=== PATIENT | female | born 1945 | race African-American/Black ===

== ENCOUNTER → 2018-06-17 13:12 | Outpatient (POV) | payer MEDICARE, OTHER, SELFPAY | PROVIDERS: Visit Provider Specialist | DX: R20.2 Paresthesia of skin (principal) | CPT/HCPCS: 95886; 95908 ==

== ENCOUNTER → 2022-10-11 11:40 | Outpatient (CLI) | payer MEDICARE, OTHER, SELFPAY ==
--- NOTE | 2022-10-11 11:47 | CA_ITS ---
FINAL REPORT TECHNIQUE: Ultrasound images of the deep venous system were obtained from the left groin to the calf veins. CLINICAL HISTORY: Left leg pain and edema for 1 month COMPARISON: None FINDINGS: The deep venous system is normally compressible. Normal flow is identified. IMPRESSION: No evidence of left lower extremity DVT. Reviewed, Interpreted and Dictated by Ant Galvan III, MD Transcribed by Xi Solis Authenticated and [facility]
== END ==
PROVIDERS: PCP Family Medicine; Visit Provider Nurse Practitioner Family
DX: M79.662 Pain in left lower leg (principal)
CPT/HCPCS: 93971

== ENCOUNTER → 2022-11-10 12:49 | Outpatient (CLI) | payer MEDICARE, OTHER, SELFPAY ==
--- NOTE | 2022-11-10 12:54 | US_ITS ---
FINAL REPORT CLINICAL HISTORY: leg pain, HTN, Smoker COMPARISON: None FINDINGS: ANKLE-BRACHIAL PRESSURE INDICES Pressure indices are as follows: RIGHT LOWER EXTREMITY: Ankle-brachial pressure index: 0.56 Comments: Moderate vascular disease LEFT LOWER EXTREMITY: Ankle-brachial pressure index: 0.46 Comments: Moderate vascular disease IMPRESSION: Moderate vascular disease bilaterally. If indicated, CTA or catheter angiogram may be helpful. Reviewed, Interpreted and Dictated by Ant Galvan III, MD Transcribed by Xi Solis Authenticated and [facility]
== END ==
PROVIDERS: PCP Family Medicine; Visit Provider Physician Assistant
DX: R01.1 Cardiac murmur, unspecified (principal); I73.9 Peripheral vascular disease, unspecified
CPT/HCPCS: 93306; 93923

== ENCOUNTER 2022-11-22 09:31 | Day surgery (SDC) | payer MEDICARE, OTHER, SELFPAY ==
[2022-11-22] VITALS (10 sets, daily range): BP systolic 140–180; BP diastolic 81–102; PULSE 74–88; RESP 17–20; TEMP 36.6; O2SAT 96–100; BMI 34.3
--- NOTE | 2022-11-22 07:05 | IR_ITS ---
APPROVED REPORT Patient Location: Outpatient PROCEDURES Right radial arterial access Catheter placed in the right common iliac artery Right common iliac artery antegrade angiogram with unilateral runoff to the right foot Catheter placement in the left common iliac artery Left common iliac artery antegrade angiogram with unilateral runoff to the left foot Catheter placed to the distal abdominal aorta Distal abdominal aortogram INDICATION Abnormal PALMER 0.5 bilaterally, Peripheral artery disease, Roane claudication class III Informed consent was obtained prior to the procedure. COMPLICATIONS None Estimated Blood Loss: Less than 10 mls TECHNIQUE 1% lidocaine used to incise the right anterior aspect of the right wrist. The right radial artery was accessed via the Salinger technique and a 6 Frisian hydrophilic sheath was placed in the right radial artery. An arterial cocktail using heparin lidocaine nitroglycerin and verapamil was administered intra-arterially. A PV multi curve was advanced under a wire and fluoroscopic guidance and placed in the right common iliac artery right common iliac artery antegrade angiography was performed with unilateral runoff to the right foot. This procedure was then repeated in the left common iliac artery. The catheter was then pulled back to the distal abdominal aorta where distal abdominal aortography was performed. Because of the presence of an apparent infrarenal abdominal aortic aneurysm it was decided to not intervene and do a CTA to determine if an aneurysm is actually present. Because of this the apparatus was removed the sheath was removed and hemostasis was achieved using TR banding patient was transferred the postop putting in stable condition ANGIOGRAPHIC RESULTS Infrarenal abdominal aorta is atheromatous and appears to have small infrarenal abdominal aortic aneurysm Left common iliac artery has an ostial 50 to 60% stenosis with a distal eccentric 70 to 80% stenosis. The left external iliac artery is severely diffusely diseased with diffuse 70 to 80% stenoses. The left common femoral artery is calcified with 60 to 70% stenoses. The left profunda femoris artery is widely patent. The left superficial femoral artery is ostially occluded and reconstitutes at Jose Raul's canal via a large densely collateralized profunda femoris. The popliteal artery has mild atheromatous plaque and has 30% distal stenoses. This gives rise to a large anterior tibialis artery which is patent into the left foot. The left posterior tibialis artery is proximally occluded. The left peroneal artery is patent in the proximal segment and then occluded at mid segment and then reconstitutes. All arteries terminate just proximal to the left foot with scant collaterals entering the foot Right common iliac artery has an ostial 70% stenosis distal high-grade stenosis with an occluded right internal iliac artery. The right external iliac artery is densely calcified with diffuse 70 to 80% stenoses. The right common femoral artery is densely calcified with 70 to 80% stenoses. The right superficial femoral artery is ostially occluded. The right profunda femoris artery is patent and collateralizes the popliteal artery at Jose Raul's canal. Distal to the Jose Raul's canal the popliteal artery has calcified long 50% stenosis. The right anterior tibialis artery has proximal 90% stenoses is small in caliber and then subtotally occludes at mid segment. It then reconstitutes distally via collaterals from a patent peroneal artery. The posterior tibialis artery is proximally occluded. The dorsalis pedis anterior to the foot via collaterals. There are scant collaterals at the posterior tibialis artery level IMPRESSION Severe disease as described above Possible infrar
[2022-11-22 10:44] LABS: Basophils # 0.1 K/mm3 (0-0.2); Basophils % 0.8 % (0.1-2.0); Eosinophils # 0.2 K/mm3 (0.0-0.4); Eosinophils % 2.9 % (0.1-12.0); Hematocrit 45.2 % (37.0-47.0); Hemoglobin 14.1 g/dL (12.2-16.2); Lymphocytes # 1.9 K/mm3 (0.7-4.5); Lymphocytes % 27.8 % (10-50); Mean Corpuscular HGB Conc 31.2 g/dL (31.8-35.4); Mean Corpuscular Hemoglobin 27.5 pg (27.0-31.2); Mean Corpuscular Volume 88.2 fl (81-99); Mean Platelet Volume 9.1 fl (7.4-10.4); Monocytes # 0.3 K/mm3 (0.1-1.0); Monocytes % 4.6 % (1.7-9.3); Neutrophils # 4.3 K/mm3 (1.8-7.8); Neutrophils % 63.9 % (37.0-80.0); Platelet Count 307 K/mm3 (142-424); Red Blood Count 5.12 M/mm3 (4.20-5.40); Red Cell Distribution Width 13.9 % (11.5-17.5); White Blood Count 6.8 K/mm3 (4.8-10.8)
[2022-11-22 10:51] LABS: Anion Gap 11.4 mEq/L (5-15); Blood Urea Nitrogen 17 mg/dl (7-17); Calcium 8.9 mg/dl (8.4-10.2); Carbon Dioxide 26 mmol/L (22.0-30.0); Chloride 109 mmol/L (98-107); Creatinine Clearance Estimated 70 mL/min (50-200); Estimated Glomerular Filt Rate 61 ml/min (>60); GFR (African American) 74 ML/MIN (>60); Glucose 103 mg/dl (74-100); Potassium 4.4 mmoL/L (3.5-5.1); Sodium 142 mmol/L (136-145)
== END 2022-11-22 16:10 | disposition home or self-care (01) ==
PROVIDERS: PCP Family Medicine; Visit Provider Internal Medicine
DX: I70.213 Atherosclerosis of native arteries of extremities with intermittent claudication, bilateral legs (principal); M79.606 Pain in leg, unspecified; F17.210 Nicotine dependence, cigarettes, uncomplicated; I77.1 Stricture of artery
CPT/HCPCS: 36247; 36248; 75625; 80048; 85025; 99152; 99153; C1725; C1769; J1644; Q9967

== ENCOUNTER → 2022-12-15 12:33 | Outpatient (CLI) | payer MEDICARE, OTHER, SELFPAY ==
--- NOTE | 2022-12-15 12:38 | CT_ITS ---
FINAL REPORT CLINICAL HISTORY: AAA/PAD COMPARISON: None FINDINGS: Thin section axial CT images of the abdomen, pelvis and lower extremities were obtained with contrast. Multiplanar reformatted images were also obtained and reviewed. ABDOMEN AND PELVIS: There is no abdominal aortic aneurysm or dissection. There are moderate to severe vascular calcifications. The celiac axis is unremarkable. There is moderate stenosis of the proximal superior mesenteric artery with 40 to 50% diameter narrowing. The inferior mesenteric artery is patent. There is no right renal artery stenosis. There is calcified plaque at the origin of the left renal artery with mild stenosis. There is mild stenosis of the common iliac arteries. There is mild and moderate stenosis of the right external iliac artery up to 50% stenosis. There is mild stenosis of the left external iliac artery. The internal iliac arteries are patent. RIGHT LOWER EXTREMITY: The common femoral and deep femoral arteries are patent. There is occlusion of the superior femoral artery with reconstitution of the popliteal artery. The posterior tibial artery is occluded proximally. The mid anterior tibial artery is occluded. Peroneal is patent to the ankle. LEFT LOWER EXTREMITY: The common femoral and deep femoral arteries are patent. The superficial femoral artery is occluded with reconstitution distally. There is multifocal mild stenosis of the popliteal artery. The posterior tibial artery is occluded. The distal anterior tibial artery is occluded. The peroneal is patent to the ankle. Review of the remainder of the abdomen and pelvis reveals: Multiple colonic diverticula. No evidence of mass. No acute findings. 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 Multifocal stenoses bilateral iliac arteries. Moderate stenosis proximal SMA. Reviewed, Interpreted and Dictated by Ant Galvan III, MD Transcribed by Xi Solis Authenticated and . [facility]
== END ==
PROVIDERS: PCP Family Medicine; Visit Provider Internal Medicine
DX: I71.40 Abdominal aortic aneurysm, without rupture, unspecified; R01.1 Cardiac murmur, unspecified; R68.89 Other general symptoms and signs; Z72.0 Tobacco use; Z82.49 Family history of ischemic heart disease and other diseases of the circulatory system; M79.604 Pain in right leg; M79.605 Pain in left leg; I70.213 Atherosclerosis of native arteries of extremities with intermittent claudication, bilateral legs
CPT/HCPCS: 75635; Q9967

== ENCOUNTER 2024-08-26 10:37 | Emergency (ER) | payer MEDICARE, OTHER, SELFPAY ==
[2024-08-26 10:48] VITALS: BP 120/63; PULSE 108; RESP 18; TEMP 36.7; O2SAT 99; BMI 30.9
--- OUTSIDE RECORDS SUMMARY | 2024-08-26 10:48 | XMS_ITS | Continuity of Care Document ---
Author Name [facility] Organization [facility] Care Team Providers Care Benefits Analyst Name Role Phone [facility] Unavailable Unavailable Medications Combined list of outpatient medications from Department of Defense and Veterans Affairs facilities.Medications provided include 1) outpatient medications from the last 15 months, and 2) patient-reported medications. Medication Details Route Status Patient Instructions Prescription Expires Prescription Number Last Dispense Date Ordering Provider Order Date Order Qty Source AMLODIPINE BESYLATE (AMLODIPINE BESYLATE), 5 MG, TABLET, ORAL, EXELAN PHARMACE, 1000 ea. BOTTLE Active [id number] 4 2023 30 Pharmac y Data Transac tion Service Facilit y AMLODIPINE BESYLATE (amlodipine besylate), 5 MG, TABLET, ORAL, LUPIN PHARMACEU, 1000 ea. BOTTLE Cancele d [id number] : 2023 0 Pharmac y Data Transac tion Service Facilit y AMLODIPINE BESYLATE (amlodipine besylate), 5 MG, TABLET, ORAL, LUPIN PHARMACEU, 1000 ea. BOTTLE Active [id number] 4 2023 90 Pharmac y Data Transac tion Service Facilit y CILOSTAZOL (cilostazol ), 50 MG, TABLET, ORAL, ELVIRA RANCH AR, 60 ea. BOTTLE Cancele d [id number] : 2023 0 Pharmac y Data Transac tion Service Facilit y CILOSTAZOL (cilostazol ), 50 MG, TABLET, ORAL, ELVIRA RANCH AR, 60 ea. BOTTLE Active [id number] 4 2023 180 Pharmac y Data Transac tion Service Facilit y CILOSTAZOL (CILOSTAZOL ), 50 MG, TABLET, ORAL, TEVA [place], 60 ea. BOTTLE Cancele d [id number] : 2023 0 Pharmac y Data Transac tion Service Facilit y CILOSTAZOL (CILOSTAZOL ), 50 MG, TABLET, ORAL, TEVA [place], 60 ea. BOTTLE Active [id number] 4 2023 180 Pharmac y Data Transac tion Service Facilit y CLOPIDOGREL (CLOPIDOGRE L BISULFATE), 75 MG, TABLET, ORAL, [facility], 500 ea. BOTTLE Cancele d [id number] 4 [id number] : 2023 0 Pharmac y Data Transac tion Service Facilit y CLOPIDOGREL (clopidogre l bisulfate), 75 MG, TABLET, ORAL, [employer], 1000 ea. BOTTLE Cancele d [id number] : 2023 0 Pharmac y Data Transac tion Service Facilit y SYNTHROID (LEVOTHYROX INE SODIUM), 75MCG, TABLET, ORAL, [facility] 1000 ea. BOTTLE Active [id number] 4 2023 90 Pharmac y Data Transac tion Service Facilit y Immunizations Combined list of available immunizations from the Department of Defense and Veterans Affairs facilities. Immunization Series Date Given Administered By Site Reaction Lot Number CVX Code Drug Owner/Photographer Status Comments Source COVID-19, mRNA, LNP-S, PF, 30 mcg/0.3 mL dose 2020 [employer] (PFR) Not Given COVID-19, mRNA, LNP-S, PF, 30 mcg/0.3 mL dose [facility] Influenza, high dose seasonal 2018 [place] () Not Given Influenza , high dose seasonal [facility] Social History Combined list of available smoking, tobacco, and other social history from Department of Defense and Veterans Affairs facilities. Social History Type Response Date Comment Sour e This section is an empty social history section. [facility]
--- OUTSIDE RECORDS SUMMARY | 2024-08-26 10:48 | XMS_ITS ---
Author Organization Unknown [facility] Start Date Provider Encounter for Check-up [id number] LANNY Anderson
--- NOTE | 2024-08-26 11:03 | XR_ITS ---
FINAL REPORT CLINICAL HISTORY: dropped can on great toe, pain, redness, swelling COMPARISON: None FINDINGS: LEFT FOOT Three views of the left foot demonstrate no acute fracture or dislocation. There is diffuse soft tissue edema of the 1st digit. A small Renata deformity is seen on the lateral view. Rounded lucency in the proximal portion of the 1st proximal phalanx measuring 7 mm is well-circumscribed and appears nonaggressive, likely due to benign bone cyst. IMPRESSION: Soft tissue edema without acute bony abnormality. Reviewed, Interpreted and Dictated by Carter Garibay MD Transcribed by Xi Solis Authenticated and . [facility]
--- NOTE | 2024-08-26 11:04 | HMH.EDGENADL ---
Discharge Plan Disposition Patient Disposition: Home, Self-Care Condition: Good Prescriptions Prescriptions: New sulfamethoxazole-trimethoprim [Bactrim DS] 800-160 mg tablet 1 tab PO BID 10 Days Qty: 20 0RF No Action levothyroxine 75 mcg tablet 75 mcg PO DAILY Xarelto 2.5 mg tablet 2.5 mg PO BID Qty: 60 3RF aspirin 81 mg capsule 81 mg PO DAILY Qty: 30 4RF clopidogrel [Plavix] 75 mg tablet 75 mg PO DAILY Qty: 90 3RF Referrals Follow up/Referrals: Salvador Anderson MD [Primary Care Provider] - See instructions Nerissa Garcia DPM [Staff Physician] - See instructions Activity Restrictions/Add. Instructions Additional Instructions/Restrictions: You were evaluated in the emergency department today. Please pickling solution maker your prescription for antibiotic at the pharmacy and take the full course as prescribed. Follow-up closely with Dr. Garcia with podiatry. Please call her office to schedule an appointment. Return to the emergency department for new or worsening symptoms. Clinical Impressions Clinical Impression: Cellulitis of great toe of left foot, Bone cyst Instructions Patient Instructions: DI for Cellulitis -- Adult, DI for Toe Sprain Print Language Print Language: Macanese Discharge ED Provider: Lilia Carrasco General Adult HPI General Chief complaint: Extremity Injury, Lower Stated complaint: AO 08/23/24, inj left foot Time Seen by Provider: 08/26/24 11:00 Mode of Arrival: Ambulatory Source of Information: Patient Description of Symptoms (Recalled from ER Triage Doc. by RN): pt presents to the ED with left foot swelling and big toe pain. pt reports she dropped a can on her foot Staurday and can't get the swelling or pain to go away. pt states its hard for her to walk. pt is concerned about a pocket of pus on the top of the foot. History of Present Illness HPI narrative: This patient is a 78-year-old female with a history of PAD and tobacco abuse presented to the emergency department for evaluation of concern for left foot pain and swelling. Patient states that she dropped a can on her foot Sunday and has been able to get the swelling or pain to go down. She states that she is worried that it could be infected. She notes is difficult to walk secondary to the pain. No fevers or infectious symptoms noted otherwise, no history of diabetes. No history of septic or gouty arthritis in the past. She notes she was fine prior to dropping the can on her foot. Related Data Home Medications ?Medication ?Instructions ?Recorded ?Confirmed levothyroxine 75 mcg tablet 75 mcg PO DAILY thyroid 11/08/22 04/05/23 Previous Rx's ?Medication ?Instructions ?Recorded rivaroxaban 2.5 mg tablet (Xarelto) 2.5 mg PO BID #60 tabs 02/15/23 aspirin 81 mg capsule 81 mg PO DAILY #30 caps 07/17/23 clopidogrel 75 mg tablet (Plavix) 75 mg PO DAILY #90 tabs 08/29/23 sulfamethoxazole 800 1 tab PO BID 10 days #20 tabs 08/26/24 mg-trimethoprim 160 mg tablet (Bactrim DS) Allergies Allergy/AdvReac Type Severity Reaction Status Date / Time No Known Drug Allergies Allergy Unknown Unknown Verified 04/05/23 13:[address] [facility] Disclaimer: The information contained in this section may have been updated after the patient was seen, as this information can be updated by other users. Medical History Renal artery stenosis Femoral artery occlusion Family history of heart disease Tobacco user Leg pain Heart murmur Family History Mother Diabetes Sister Coronary artery disease Social History Smoking Status: Never smoker alcohol intake: current alcohol intake frequency: holidays/special occasions only current occupational status: retired Travel in the last 8 weeks?: Inside the [place] Have you lived/traveled outside US in past 30 days?: No Contact w/someone who lives/traveled outside US past 30 days?: No Exposure to someone with infectious disease in past 14 days?: No Do you have a fever (greater than 100.4 F or 38 C)?: No Have you tested positive for COVID-19?: No Exposed to someone with COVID-19 in past 14 days?: No Do you have a sore throat?: No Do you have a cough?: No Do you have any weakness?: No Do you have any diarrhea?: No Are you experiencing any unusual bleeding?: No Do you have any muscle aches/pain?: No Do you have any abdominal pain?: No Are you experiencing loss of taste or smell?: No Other Medical History Have you received the Pneumonia Vaccine: Yes ROS Obtained: Yes All systems reviewed & no additional complaints except as documented Physical Exam General General appearance: alert and in no apparent distress Head Head exam: atraumatic and normocephalic Eye Eye exam: Present normal appearance, PERRL and EOMI ENT ENT exam: Present normal exam, normal oropharynx, mucous membranes moist and normal external ear exam Neck Neck exam: Present normal inspection, full ROM and trachea midline; Absent tenderness Chest Chest inspection: Present normal inspection and symmetric chest wall rise; Absent tenderness Respiratory Respiratory exam: Present normal lung sounds bilaterally; Absent respiratory distress, wheezes, stridor or accessory muscle use Cardiovascular Cardiovascular exam: Present regular rate and normal rhythm Abdominal Exam Abdominal exam: Present soft; Absent distention, tenderness or guarding Extremities Exam Extremities exam: Present tenderness, normal capillary refill, edema and joint swelling Expanded Lower Extremity Exam Left: Top foot image: 1. Redness, warmth, and tenderness to palpation with soft tissue swelling. Intact range of motion of the great toe. No palpable fluctuance or induration. Back Exam Back exam: Present normal inspection and full ROM; Absent tenderness Neurological Exam Neurological exam: Present alert, oriented X3, CN II-XII intact and normal gait; Absent motor sensory deficit Psychiatric Psychiatric exam: Present normal affect and normal mood Skin Skin exam: Present warm and dry Medical Decision Making Medical Records Medical records reviewed: Yes I reviewed the patient's medical records. Screening: Per USPSTF and CDC recommendations, given the prevalence of disease in our region, it is our hospital?s policy to screen for HIV and viral Hepatitis for all patients aged 18 and over and those with ongoing risk factors. [place] Inquiry Pt receiving controlled substance: No Vital Signs: 08/26/24 10:48 08/26/24 14:08 Temperature 98.1 F Temperature Source Oral Pulse Rate 99 H Pulse Rate [Right] 108 H Respiratory Rate 18 Blood Pressure 133/76 Blood Pressure [Right Arm] 120/63 Blood Pressure Mean [Right Arm] 82 Blood Pressure Source Automatic Cuff Blood Pressure Source [Right Arm] Automatic Cuff Blood Pressure Position Sitting Blood Pressure Position [Right Arm] Supine 02 Sat by Pulse Oximetry 99 97 Oxygen Delivery Method Room Air Room Air Lab Data Lab results reviewed: Yes I reviewed the patient's lab results. Lab Results 08/26/24 11:17: WBC 7.4, RBC 5.17, Hgb 14.5, Hct 44.6, MCV 86.3, MCH 28.0, MCHC 32.5, RDW 13.4, Plt Count 380, MPV 9.7, Neut % (Auto) 67.0, Lymph % (Auto) 21.5, Geary % (Auto) 8.0, Eos % (Auto) 2.3, Baso % (Auto) 0.9, Neut # (Auto) 4.9, Lymph # (Auto) 1.6, Geary # (Auto) 0.6, Eos # (Auto) 0.2, Baso # (Auto) 0.1, ESR 68 H, Sodium 139, Potassium 3.9, Chloride 107, Carbon Dioxide 27, Anion Gap 8.9, BUN 13, Creatinine 1.10 H, Estimated Creat Clear 55, Estimated GFR 48 L, Est GFR ( Amer) 58 L, Glucose 107 H, Calcium 9.8, Total Bilirubin 0.4, AST 22, ALT 17, Alkaline Phosphatase 107, C-Reactive Protein 68.0 H, Total Protein 7.1, Albumin 3.9, Globulin 3.2, Albumin/Globulin Ratio 1.2 08/26/24 11:17 08/26/24 11:17 Orders (Tests/Meds): ED MEDICATIONS Discontinued Medications Generic Name Dose Route Start Last Admin Trade Name Freq PRN Reason Stop Dose Admin Iopamidol 100 ml 08/26/24 14:22 08/26/24 14:24 Iopamidol-370 (76%);100ml Bottle IV 08/26/24 14:23 100 ml ONCE ONE Administration Iopamidol 20 ml 08/26/24 14:22 08/26/24 14:24 Iopamidol-370 (76%);100ml Bottle IV 08/26/24 14:23 20 ml ONCE ONE Administration Sodium Chloride 50 ml 08/26/24 14:22 08/26/24 14:24 0.9 % Sodium Chloride 50 Ml Vial IV 08/26/24 14:23 50 ml ONCE ONE Administration Sodium Chloride 10 ml 08/26/24 14:22 08/26/24 14:24 Sodium Chloride 0.9% 10ml Syr (Rad Only) IV 08/26/24 14:23 10 ml ONCE ONE Administration Sodium Chloride 50 ml 08/26/24 14:23 08/26/24 14:24 0.9 % Sodium Chloride 50 Ml Vial IV 08/26/24 14:24 50 ml ONCE ONE Administration Trimethoprim/Sulfamethoxazole 1 each 08/26/24 14:37 08/26/24 15:08 Sulfa/Trimethoprim 1 Tablet PO 08/26/24 14:38 1 each ONCE ONE Administration ORDERS Category Date Time Status CT foot LT w con Stat Cat Scan 08/26/24 13:23 Taken Podiatry Consult [Consult to Podiatry] [CONS] Routine Cons 08/26/24 13:34 Active Foot XR left minimum 3 views [XR foot LT min 3V] Stat Exams 08/26/24 11:03 Completed CRP [C-Reactive Protein] Stat Lab 08/26/24 11:17 Completed Complete Blood Count Auto Diff Stat Lab 08/26/24 11:17 Completed Comprehensive Metabolic Panel Stat Lab 08/26/24 11:17 Completed ESR [Erythrocyte Sedimentation Rate] Stat Lab 08/26/24 11:17 Completed Medical Decision Narrative: In summary, this patient is a 78-year-old female presenting to the Emergency Department for evaluation of knee pain, redness, swelling of left great toe after dropping a can on it several days ago. Differential diagnoses considered include but are not limited to fracture, contusion, strain/sprain, cellulitis, gouty arthritis, septic arthritis. Ruling out the most morbid conditions drove assessment. It should be noted patient's history includes tobacco abuse and PAD which may or may not be at goal therapy. This complicates all aspects of care by increasing patient's risk for morbidity. I reviewed patient's past medical records and noted prior evaluations for PAD in the past. On exam, the patient is sitting upright in no acute distress. She is neurovascularly intact in her lower extremity but does have significant redness, warmth, swelling, tenderness to the left great toe. She has no palpable fluctuance or induration, she has intact range of motion of the toe. This could all be hematoma and acute swelling in the setting of injury, however the degree of redness and warmth concerns me for possible infectious process. Workup included CBC, CMP, ESR, CRP, x-rays of the left foot. I independently interpreted x-ray prior to the radiologist read and noted no acute fracture but she does have a bone cyst. Please see their read for final interpretation. Labs were obtained that demonstrated significant elevated inflammatory markers but reassuring CBC and chemistry. I had an interactive discussion with Dr. Garcia with podiatry who recommended CT with IV contrast to evaluate for abscess. We both feel that based on her presentation, were concerned for cellulitis. I independently interpreted CT prior to radiology read and noted no appreciable fluid collection concerning for abscess. Given this, I feel the patient is appropriate for discharge home with prescription for Bactrim to treat presumed cellulitis. Instructions for close follow-up with podiatry were given as well as strict return precautions. Critical Care Critical Care Time Critical Care Time: No
--- NOTE | 2024-08-26 11:09 | PC.NURSE ---
RAD currently with pt
[2024-08-26 11:26] LABS: Basophils # 0.1 K/mm3 (0-0.2); Basophils % 0.9 % (0.1-2.0); Eosinophils # 0.2 Kmm3 (0.0-0.4); Eosinophils % 2.3 % (0.1-12.0); Hematocrit 44.6 % (37.0-47.0); Hemoglobin 14.5 g/dL (12.2-16.2); Lymphocytes # 1.6 K/mm3 (0.7-4.5); Lymphocytes % 21.5 % (10-50); Mean Corpuscular HGB Conc 32.5 g/dL (31.8-35.4); Mean Corpuscular Volume 86.3 fl (81-99); Mean Platelet Volume 9.7 fl (7.4-10.4); Monocytes # 0.6 K/mm3 (0.1-1.0); Neutrophils # 4.9 K/mm3 (1.8-7.8); Nucleated Red Blood Cells # 0 10^3/uL; Nucleated Red Blood Cells % 0 %; Platelet Count 380 K/mm3 (142-424); Red Blood Count 5.17 M/mm3 (4.20-5.40); Red Cell Distribution Width 13.4 % (11.5-17.5); Red Cell Distribution Width-SD 42.3 fL; White Blood Count 7.4 K/mm3 (4.8-10.8)
[2024-08-26 11:40] LABS: Albumin Level 3.9 g/dl (3.5-5.0); Chloride 107 mmol/L (98-107); Potassium 3.9 mmoL/L (3.5-5.1); Sodium 139 mmol/L (136-145)
[2024-08-26 11:42] LABS: Blood Urea Nitrogen 13 mg/dl (7-17); Creatinine Clearance Estimated 55 mL/min (50-200); Estimated Glomerular Filt Rate 48 ml/min (>60); GFR (African American) 58 ML/MIN (>60)
[2024-08-26 11:43] LABS: Alanine Aminotransferase 17 U/L (12-78); Albumin/Globulin Ratio 1.2 (1.1-1.8); Alkaline Phosphatase 107 U/L (38-126); Anion Gap 8.9 mEq/L (5-15); Aspartate Amino Transferase 22 U/L (14-36); Bilirubin,Total 0.4 mg/dl (0.2-1.3); Calcium 9.8 mg/dl (8.4-10.2); Carbon Dioxide 27 mmol/L (22.0-30.0); Globulin 3.2 g/dL (1.3-3.2); Glucose 107 mg/dl (74-100); Total Protein,Serum 7.1 g/dl (6.3-8.2)
[2024-08-26 12:13] LABS: Erythrocyte Sedimentation Rate 68 mm/hr (0-30)
--- NOTE | 2024-08-26 13:10 | PC.NURSE ---
Dr Carrasco at bedside
--- NOTE | 2024-08-26 13:23 | CT_ITS ---
FINAL REPORT TECHNIQUE: Axial imaging of the left foot was obtained after the intravenous administration of contrast. Reformatted images were also obtained and reviewed. This study was performed with techniques to keep radiation doses as low as reasonably achievable (ALARA). Individualized dose reduction techniques using automated exposure control or adjustment of mA and/or kV according to the patient's size were employed. CLINICAL HISTORY: dropped can on great toe, pain and swelling FINDINGS: There is moderate Renata deformity. A small plantar spur is present. There is no acute fracture or dislocation. Visualized joint spaces are normally aligned. There is soft tissue edema over the dorsum of the foot. IMPRESSION: Soft tissue edema without acute bony abnormality. Reviewed, Interpreted and Dictated by Carter Garibay MD Transcribed by Alida Gonzalez Authenticated and [facility]
[2024-08-26 14:08] VITALS: BP 133/76; PULSE 99; O2SAT 97
--- NOTE | 2024-08-26 14:15 | PC.NURSE ---
pt taken to ct scan.
[2024-08-26] MEDS: IOPAMIDOL-370 (76%);100ML BOTTLE 20 ML IV (14:24)
[2024-08-26] MEDS: IOPAMIDOL-370 (76%);100ML BOTTLE 100 ML IV (14:24)
[2024-08-26] MEDS: SODIUM CHLORIDE 0.9% 10ML SYR (RAD ONLY) 10 ML IV (14:24)
[2024-08-26] MEDS: 0.9 % SODIUM CHLORIDE 50 ML VIAL IV ×2 (14:24)
--- NOTE | 2024-08-26 14:25 | PC.NURSE ---
pt back from ct scan
[2024-08-26] MEDS: SULFA/TRIMETHOPRIM 1 TABLET 1 EACH PO (15:08)
[2024-08-26 15:17] VITALS: BP 95/69; PULSE 76; RESP 18; TEMP 37.1; O2SAT 99
== END 2024-08-26 15:18 | disposition home or self-care (01) ==
PROVIDERS: Emergency Provider Emergency Medicine; PCP Family Medicine
DX: L03.032 Cellulitis of left toe (principal); M79.675 Pain in left toe(s); M85.672 Other cyst of bone, left ankle and foot; W20.8XXA Other cause of strike by thrown, projected or falling object, initial encounter
CPT/HCPCS: 73630; 73701; 80053; 85025; 85651; 86140; 99284; Q9967

== ENCOUNTER 2024-12-01 12:33 | Emergency (ER) | payer MEDICARE, OTHER, SELFPAY ==
[2024-12-01 12:39] VITALS: BP 171/79; PULSE 103; RESP 17; TEMP 36.8; O2SAT 97; BMI 34.4
--- OUTSIDE RECORDS SUMMARY | 2024-12-01 12:51 | XMS_ITS | Clinical Summary ---
Author Organization [facility] Address [address] [place] [address] Care Team Providers Care Seasonal Package Handler Name Role Phone Quinten Anderson MD Primary Care Provider [phone] Social History Tobacco Use Types Packs/Day Years Used Date Smoking Tobacco: Never Assessed Comments Unknown Sex and Gender Information Value Date Recorded Sex Assigned at Not on file Legal Sex Female 8:19 PM EDT Gender Identity Not on file Sexual Orientation Not on file Last Filed Vital Signs Vital Sign Reading Time Taken Comments Blood Pressure 132/58 11/10/2022 2:39 PM EDT Pulse 88 11/10/2022 2:39 PM EDT Temperature - - Respiratory Rate - - Oxygen Saturation - - Inhaled Oxygen Concentration - - Weight 90.7 kg (200 lb) 11/10/2022 2:39 PM EDT Height 162.6 cm (5' 4 ) 11/10/2022 2:39 PM EDT Body Mass Index 34.33 11/10/2022 2:39 PM EDT Plan of Treatment Health Maintenance Due Date Last Done Comments [facility]-Bone Density Scan 1945 [facility]-Depression Screening 1946 [facility]-/Child/Adol SDOH Screenings 01/01/1947 UKY- SDOH Screenings 1964 [facility]Y-Adult SDOH Screenings 1964 [facility]Y-DTaP,Tdap,and Td Vaccines (1 - Tdap) 1965 UKY-Pneumococcal Vaccine: 50+ Years (1 of 1 - PCV) 1996 UKY-Zoster Vaccines (1 of 2) 1996 UKY-RSV Vaccine: 60+ Years or (1 - 1-dose 75+ series) 2021 [id number] Vaccine ( season) 2023 04/08/2021, 07/07/2020 [facility]Y-Influenza Vaccine (#1) 12/29/202402/08, 03/28/2016 HPV Vaccines Aged Out No longer eligi ble based on patient's age to complete this topic UKY-HIB Vaccines Aged Out No longer e ligible based on patient's age to complete this topic UKY-Hepatitis A Vaccines Aged Out No longer eligible based on patient's age to complete this topic UKY-IPV Vaccines Aged Out No longer e ligible based on patient's age to complete this topic UKY-Rotavirus Vaccines Aged Out No lo nger eligible based on patient's age to complete this topic Insurance MEDICARE [facility] Care Teams Seasonal Package Handler Relationship Specialty Start Date End Date Quinten Anderson MD [address] [place] [address] [address] [place] Michael [address] PCP - General 09/10/20
--- OUTSIDE RECORDS SUMMARY | 2024-12-01 12:51 | XMS_ITS | Clinical Summary ---
Author Organization [facility] Address [address] [place] [address] Care Team Providers Care Bilingual Manager Name Role Phone Unavailable Primary Care Provider Unavailabl e Social History Tobacco Use Types Packs/Day Years Used Date Smoking Tobacco: Never Assessed Abuse Screen Answer Date Recorded Unsafe at Home or Work/School Not on file Feels Threatened by Someone? Not on file 12/2022 Does Anyone Keep You from Co ntacting Others or Doint Things Outside the Home? Not on file 02/05/2023 Physical Sign of Abuse Present Not on file 1 Housing Stability Answer Date Recorded Current Living Arrangements Not on file 12/2022 Potentially Unsafe Housing Conditions Not on juanjo e 02/05/2023 Family and Community Support Answer Mikey e Recorded Help with Day-to-Day Activities Not on file 02/05/2023 Lonely or Isolated Not on file 02/05/2023 Employment Answer Date Recorded Do you want help finding or keeping work or a darrel b? Not on file 02/05/2023 Disabilities Answer Date Recorded Concentrating, Remembering, or Making Decisions Difficulty Not on file 02/05/2023 Doing Errands Independently Difficulty Not on fi le 02/05/2023 Education Answer Date Recorded Help with school or training? Not on file Preferred Language Not on file 02/05/2023 Comments Unknown Sex and Gender Information Value Date Recorded Sex Assigned at Not on file Legal Sex Female 10:45 AM EDT Gender Identity Not on file Sexual Orientation Not on file Last Filed Vital Signs Vital Sign Reading Time Taken Comments Blood Pressure 139/84 05/14/2013 2:27 PM EST Pulse 98 05/14/2013 2:27 PM EST Temperature 36.8 C (98.2 F) 05/14/2013 2:27 PM EST Respiratory Rate - - Oxygen Saturation 96% 05/14/2013 2:27 PM EST Inhaled Oxygen Concentration - - Weight 98.4 kg (217 lb) 05/14/2013 2:27 PM EST Height 162.6 cm (5' 4 ) 05/14/2013 2:27 PM EST Body Mass Index 37.25 05/14/2013 2:27 PM EST Plan of Treatment Health Maintenance Due Date Last Done Comments ANNUAL PHYSICAL 1945 DXA SCAN 1945 HEPATITIS C SCREENING 1946 TDAP/TD VACCINES (1 - Tdap) 1965 Pneumococcal Vaccine 50+ (1 of 1 - PCV) 1996 ZOSTER VACCINE (1 of 2) 1996 RSV Vaccine - Adults (1 - 1-dose 75+ series) COVID-19 Vaccine (1 - 2023- season) 2023 INFLUENZA VACCINE 01/28/2025
--- OUTSIDE RECORDS SUMMARY | 2024-12-01 12:51 | XMS_ITS | Encounter Summary ---
Author Organization Healthcare Address [address] [place] [address] Care Team Providers Care Butcherette Name Role Phone Quinten Anderson MD Primary Care Provider [phone] Encounter Details Date Type Department Care Team (Late st Contact Info) Description 12/15/2022 Orders Only External Location [address] [place] [address] Marty Hargrove MD [address] [place] [address] [address] [place] [address] Social History Tobacco Use Types Packs/Day Years Used Date Smoking Tobacco: Never Assessed Comments Unknown Sex and Gender Information Value Date Recorded Sex Assigned at Not on file Legal Sex Female 8:19 PM EDT Gender Identity Not on file Sexual Orientation Not on file documented as of this encounter Plan of Treatment Not on file documented as of this encounter Procedures Procedure Name Priority Date/Time Associated Diagnosis Comments CT ANGIO ABDOMEN 12/15/2022 1:11 PM EDT documented in this encounter Results * CT Angio Abdomen (12/15/2022 1:11 PM EDT) Anatomical Region Laterality Modality Abdomen Computed Tomogra phy 12/15/2022 1:11 PM EDT us Marty Hargrove MD IMG CT PROCEDURES Final Re sult documented in this encounter Visit Diagnoses Not on filedocumented in this encounter Care Teams Butcherette Relationship Specialty Start Date End Date Quinten Anderson MD [address] [facility] [address] [place] [address] PCP - General 09/10/20 documented as of this encounter
--- NOTE | 2024-12-01 13:13 | CT_ITS ---
FINAL REPORT TECHNIQUE: Routine axial images were obtained from the lung apices to below the diaphragm following IV contrast administration. Individualized dose reduction techniques using automated exposure control or adjustment of the mA and/or kV according to the patient size were employed. CLINICAL HISTORY: abscess versus mass COMPARISON: None FINDINGS: CT CHEST WITH CONTRAST: A large subcarinal node is present in the mediastinum, measuring 30 x 17 mm in size. No other enlarged nodes are noted in the lia, mediastinum, or axillary regions. There is a dominant lobular spiculated left upper lobe mass, 20 x 13 mm in size, best seen on image #15 of series 3. There is another slightly more inferior nodule in the left upper lobe, seen on image #26 of series 3, measuring 10 mm in size. There is an ill-defined mass in the posterior right lower lobe, 9 mm in size, best seen on image #37 of series 3. A peripheral right upper lobe nodule measures 7 mm, best seen on image #23 of series 3. Note is made of elevation of the left hemidiaphragm. No pleural or pericardial effusions are identified. IMPRESSION: Dominant lobular left upper lobe mass, 20 x 13 mm in size, is noted. There are several other smaller nodules in the lung mckeon bilaterally, measuring up to 10 mm in size. The findings are worrisome for neoplasm, and correlation with PET/CT and tissue sampling might be helpful. Large subcarinal node, 30 x 17 mm in size. Reviewed, Interpreted and Dictated by Carter Garibay MD Transcribed by Renée Hills Authenticated and [facility]
--- NOTE | 2024-12-01 13:18 | ED_ITS ---
<Statement entered by Loulou Rivera MD - 12/09/24 07:35> I was consulted by the TIANA, and we discussed the complexity of the problems being addressed. I approved the treatment and management plan for this patient's care in the emergency department, thus performing a substantive portion of the medical decision making. Loulou Rivera MD, JAGRUTI, FACEP Discharge Plan Disposition Patient Disposition: Home, Self-Care Prescriptions Prescriptions: New clindamycin HCl [Cleocin HCl] 300 mg capsule 300 mg PO BID Qty: 20 0RF No Action levothyroxine 75 mcg tablet 75 mcg PO DAILY Xarelto 2.5 mg tablet 2.5 mg PO BID Qty: 60 3RF aspirin 81 mg capsule 81 mg PO DAILY Qty: 30 4RF clopidogrel [Plavix] 75 mg tablet 75 mg PO DAILY Qty: 90 3RF sulfamethoxazole-trimethoprim [Bactrim DS] 800-160 mg tablet 1 tab PO BID 10 Days Qty: 20 0RF Referrals Follow up/Referrals: comprehensive breast care [Other] - See instructions Referral Note: Call for mammogram and quick referral for possible cancer Salvador Anderson MD [Primary Care Provider, Medical] - See instructions Pascual Allred MD [Physician, Pulmonology] - See instructions Referral Note: several lung nodules Clinical Impressions Clinical Impression: Abscess of skin or subcutaneous tissue, Lung nodule, Breast mass Instructions Patient Instructions: DI for Breast Mass -- Uncertain Cause, DI for Pulmonary Nodule, DI for Skin Abscess Print Language Print Language: Slovak Discharge ED Provider: Peewee Dominguez Adult HPI <Brigid Brown (ED), AIRCRAFT STRUCTURAL REPAIRER - Last Filed: 12/01/24 16:46> General Chief complaint: Skin/Abscess/Foreign Body Stated complaint: Poss infection L breast- states discharge Time Seen by Provider: 12/01/24 12:57 Mode of Arrival: Ambulatory Source of Information: Patient Description of Symptoms (Recalled from ER Triage Doc. by RN): Patient states that she has a left breast abscess that has opened and is draining, has been there for about 2 days. History of Present Illness HPI narrative: 78-year-old female presents to the ED today for complaint of left breast abscess versus mass. She has noticed this area about 2 weeks ago. She says that it opened 2 to 3 days ago. This started draining at that time. Patient states that it is not painful at this time. No fevers or chills. No nausea, vomiting or diarrhea. No other symptoms at this time. She denies any history of breast cancer. Patient does have a history of heart disease, heart murmur, PAD, renal artery stenosis. Related Data Home Medications ?Medication ?Instructions ?Recorded ?Confirmed levothyroxine 75 mcg tablet 75 mcg PO DAILY thyroid 04/05/23 Previous Rx's ?Medication ?Instructions ?Recorded rivaroxaban 2.5 mg tablet (Xarelto) 2.5 mg PO BID #60 tabs 02/15/23 aspirin 81 mg capsule 81 mg PO DAILY #30 caps 06/28 01/21 clopidogrel 75 mg tablet (Plavix) 75 mg PO DAILY #90 t abs 08/29/23 sulfamethoxazole 800 1 tab PO BID 10 days #20 tab s 08/26/24 mg-trimethoprim 160 mg tablet (Bactrim DS) clindamycin HCl 300 mg capsule 300 mg PO BID #20 caps 12/01/24 (Cleocin HCl) Allergies Allergy/AdvReac Type Severity Reaction Status Date / Time Penicillins Allergy Rash Verified 12/01/24 12:45 PFSH <Brigid Brown (ED), AIRCRAFT STRUCTURAL REPAIRER - Last Filed: 12/01/24 16:46> PFS Disclaimer: The information contained in this section may have been updated after the patient was seen, as this information can be updated by other users. Medical History Renal artery stenosis Femoral artery occlusion Family history of heart disease Tobacco user Leg pain Heart murmur Family History Mother Diabetes Sister Coronary artery disease Social History Smoking Status: Current every day smoker tobacco type: cigarettes packs per day: 1 alcohol intake: current alcohol intake frequency: holidays/special occasions only current occupational status: retired Travel in the last 8 weeks?: Inside the [place] Other Medical History Have you received the Pneumonia Vaccine: Yes <Brigid Brown (ED), AIRCRAFT STRUCTURAL REPAIRER - Last Filed: 12/01/24 16:46> ROS Obtained: Yes Systems reviewed as appropriate & no additional complaints except as documented Constitutional Constitutional: Reports as per HPI Physical Exam <Brigid Brown (ED), AIRCRAFT STRUCTURAL REPAIRER - Last Filed: 12/01/24 16:46> General General appearance: alert and in no apparent distress Head Head exam: atraumatic and normocephalic Eye Eye exam: Present normal appearance, PERRL and EOMI ENT ENT exam: Present normal oropharynx and mucous membranes moist Neck Neck exam: Present full ROM and trachea midline Chest Chest inspection: Present tenderness and abscess (Approximately 1 and half to 2 cm circumferential to the hole to the left of the nipple, draining, firm) Respiratory Respiratory exam: Present normal lung sounds bilaterally Cardiovascular Cardiovascular exam: Present regular rate, normal rhythm, normal heart sounds, +S1 and +S2 Extremities Exam Extremities exam: Present normal inspection, full ROM and normal capillary refill Neurological Exam Neurological exam: Present alert and oriented X3 Skin Skin exam: Present warm, erythema and other (Left breast to the left of the nipple firm area, draining) Medical Decision Making <Brigid Brown (ED), AIRCRAFT STRUCTURAL REPAIRER - Last Filed: 12/01/24 16:46> Medical Records Screening: Per USPSTF and CDC recommendations, given the prevalence of disease in our region, it is our hospital?s policy to screen for HIV and viral Hepatitis for all patients aged 18 and over and those with ongoing risk factors. [place] Inquiry Pt receiving controlled substance: No [place] was queried for this patient: No Vital Signs: 12/01/24 12:39 12/01/24 15:04 12/01/24 15:30 Temperature 98.2 F Temperature Source Oral Pulse Rate 94 H 90 Pulse Rate [Right Brachial] 103 H Respiratory Rate 17 Blood Pressure 183/82 H 144/77 H Blood Pressure [Right Arm] 171/79 H Blood Pressure Mean [Right Arm] 109 Blood Pressure Source Blood Pressure Source [Right Arm] Automatic Cuff Blood Pressure Position Blood Pressure Position [Right Arm] Sitting 02 Sat by Pulse Oximetry 97 98 99 Oxygen Delivery Method Room Air 12/01/24 16:01 12/01/24 17:02 Temperature 98.6 F Temperature Source Oral Pulse Rate 89 80 Pulse Rate [Right Brachial] Respiratory Rate 14 Blood Pressure 157/86 H 173/89 H Blood Pressure [Right Arm] Blood Pressure Mean [Right Arm] Blood Pressure Source Automatic Cuff Blood Pressure Source [Right Arm] Blood Pressure Position Supine Blood Pressure Position [Right Arm] 02 Sat by Pulse Oximetry 98 Oxygen Delivery Method Room Air Lab Data Lab Results 12/01/24 13:29: WBC 6.5, RBC 4.63, Hgb 13.0, Hct 39.6, MCV 85.5, MCH 28.1, MCHC 32.8, RDW 13.6, Plt Count 358, MPV 10.2, Neut % (Auto) 63.0, Lymph % (Auto) 22.7, Poc[place]ontas % (Auto) 10.5 H, Eos % (Auto) 2.5, Baso % (Auto) 0.8, Neut # (Auto) 4.1, Lymph # (Auto) 1.5, Poc[place]ontas # (Auto) 0.7, Eos # (Auto) 0.2, Baso # (Auto) 0.1, ESR 21, Sodium 138, Potassium 4.5, Chloride 107, Carbon Dioxide 26, Anion Gap 9.5, BUN 11, Creatinine 1.00, Estimated Creat Clear 68, Estimated GFR 54 L, Est GFR ( Amer) 65, Glucose 107 H, Lactate 1.3, Calcium 9.1, Magnesium 2.3, Total Bilirubin 0.7, AST 34, ALT 14, Alkaline Phosphatase 96, Troponin I < 0.01, C-Reactive Protein 77.4 H, Total Protein 6.7, Albumin 3.8, Globulin 2.9, Albumin/Globulin Ratio 1.3 12/01/24 16:21: Troponin I < 0.01 12/01/24 13:29 12/01/24 13:29 Orders (Tests/Meds): ED MEDICATIONS Discontinued Medications Generic Name Dose Route Start Last Admin Trade Name Libra PRN Reason Stop Dose Admin Iopamidol 75 ml 12/01/24 14:50 12/01/24 14:51 Iopamidol-370 (76%);100ml Bottle IV 12/01/24 14:51 75 ml ONCE ONE Administration Sodium Chloride 10 ml 12/01/24 14:50 12/01/24 14:51 Sodium Chloride 0.9% 10ml Syr (Rad Only) IV 12/01/24 14:51 10 ml ONCE ONE Administration ORDERS Category Date Time Status CT chest w con Stat Cat Scan 12/01/24 13:13 Completed POCUS Point of Care (ER Only) Stat Exams 12/01/24 14:58 Completed CBC [Complete Blood Count Auto Diff] Stat Lab 12/01/24 13:29 Completed CRP [C-Reactive Protein] Stat Lab 12/01/24 13:29 Completed Comprehensive Metabolic Panel Stat Lab 12/01/24 13:29 Completed Erythrocyte Sedimentation Rate Stat Lab 12/01/24 13:29 Completed Lactic Acid Stat Lab 12/01/24 13:29 Completed Magnesium Stat Lab 12/01/24 13:29 Completed Trop I [Troponin I] Stat Lab 12/01/24 13:29 Completed Troponin I Q3H Lab 12/01/24 16:21 Completed Blood Culture Stat Micro 12/01/24 13:44 Received Medical Decision Narrative: patient is a 78-year-old female presenting to the emergency department for evaluation of abscess versus mass of left breast that is draining for 2 days. This has been there for 2 weeks. Patient is hemodynamically stable and nontoxic-appearing upon arrival, afebrile. Differential diagnosis includes abscess versus mass. Workup will be conducted with hematologic labs, specific imaging including CT with contrast of chest. Initial inventions include labs. Initial workup reviewed by me [hematologic labs are remarkable for elevated inflammatory markers. We tried to order a formal ultrasound but were unable to get one. We were told that patient had to have a mammogram prior to having an ultrasound here. Dr. Dominguez did a bedside POCUS and saw a small amount of fluid. We will place patient on antibiotics and send patient to breast center for outpatient care. This could be an abscess or breast cancer. I am still waiting for formal imaging report before I discharge patient. Patient's CT scan of chest showed several lung nodules that are suspicious for malignancy. I discussed this with the patient and will give her Dr. Ansari number to follow-up for bronchoscopy. Will also give her [facility] comprehensive breast cares #2 follow-up with them for the breast mass. See the formal imaging report for full report. Upon repeat evaluation patient's pain is improved, appears better perfused, appears the same, appears worse. Due to this patient will be discharged with follow-up with pulmonology and comprehensive breast care. <Peewee Dominguez MD - Last Filed: 12/02/24 13:28> Vital Signs: 12/01/24 12:39 12/01/24 15:04 12/01/24 15:30 Temperature 98.2 F Temperature Source Oral Pulse Rate 94 H 90 Pulse Rate [Right Brachial] 103 H Respiratory Rate 17 Blood Pressure 183/82 H 144/77 H Blood Pressure [Right Arm] 171/79 H Blood Pressure Mean [Right Arm] 109 Blood Pressure Source Blood Pressure Source [Right Arm] Automatic Cuff Blood Pressure Position Blood Pressure Position [Right Arm] Sitting 02 Sat by Pulse Oximetry 97 98 99 Oxygen Delivery Method Room Air 12/01/24 16:01 12/01/24 17:02 Temperature 98.6 F Temperature Source Oral Pulse Rate 89 80 Pulse Rate [Right Brachial] Respiratory Rate 14 Blood Pressure 157/86 H 173/89 H Blood Pressure [Right Arm] Blood Pressure Mean [Right Arm] Blood Pressure Source Automatic Cuff Blood Pressure Source [Right Arm] Blood Pressure Position Supine Blood Pressure Position [Right Arm] 02 Sat by Pulse Oximetry 98 Oxygen Delivery Method Room Air Lab Data Lab Results 12/01/24 13:29: WBC 6.5, RBC 4.63, Hgb 13.0, Hct 39.6, MCV 85.5, MCH 28.1, MCHC 32.8, RDW 13.6, Plt Count 358, MPV 10.2, Neut % (Auto) 63.0, Lymph % (Auto) 22.7, Pocahontas % (Auto) 10.5 H, Eos % (Auto) 2.5, Baso % (Auto) 0.8, Neut # (Auto) 4.1, Lymph # (Auto) 1.5, [place]oc[place]ont[place] # (Auto) 0.7, Eos # (Auto) 0.2, Baso # (Auto) 0.1, ESR 21, Sodium 138, Potassium 4.5, Chloride 107, Carbon Dioxide 26, Anion Gap 9.5, BUN 11, Creatinine 1.00, Estimated Creat Clear 68, Estimated GFR 54 L, Est GFR ( Amer) 65, Glucose 107 H, Lactate 1.3, Calcium 9.1, Magnesium 2.3, Total Bilirubin 0.7, AST 34, ALT 14, Alkaline Phosphatase 96, Troponin I < 0.01, C-Reactive Protein 77.4 H, Total Protein 6.7, Albumin 3.8, Globulin 2.9, Albumin/Globulin Ratio 1.3 12/01/24 16:21: Troponin I < 0.01 Orders (Tests/Meds): ED MEDICATIONS Discontinued Medications Generic Name Dose Route Start Last Admin Trade Name Freq PRN Reason Stop Dose Admin Iopamidol 75 ml 12/01/24 14:50 12/01/24 14:51 Iopamidol-370 (76%);100ml Bottle IV 12/01/24 14:51 75 ml ONCE ONE Administration Sodium Chloride 10 ml 12/01/24 14:50 12/01/24 14:51 Sodium Chloride 0.9% 10ml Syr (Rad Only) IV 12/01/24 14:51 10 ml ONCE ONE Administration ORDERS Category Date Time Status CT chest w con Stat Cat Scan 12/01/24 13:13 Completed POCUS Point of Care (ER Only) Stat Exams 12/01/24 14:58 Completed CBC [Complete Blood Count Auto Diff] Stat Lab 12/01/24 13:29 Completed CRP [C-Reactive Protein] Stat Lab 12/01/24 13:29 Completed Comprehensive Metabolic Panel Stat Lab 12/01/24 13:29 Completed Erythrocyte Sedimentation Rate Stat Lab 12/01/24 13:29 Completed Lactic Acid Stat Lab 12/01/24 13:29 Completed Magnesium Stat Lab 12/01/24 13:29 Completed Trop I [Troponin I] Stat Lab 12/01/24 13:29 Completed Troponin I Q3H Lab 12/01/24 16:21 Completed Blood Culture Stat Micro 12/01/24 13:44 Received Medical Decision Narrative: patient is a 78-year-old female presenting to the emergency department for evaluation of abscess versus mass of left breast that is draining for 2 days. This has been there for 2 weeks. Patient is hemodynamically stable and nontoxic-appearing upon arrival, afebrile. Differential diagnosis includes abscess versus mass. Workup will be conducted with hematologic labs, specific imaging including CT with contrast of chest. Initial inventions include labs. Initial workup reviewed by me [hematologic labs are remarkable for elevated inflammatory markers. We tried to order a formal ultrasound but were unable to get one. We were told that patient had to have a mammogram prior to having an ultrasound here. Dr. Dominguez did a bedside POCUS and saw a small amount of fluid. We will place patient on antibiotics and send patient to breast center for outpatient care. This could be an abscess or breast cancer. I am still waiting for formal imaging report before I discharge patient. Patient's CT scan of chest showed several lung nodules that are suspicious for malignancy. I discussed this with the patient and will give her Dr. Ansari number to follow-up for bronchoscopy. Will also give her [facility] comprehensive breast cares #2 follow-up with them for the breast mass. See the formal imaging report for full report. Upon repeat evaluation patient's pain is improved, appears better perfused, appears the same, appears worse. Due to this patient will be discharged with follow-up with pulmonology and comprehensive breast care. I was consulted by the TIANA, and we discussed the complexity of the problems being addressed. I approve the treatment and management plan for this patient's care in the emergency department, thus performing a substantive portion of the medical decision making. At the time that I handed off to oncoming physician, Dr. Rivera, patient's CT imaging was pending. I personally performed a breast ultrasound that showed heterogenous material in the left lateral breast. No apparent fluid collection. There is a mild amount of fluid near the surface of the skin that appears to be draining. See procedure note for details. Peewee Dominguez MD Procedures <Peewee Dominguez MD - Last Filed: 12/02/24 13:28> Limited Ultrasound Interpretation:: Limited MSK/soft tissue ultrasound Indication: Soft tissue swelling, redness Identified structures: Location: Left lateral breast Findings: No abscess, heterogenous tissue within the breast. Small amount of draining fluid near the surface of the skin Impression: Heterogenous tissue but no abscess Images were saved to permanent archive The study was technically adequate Soft Tissue CPT Codes: CPT Breast: 13005-46-XT/LT (complete), 82619-38-EX/LT (limited), This study was performed by me, and I personally interpreted all images/videos. Based on my clinical judgement, these images were adequate and did not necessitate further imaging. Critical Care <Peewee Dominguez MD - Last Filed: 12/02/24 13:28> Critical Care Time Critical Care Time: No
[2024-12-01 13:55] LABS: Hematocrit 39.6 % (37.0-47.0); Hemoglobin 13.0 g/dL (12.2-16.2); Immature Granulocytes % 0.5 %; Mean Corpuscular HGB Conc 32.8 g/dL (31.8-35.4); Mean Corpuscular Hemoglobin 28.1 pg (27.0-31.2); Mean Corpuscular Volume 85.5 fl (81-99); Nucleated Red Blood Cells % 0 %; Platelet Count 358 K/mm3 (142-424); Red Blood Count 4.63 M/mm3 (4.20-5.40); Red Cell Distribution Width-SD 42.5 fL; White Blood Count 6.5 K/mm3 (4.8-10.8)
[2024-12-01 14:33] LABS: Alanine Aminotransferase 14 U/L (12-78); Albumin Level 3.8 g/dl (3.5-5.0); Albumin/Globulin Ratio 1.3 (1.1-1.8); Alkaline Phosphatase 96 U/L (38-126); Anion Gap 9.5 mEq/L (5-15); Aspartate Amino Transferase 34 U/L (14-36); Bilirubin,Total 0.7 mg/dl (0.2-1.3); Blood Urea Nitrogen 11 mg/dl (7-17); Calcium 9.1 mg/dl (8.4-10.2); Carbon Dioxide 26 mmol/L (22.0-30.0); Chloride 107 mmol/L (98-107); Creatinine Clearance Estimated 68 mL/min (50-200); Creatinine,Serum 1.00 mg/dl (0.52-1.04); Estimated Glomerular Filt Rate 54 ml/min (>60); GFR (African American) 65 ML/MIN (>60); Globulin 2.9 g/dL (1.3-3.2); Glucose 107 mg/dl (74-100); Magnesium 2.3 mg/dl (1.6-2.3); Potassium 4.5 mmoL/L (3.5-5.1); Sodium 138 mmol/L (136-145); Total Protein,Serum 6.7 g/dl (6.3-8.2)
[2024-12-01 14:38] LABS: C-Reactive Protein 77.4 mg/L (0-4)
[2024-12-01 14:50] LABS: Troponin I < 0.01 ng/ml (0.00-0.034)
[2024-12-01] MEDS: SODIUM CHLORIDE 0.9% 10ML SYR (RAD ONLY) 10 ML IV (14:51)
[2024-12-01] MEDS: IOPAMIDOL-370 (76%);100ML BOTTLE 75 ML IV (14:51)
[2024-12-01 15:04] VITALS: BP 183/82; PULSE 94; O2SAT 98
[2024-12-01 15:30] VITALS: BP 144/77; PULSE 90; O2SAT 99
--- NOTE | 2024-12-01 15:48 | PC.NURSE ---
Spoke with Radiology. Radiology reported that the breast ultrasound was an out patient procedure and the pt would need to have a out patient mammogram before having the breast ultrasound done. Notified .
[2024-12-01 16:01] VITALS: BP 157/86; PULSE 89; O2SAT 98
--- NOTE | 2024-12-01 16:39 | PC.NURSE ---
chapo collected and sent to lab.
[2024-12-01 17:02] VITALS: BP 173/89; PULSE 80; RESP 14; TEMP 37; O2SAT 98
[2024-12-01 17:11] LABS: Troponin I < 0.01 ng/ml (0.00-0.034)
--- NOTE | 2024-12-01 17:14 | PC.NURSE ---
ABD pad applied to wound to left breast. Patient given extra supplies to take home for dressing changes.
[2024-12-06 00:22] LABS: Acinetobacter calcoaceticus-ba Not Detected; Bacteroides fragilis Not Detected; Candida auris Not Detected; Candida glabrata Not Detected; Enterobacterales Not Detected; Enterococcus faecalis Not Detected; Enterococcus faecium Not Detected; Klebsiella aerogenes Not Detected; Klebsiella pneumoniae grp Not Detected; Proteus spp. Not Detected; Salmonella spp. Not Detected; Serratia marcescens Not Detected; Staphylococcus epidermidis Not Detected; Staphylococcus lugdunensis Not Detected; Staphylococcus spp. Not Detected; Stenotrophomonas maltophilia Not Detected; Streptococcus agalactiae(GrpB) Not Detected; Streptococcus pyogenes Group A Not Detected; Streptococcus spp. Not Detected
== END 2024-12-01 17:14 | disposition home or self-care (01) ==
PROVIDERS: Nurse Practitioner; Emergency Provider Student in an Organized Health Care Education/Training Program; PCP Family Medicine
DX: N61.1 Abscess of the breast and nipple (principal); R91.1 Solitary pulmonary nodule; N63.0 Unspecified lump in unspecified breast; F17.210 Nicotine dependence, cigarettes, uncomplicated
CPT/HCPCS: 71260; 80053; 83605; 83735; 84484; 85025; 85651; 86140; 87040; 87154; 99285; Q9967

== ENCOUNTER 2024-12-16 10:16 | Outpatient (CLI) | payer MEDICARE, OTHER, SELFPAY ==
--- OUTSIDE RECORDS SUMMARY | 2024-12-16 10:17 | XMS_ITS | Continuity of Care Document ---
Author Name [facility] Organization [facility] Care Team Providers Care Cyber Security Manager Name Role Phone [facility] Unavailable Unavailable Immunizations Combined list of available immunizations from the Department of Defense and Veterans Affairs facilities. Immunization Series Date Given Administered By Site Reaction Lot Number CVX Code Drug Drama Critic Status Comments Source COVID-19, mRNA, LNP-S, PF, 30 mcg/0.3 mL dose 2020 Protenus [place] (PFR) Not Given COVID-19, mRNA, LNP-S, PF, 30 mcg/0.3 mL dose [facility] Influenza, high dose seasonal 2018 [place] () Not Given Influenza , high dose seasonal DoD Social History Combined list of available smoking, tobacco, and other social history from Department of Defense and Veterans Affairs facilities. Social History Type Response Date Comment Sour e This section is an empty social history section. DoD
--- OUTSIDE RECORDS SUMMARY | 2024-12-16 10:21 | XMS_ITS | Clinical Summary ---
Author Organization [facility] Address [address] [place] [address] Care Team Providers Care Construction Helper Name Role Phone Unavailable Primary Care Provider [...]
--- OUTSIDE RECORDS SUMMARY | 2024-12-16 10:21 | XMS_ITS | Clinical Summary ---
Author Organization [facility] Address [address] [place] [address] Care Team Providers Care Route Deliverer Name Role Phone Quinten Anderson MD Primary Care Provider [phone] Social History Tobacco Use Types Packs/Day Years [...] or (1 - 1-dose 75+ series) 2021 [id number] Vaccine ( season) 2023 04/08/2021, 07/07/2020 UKY-Influenza [...] age to complete this topic Insurance MEDICARE [facility] Care Teams Route Deliverer Relationship Specialty Start Date End Date Quinten Anderson MD [address] [place] [address] [address]1 [address]1 [place] [id number] PCP - General 09/10/20
--- OUTSIDE RECORDS SUMMARY | 2024-12-16 10:21 | XMS_ITS | Encounter Summary ---
Author Organization [facility] Address [address] [place] [address] Care Team Providers Care Stripe Matcher Name Role Phone Quinten Anderson MD Primary Care Provider [phone] Encounter Details Date Type Department Care Team (Late st Contact Info) Description 12/15/2022 Orders Only External Location [address] [place] [address] Marty Hargrove MD [address] [place] [address] [address] [place] [address] Social History Tobacco Use Types Packs/Day Years [...] on filedocumented in this encounter Care Teams Stripe Matcher Relationship Specialty Start Date End Date Quinten Anderson MD [address] [facility] [address] [place] [address] PCP - General 09/10/20 documented as of this encounter
[2024-12-16 10:23] VITALS: BMI 33.9
== END 2024-12-16 23:59 | disposition home or self-care (01) ==
LOC: PREOP 10:17
PROVIDERS: PCP Family Medicine; Visit Provider Internal Medicine Pulmonary Disease
DX: R69 Illness, unspecified (principal)

== ENCOUNTER → 2024-12-19 06:06 | Day surgery (SDC) | payer MEDICARE, OTHER, SELFPAY ==
[2024-12-16 13:01] VITALS: BMI 33.9
[2024-12-19] VITALS (11 sets, daily range): BP systolic 95–157; BP diastolic 57–79; PULSE 85–98; RESP 18–24; TEMP 36.2–36.6; O2SAT 92–98; BMI 33.9
[2024-12-19] MEDS: LACTATED RINGERS 1000ML 1,000 ML 25 ML IV (06:50)
--- NOTE | 2024-12-19 06:56 | CT_ITS ---
FINAL REPORT TECHNIQUE: Axial images were obtained through the chest without contrast. These are extremely thin section imaging that was obtained for navigation during bronchoscopy. This study was performed with techniques to keep radiation doses as low as reasonably achievable (ALARA). Individualized dose reduction techniques using automated exposure control or adjustment of mA and/or kV according to the patient's size were employed. CLINICAL HISTORY: NAVIGATIONAL SCAN FOR BRONCH COMPARISON: Prior CT of the chest 12/01/2024 FINDINGS: CT CHEST FOR NAVIGATION DURING BRONCHOSCOPY: Calcifications are noted in the aortic arch. There is slight elevation of the left hemidiaphragm. The prominent subcarinal node noted on the prior CT of 12/01/2024 remains present. There is a dominant left upper lobe focus 1.9 x 1.4 cm in size, also seen on the prior CT. There is a small peripheral left upper lobe nodular opacity measuring 10 mm in size, best seen on image #68 of series 3. There is a 9 mm right lower lobe nodule present, seen on image #101 of series 3. In the right upper lobe, there is a 7 mm nodule best seen on image #71 of series 3, with several adjacent smaller nodules present. IMPRESSION: CT of the chest was performed for navigational purposes during upcoming bronchoscopy. The multiple parenchymal nodules noted on the prior CT of 12/01/2024 remain present. Reviewed, Interpreted and Dictated by Carter Garibay MD Transcribed by Renée Hills Authenticated and [facility]
--- NOTE | 2024-12-19 07:05 | EXP.ANES.CKL ---
[facility] Disclaimer: The information contained in this section may have been updated after the patient was seen, as this information can be updated by other users. Medical History Dyspnea on exertion Pulmonary emphysema Mediastinal lymphadenopathy Smoking greater than 30 pack years Tobacco abuse counseling Tobacco abuse History of lung cancer Renal artery stenosis Femoral artery occlusion Family history of heart disease Tobacco user Leg pain Heart murmur Surgical History History of lung surgery History of total hysterectomy Family History Mother Diabetes Sister Coronary artery disease Social History (Updated 12/19/24 @ 06:24 by Trish Spencer RN) Smoking Status: Former smoker tobacco type: cigarettes packs per day: 1 alcohol intake: never substance use type: denies use current occupational status: retired Travel in the last 8 weeks?: Inside the [place] [facility] Anesthesia Checklist Patient Identification Patient Identification: Arm Band and Family Structural Data Admitted From: Home Planned Operative Procedure/s: Bronchoscopy Consent for Planned Operative Procedure(s) Verified: Yes Verified Documents: Surgical Consent and History and Physical NPO Status Verified Time NPO: 00:00 Additional verifications Patient : No Anesthesia Reactions: No Hx Blood Transfusions: No Blood Transfusion Reaction: No Cephalosporin Allergy: Yes Previous Colonoscopy: No Airway Assessment Mallampati Score:: Class III C-Spine Mobility Assessed: Yes TMJ Mobility Assessed: Yes Dentition: Edentulous Neurological Assessment Level of Consciousness: Awake, Alert, Appropriate and Follows Commands Hx Seizures: No Numbness or tingling in extremities: No Anesthesia Plan Anesthesia Risk discussed: Yes ASA Class: III Anesthesia Type: General Preoperative Comments Pre-Operative Comments: Hard of hearing. Cr 1.0. Limited ROM.
--- NOTE | 2024-12-19 11:49 | XR_ITS ---
FINAL REPORT CLINICAL HISTORY: ION BRONCH WITH BIOPSY 198.19 MGY 12.43 MIN FLUORO FINDINGS: A single fluoroscopic spot film was obtained for bronchoscopy. 12.43 minutes of fluoroscopy time was reported, 198.19 mGy. IMPRESSION: 12.43 minutes of fluoroscopy, 198.19 mGy. Reviewed, Interpreted and Dictated by Carter Garibay MD Transcribed by Alida Gonzalez Authenticated and [facility]
--- NOTE | 2024-12-19 11:55 | XR_ITS ---
FINAL REPORT CLINICAL HISTORY: bronchoscopy COMPARISON: None FINDINGS: PORTABLE CHEST: The heart size is normal. There is mild elevation of the left hemidiaphragm. Surgical clips are present in the left hilum. The mediastinum is normal. There are coarse interstitial opacities noted bilaterally, that are likely chronic. There are no pleural effusions. There is no pneumothorax. There is no osseous abnormality. IMPRESSION: Coarse interstitial opacities, likely chronic. Surgical clips are present in the left hilum. Reviewed, Interpreted and Dictated by Carter Garibay MD Transcribed by Renée Hills Authenticated and [facility]
--- NOTE | 2024-12-19 11:56 | P.PNANES_ITS ---
[facility] Anesthesia Record Part I Anesthesia Record I Intake, IV Amount: 1,900 Hydration: Adequate Estimated blood loss (mL): 0 Urine output (mL): 0 Blood Pressure: 112/63 SaO2: 94 Pulse Rate: 97 Airway Patency: Patent Respiratory Rate: 24 Temperature: 97.1 F Patient is:: Drowsy and Stable Stable to PACU at:: 11:45
--- NOTE | 2024-12-19 12:41 | EXP.ANES.II ---
[facility] Anesthesia Record Part II Anesthesia Record Part II Discharge Time: 12:15 Destination: Surgical Day Care (OP Surgery) PACU nurse assessment reviewed?: Yes Patient Condition:: Good Anesthesia Complications:: None Swallowing reflex intact?: Yes Airway Patency: Patent Cyanosis?: No Blood Pressure: 119/71 SaO2: 96 Respiratory Rate: 18 Pulse Rate: 95 Temperature: 97.1 F Mental Status: Alert & Oriented Pain level:: 0 Nausea and/or vomitting:: None Intake, IV Amount: 0 Hydration: Adequate
--- NOTE | 2024-12-19 13:47 | EXP.BRONCH.N ---
Procedure: Date: 12/19/24 Patient Date of :: 1945 Procedure Performed:: Bronchoscopy airway examination, Ion robotic associated transbronchial needle, endobronchial ultrasound-guided fine-needle aspiration of lymph nodes Indications:: Lung nodule and adenoapthy Performing Provider:: Pascual Allred MD Referring Provider:: Dr. Anderson Sedation:: General anesthesia Procedure:: Bronchoscopy airway examination, Ion robotic associated transbronchial needle, endobronchial ultrasound-guided fine-needle aspiration of lymph nodes: A clean diagnostic bronchoscopy was advanced to the ET tube and airway examination was performed. Airways appeared grossly normal, no evidence of mucoid secretions, mucous plugging active bleeding/old blood clots noted. Moderate amount of secretions were noted. Diagnostic bronchoscopy was retracted, and Robotic Ion bronchoscopy was introduced through the ET tube. Patient images were previously uploaded into the ION Plan point software. 3 targets were recorded, the dominant left upper lobe apical large lesion, the left upper lobe more laterally 10 mm lesion on the left hilar lesion. The three target nodule sampling was planned, and the pathway was mapped. Following airway examination, airway registration was performed using shape sensing robot assisted bronchoscopy (SSRAB). We were 5 mm from the near edge of the dominant nodule in the left upper lobe. Under fluoroscopy guidance the samples were taken. A flexion 21 needle was used to perform FNA of the dominant DELFINA Lung nodule. A total of 3 passes were made. The navigational bronchoscopy was retracted to the main nargis and then advanced to locate the left upper lobe peripheral 10 mm lung nodule. However no ideal location was obtained 2.1 confirm the location of this lung nodule. No biopsies were performed. The navigational bronchoscopy was retracted the main nargis again and then advanced to find a left hilar nodular opacity. A flexion 21 needle was used to perform FNA of this Lung nodule. A total of 4 passes were made. No bronchioloalveolar lavage/brush/forceps transbronchial biopsies were performed. Ion robotic bronchoscopy was retracted and EBUS bronchoscope was introduced for lymph node surveillance. Five passes were taken using 21 gauge needing at lymph node stations 4r and Station 7. Resultant lymph node FNA sample were labelled separately for each lymph node station and were sent in CytoLyt for cytopathologic examination. 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 Confirmed tissue samples from the FNA of the lung nodules Findings:: Please see the procedure note Recommendations:: Postoperative bronchoscopy instructions Follow in pulmonary clinic in 5-7 Complications:: No acute immediate complication Estimated blood obtained (mL): 5
== END | disposition home or self-care (01) ==
PROVIDERS: PCP Family Medicine; Visit Provider Internal Medicine Pulmonary Disease
PROC: (CPT 31627; principal; 2024-12-19 07:30)
DX: C34.12 Malignant neoplasm of upper lobe, left bronchus or lung (principal); F17.210 Nicotine dependence, cigarettes, uncomplicated; J43.9 Emphysema, unspecified; Z85.118 Personal history of other malignant neoplasm of bronchus and lung
CPT/HCPCS: 31627; 31629; 31652; 71045; 71250; 76000; 88173; 88305; 88341; 88342; J1100; J2003; J2250; J2371; J2405; J2704; J7120

== ENCOUNTER 2025-01-08 08:29 | Outpatient (CLI) | payer MEDICARE, OTHER, SELFPAY ==
--- OUTSIDE RECORDS SUMMARY | 2025-01-06 10:00 | XMS_ITS | Encounter Summary ---
Author Organization [facility] Address [address] [place] [address] Care Team Providers Care Parts Sales Associate Name Role Phone Quinten Anderson MD Primary Care Provider [phone] Encounter Details Date Type Department Care Team (Latest Contact Info) Description 01/06/2025 10:00 AM EDT - 01/06/2025 10:59 AM EDT Hospital Encounter PAV [address] [address] Abnormal findings on diagnostic imaging of breast [...] Care Team (Late st Contact Info) Description 01/15/2025 3:00 PM EDT Appointment PAV [address] [address] documented as of this encounter Procedures Procedure Name Priority Date/Time Associated Diagnosis Comments MAMMOGRAPHY BREAST DIAGNOSTIC TOMOSYNTHESIS BILATERAL Routine 01/06/2025 10:55 AM EDT Abnormal findings on diagnostic imaging of breast documented in this encounter Results * (ABNORMAL) Mammography Breast Diagnostic Tomosynthesis Bilateral (01/06/2025 10:55 AM EDT) Anatomical Region Laterality Modality Breast Bilateral Mammography, [facility] er Impressions 01/06/2025 3:17 PM EDT Right [...] presents following [facility] TECHNIQUE: Bilateral diagnostic mammogram was [...] breast documented in this encounter Care Teams Parts Sales Associate Relationship Specialty Start Date End Date Quinten Anderson MD [address] [place] [address] [address]1 [address]1 [place] [id number] PCP - General 09/10/20 documented as of this encounter
--- OUTSIDE RECORDS SUMMARY | 2025-01-06 11:00 | XMS_ITS | Encounter Summary ---
Author Organization [facility] Address [address] [place] [address] Care Team Providers Care Mitten Sewer Name Role Phone Quinten Anderson MD Primary Care Provider [phone] Encounter Details Date Type Department Care Team (Latest Contact Info) Description 01/06/2025 11:00 AM EDT - 01/06/2025 1:14 PM EDT Hospital Encounter PAV [address] [place] [address] Abnormal findings on diagnostic imaging [...] Description 01/15/2025 3:00 PM EDT Appointment PAV [address] [place] [address] documented as of this encounter [...] presents following [facility] TECHNIQUE: Bilateral diagnostic mammogram was [...] breast documented in this encounter Care Teams Mitten Sewer Relationship Specialty Start Date End Date Quinten Anderson MD [address] [place] [address] #1 #1 [place] [address] PCP - General 09/10/20 documented as of this encounter
--- OUTSIDE RECORDS SUMMARY | 2025-01-06 13:15 | XMS_ITS | Encounter Summary ---
Author Organization [facility] Address [address] [place] [address] Care Team Providers Care Alarm Signal Operator Name Role Phone Quinten Anderson MD Primary Care Provider [phone] Reason for Visit * Imaging (Routine) - Pending Review Specialty Diagnoses / Procedures Referred By Contac t Referred To Contact Radiology Diagnoses Abnormal findings on diagnostic imaging of breast Procedures US Axilla Right Quinten Anderson MD [address] [place] [address] #1 #1 [place] [phone] Phone: tel: fax: Referral ID Status Reason Start Date Expiration Date V isits Requested Visits Authorized [id number] Pending Review 01/06/2025 07/08/2026 1 1 Encounter Details Date Type Department Care Team (Latest Contact Info) Description 01/06/2025 1:15 PM EDT - 01/06/2025 11:59 PM EDT Hospital Encounter PAV Breast [facility] [address] [address] Abnormal findings on diagnostic imaging of breast [...] Description 01/15/2025 3:00 PM EDT Appointment [facility] [place] [address] [address] [address] documented as of this encounter Procedures Procedure [...] presents following partially [facility] TECHNIQUE: Bilateral diagnostic mammogram [...] breast documented in this encounter Care Teams Alarm Signal Operator Relationship Specialty Start Date End Date Quinten Anderson MD [address] [place] [address] #1 #1 [place] [address] PCP - General 09/10/20 documented as of this encounter
--- NOTE | 2025-01-08 08:30 | MR_ITS ---
FINAL REPORT TECHNIQUE: Multiplanar and multisequence imaging of the brain was obtained before and after contrast administration. CLINICAL HISTORY: New diagnosis of lung Cancer, eval for mets FINDINGS: Brain parenchymal: There is no mass effect or midline shift. There are mild periventricular white matter changes. T2 abnormality in the central carolyn is noted. The cerebellum and brainstem are without acute abnormality. Ventricles: The ventricles are symmetric in size and configuration without hydrocephalus. Extra-axial spaces: No extra-axial fluid collections. Diffusion imaging: No areas of restricted diffusion to suggest acute infarct. Flow voids: Flow voids within the major intracranial vessels are preserved. Soft tissues: Soft tissues are without acute abnormality. Post contrast imaging: No abnormal enhancement. IMPRESSION: White matter changes, likely related to chronic small vessel ischemia. Reviewed, Interpreted and Dictated by Hope Medina MD Transcribed by Korin Sanchez Authenticated and [facility]
--- OUTSIDE RECORDS SUMMARY | 2025-01-08 08:48 | XMS_ITS | Encounter Summary ---
Author Organization Healthcare Address [address] [place] [address] Care Team Providers Care Refrigerating Oiler Name Role Phone Quinten Anderson MD Primary Care Provider [phone] Encounter Details Date Type Department Care Team (Late st Contact Info) Description 12/01/2024 Orders Only External Location [address] [place] [address] Provider, External Social History Tobacco Use Types Packs/Day Years [...] Info) Description 01/15/2025 3:00 PM EDT Appointment [facility] [address] [address] documented as of this encounter Procedures Procedure Name Priority Date/Time Associated Diagnosis Comments CT THORACIC OUTSIDE IMAGES 12/01/2024 2:49 PM EDT documented in this encounter Results * CT THORACIC OUTSIDE IMAGES (12/01/2024 2:49 PM EDT) Anatomical Region Laterality Modality Computed Tomogra phy 12/01/2024 2:49 PM EDT us External Provider IMG CT PROCEDURES Final Result documented in this encounter Visit Diagnoses Not on filedocumented in this encounter Care Teams Refrigerating Oiler Relationship Specialty Start Date End Date Quinten Anderson MD [address] [place] [address] #1 #1 [place] [address] PCP - General 09/10/20 documented as of this encounter
--- OUTSIDE RECORDS SUMMARY | 2025-01-08 08:48 | XMS_ITS | Encounter Summary ---
Author Organization [facility] Address [address] [place] [address] Care Team Providers Care Vacuum Closing Machine Operator Name Role Phone Quinten Anderson MD Primary Care Provider [phone] Encounter Details Date Type Department Care Team (Late st Contact Info) Description 01/07/2025 Telephone PAV [address] [address] Liudmila Bravo, RN Social History Tobacco Use Types Packs/Day Years Used Date Smoking Tobacco: Unknown Comments No Sex and Gender Information Value Date Recorded Sex Assigned at Not on file Legal Sex Female 8:19 PM EDT Gender Identity Not on file Sexual Orientation Not on file documented as of this encounter Miscellaneous Notes * Telephone Encounter - Juanita Puentes - 01/07/2025 2:09 PM EDT Patient called wanting to hemanth biopsy. Please return call [phone]. States can call to hemanth w daughter or sone as well documented in this encounter Plan of Treatment Upcoming Encounters Date Type Department Care Team (Late st Contact Info) Description 01/15/2025 3:00 PM EDT Appointment PAV [facility] Breast [address] [address] documented as of this encounter Visit Diagnoses Not on filedocumented in this encounter Care Teams Vacuum Closing Machine Operator Relationship Specialty Start Date End Date Quinten Anderson MD [address] [place] [address] #1 #1 [place] [address] PCP - General 09/10/20 documented as of this encounter
--- OUTSIDE RECORDS SUMMARY | 2025-01-08 08:48 | XMS_ITS | Encounter Summary ---
Author Organization Healthcare Address [address] [place] [address] Care Team Providers Care Display Carver Name Role Phone Quinten Anderson MD Primary Care Provider [phone] Encounter Details Date Type Department Care Team (Latest Contact Info) Description 01/06/2025 Travel Social History Tobacco Use Types Packs/Day Years [...] Info) Description 01/15/2025 3:00 PM EDT Appointment [facility] Breast Care [facility] [address] [address] documented as of this encounter Visit Diagnoses Not on filedocumented in this encounter Care Teams Display Carver Relationship Specialty Start Date End Date Quinten Anderson MD [address] [place] [address] St [address]1 #1 [place] [address] PCP - General 09/10/20 documented as of this encounter
--- OUTSIDE RECORDS SUMMARY | 2025-01-08 08:48 | XMS_ITS | Clinical Summary ---
Author Organization [facility] Address [address] [place] [address] Care Team Providers Care Silk Presser Name Role Phone Quinten Anderson MD Primary Care Provider [phone] Allergies Active Allergy Reactions Criticality Noted Date Comments Penicillins Hives Medium 01/07/2025 Medications No known medications Encounters Date Type Department Care Team Description 01/07/2025 Orders Only PAV [facility] 234 [facility] [address] [place] [address] Liudmila Bravo, RN 01/07/2025 Telephone PAV [facility] 234 [facility] [address] [place] [address] Liudmila Bravo, RN 01/07/2025 Telephone PAV [facility] 234 [facility] [address] [place] [address] Liudmila Bravo, RN 01/06/2025 1:15 PM EDT - 01/06/2025 11:59 PM EDT Hospital Encounter PAV [facility] 234 [facility] [address] [place] [address] Abnormal findings on diagnostic imaging of breast Discharge Disposition: Home or Self Care 01/06/2025 11:00 AM EDT - 01/06/2025 1:14 PM EDT Hospital Encounter PAV [facility] [address] [facility] [address] [place] [address] Abnormal findings on diagnostic imaging of breast Discharge Disposition: Home or Self Care 01/06/2025 10:00 AM EDT - 01/06/2025 10:59 AM EDT Hospital Encounter PAV [facility] [address] [facility] [address] [place] [address] Abnormal findings on diagnostic imaging of breast Discharge Disposition: Home or Self Care 01/06/2025 Travel 12/22/2024 Telephone PAV [facility] [address] [facility] [address] [place] [address] Emily Pruitt 12/19/2024 Orders Only External Location [address] [place] [address] Provider, External 12/01/2024 Orders Only External Location [address] [place] [address] Provider, External from Last 3 Months Family History Medical History Relation Name Comments Ovarian cancer Sister Relation Name Status Comments Sister Social History Tobacco Use Types Packs/Day Years [...] 11/10/2022 2:39 PM EDT Plan of Treatment Upcoming Encounters Date Type Department Care Team (Late st Contact Info) Description 01/15/2025 3:00 PM EDT Appointment PAV [facility] [address] [address] Health Maintenance Due Date Last Done Comments [facility]-Bone Density Scan 1945 [facility]-Depression Screening 1945 [facility]-Hepatitis C Screening 1945 [facility]-Medicare Annual Wellness (AWV) 1945 [facility]-Infant/Child/Adol SDOH Screenings 01/01/1947 [facility]-Obesity Intervention 1952 [facility]- SDOH Screenings 1964 [facility]-Adult SDOH Screenings 1964 [facility]-DTaP,Tdap,and Td Vaccines (1 - Tdap) 1965 [facility]-Pneumococcal Vaccine: 50+ Years (1 of 1 - PCV) 1996 [facility]-Zoster Vaccines (1 of 2) 1996 [facility]-RSV Vaccine: 60+ Years or (1 - 1-dose 75+ series) 2021 [id number] Vaccine (3 - season) 2024 04/08/2021, 07/07/2020 [facility]-Influenza Vaccine (#1) 12/29/202402/08, 03/28/2016 [facility]-Breast Cancer Screening Discontinued 01/06/2025 HPV Vaccines Aged Out No longer eligi [...] on patient's age to complete this topic Procedures Procedure Name Priority Date/Time Associated Diagnosis Comments US BREAST LIMITED LEFT Routine 2:24 PM EDT Abnormal findings on diagnostic imaging of breast US AXILLA RIGHT Routine 01/06/2025 1:35 PM EDT Abnormal findings on diagnostic imaging of breast MAMMOGRAPHY BREAST DIAGNOSTIC TOMOSYNTHESIS BILATERAL Routine 01/06/2025 10:55 AM EDT Abnormal findings on diagnostic imaging of breast CT THORACIC OUTSIDE IMAGES 12/19/2024 7:[address] THORACIC OUTSIDE IMAGES 12/01/2024 2:49 PM EDT from Last 3 Months Results * (ABNORMAL) US Breast Limited Left [...] presents following [facility] TECHNIQUE: Bilateral diagnostic [...] Jeff Rajan MD on 01/06/2025 3:17 PM us Quinten Anderson MD IMG BI PROCEDURES Final Result * (ABNORMAL) US Axilla Right (01/06/2025 1:35 [...] presents following partially [facility] TECHNIQUE: Bilateral diagnostic [...] Anderson MD IMG BI PROCEDURES Final Result * (ABNORMAL) Mammography Breast Diagnostic Tomosynthesis Bilateral [...] presents following partially [facility] TECHNIQUE: Bilateral diagnostic [...] Jeff Rajan MD on 01/06/2025 3:17 PM us Quinten Anderson MD IMG BI PROCEDURES Final Result * CT THORACIC OUTSIDE IMAGES (12/19/2024 7:07 AM EDT) Only the most recent of2 resultswithin the time period is included. Anatomical Region Laterality Modality Computed Tomogra phy 12/19/2024 7:07 AM EDT us External Provider IMG CT PROCEDURES Final Result from Last 3 Months Insurance MEDICARE [facility] Care Teams Silk Presser Relationship Specialty Start Date End Date Quinten Anderson MD [address] [place] [address] #1 #1 [place] [id number] PCP - General 09/10/20
--- OUTSIDE RECORDS SUMMARY | 2025-01-08 08:48 | XMS_ITS | Encounter Summary ---
Author Organization Healthcare Address [address] [place] [address] Care Team Providers Care Support Representative Name Role Phone Quinten Anderson MD Primary Care Provider [phone] Encounter Details Date Type Department Care Team (Late st Contact Info) Description 08/26/2024 Orders Only External Location [address] [place] [phone] Provider, External Social History Tobacco Use Types [...] Info) Description 01/15/2025 3:00 PM EDT Appointment [facility] [address] [phone] documented as of this encounter Procedures Procedure Name Priority Date/Time Associated Diagnosis Comments CT MSK OUTSIDE IMAGES 08/26/2024 2:18 PM EDT documented in this encounter Results * CT MSK OUTSIDE IMAGES (08/26/2024 2:18 PM EDT) Anatomical Region Laterality Modality Computed Tomogra phy 08/26/2024 2:18 PM EDT us External Provider IMG CT PROCEDURES Final Result documented in this encounter Visit Diagnoses Not on filedocumented in this encounter Care Teams Support Representative Relationship Specialty Start Date End Date Quinten Anderson MD [address] [place] [address] [address] [place] [id number] PCP - General 09/10/20 documented as of this encounter
--- OUTSIDE RECORDS SUMMARY | 2025-01-08 08:48 | XMS_ITS | Encounter Summary ---
Author Organization [facility] Address [address] [place] [address] Care Team Providers Care Singing Teacher Name Role Phone Quinten Anderson MD Primary Care Provider [phone] Encounter Details Date Type Department Care Team (Late st Contact Info) Description 01/07/2025 Telephone PAV [facility] [address] [phone] Liudmila Bravo, RN Social History [...] Description 01/15/2025 3:00 PM EDT Appointment [facility] [address] [phone] documented as of this encounter Visit Diagnoses Not on filedocumented in this encounter Care Teams Singing Teacher Relationship Specialty Start Date End Date Quinten Anderson MD [address] [place] [phone] PCP - General 09/10/20 documented as of this encounter
--- OUTSIDE RECORDS SUMMARY | 2025-01-08 08:48 | XMS_ITS | Encounter Summary ---
Author Organization [facility] Address [address] [place] [address] Care Team Providers Care Collator Hand Name Role Phone Quinten Anderson MD Primary Care Provider [phone] Encounter Details Date Type Department Care Team (Late st Contact Info) Description 12/22/2024 Telephone P[facility] [address] [address] [place] [address] Social History Tobacco Use Types Packs/Day Years Used Date Smoking Tobacco: Never Assessed Comments Unknown Sex and Gender Information Value Date Recorded Sex Assigned at Not on file Legal Sex Female 8:19 PM EDT Gender Identity Not on file Sexual Orientation Not on file documented as of this encounter Miscellaneous Notes * Telephone Encounter - Emily Pruitt - 12/22/2024 3:07 PM EDT Telephone Encounter - Appointment Confirmation Date of Contact: 12/22/24 Reason for Call: Second-opinion imaging appointment Summary: Spoke with the patient's daughter in law regarding their upcoming appointment for second-opinion imaging. The patient's daughter in law verbalized understanding and confirmed awareness of the appointment details. An appointment reminder, including the clinic???s location, will be mailed to the patient???s home address. Staff Initials: [facility] documented in this encounter Plan of Treatment Upcoming Encounters Date Type Department Care Team (Late st Contact Info) Description 01/15/2025 3:00 PM EDT Appointment [facility] [address] [phone] documented as of this encounter Visit Diagnoses Not on filedocumented in this encounter Care Teams Collator Hand Relationship Specialty Start Date End Date Quinten Anderson MD [address] [place] [address] [address] [place] [id number] PCP - General 09/10/20 documented as of this encounter
--- OUTSIDE RECORDS SUMMARY | 2025-01-08 08:48 | XMS_ITS | Clinical Summary ---
Author Organization [facility] Address [address] [place] [address] Care Team Providers Care Targeting Acquisition Officer Name Role Phone Unavailable Primary Care Provider [...] - Adults (1 - 1-dose 75+ series) 2 COVID-19 Vaccine (1 - season) 2024 INFLUENZA VACCINE 01/28/2025
--- OUTSIDE RECORDS SUMMARY | 2025-01-08 08:48 | XMS_ITS | Encounter Summary ---
Author Organization Healthcare Address [address] [place] [address] Care Team Providers Care Ammonia Still Operator Name Role Phone Quinten Anderson MD Primary Care Provider [phone] Encounter Details Date Type Department Care Team (Late Contact Info) Description 12/15/2022 Orders Only External Location [address] [place] [address] Marty Hargrove MD [address] [place] [address] [address] [place] [address] Social History Tobacco Use Types Packs/Day Years Used Date Smoking Tobacco: Never Assessed Comments Unknown Sex and Gender Information Value Date Recorded Sex Assigned at Not on file Legal Sex Female 8:19 PM EDT Gender Identity Not on file Sexual Orientation Not on file documented as of this encounter Plan of Treatment Upcoming Encounters Date Type Department Care Team (Late Contact Info) Description 01/15/2025 3:00 PM EDT Appointment [facility] [address] [place] [address] documented as of this encounter Procedures Procedure [...] on filedocumented in this encounter Care Teams Ammonia Still Operator Relationship Specialty Start Date End Date Quinten Anderson MD [address] [place] [address] [address] [place] [id number] PCP - General 09/10/20 documented as of this encounter
--- OUTSIDE RECORDS SUMMARY | 2025-01-08 08:48 | XMS_ITS | Encounter Summary ---
Author Organization [facility] Address [address] [place] [address] Care Team Providers Care Grinder Outside Diameter Name Role Phone Quinten Anderson MD Primary Care Provider [phone] Encounter Details Date Type Department Care Team (Late st Contact Info) Description 01/07/2025 Orders Only PAV [facility] [address] [phone] Liudmila Bravo, RN Social History [...] Description 01/15/2025 3:00 PM EDT Appointment P[facility] [address] [phone] documented as of this encounter Visit Diagnoses Not on filedocumented in this encounter Care Teams Grinder Outside Diameter Relationship Specialty Start Date End Date Quinten Anderson MD [address] [place] [id number] PCP - General 09/10/20 documented as of this encounter
--- OUTSIDE RECORDS SUMMARY | 2025-01-08 08:48 | XMS_ITS | Encounter Summary ---
Author Organization Healthcare Address [address] [place] [address] Care Team Providers Care Microbiology Technologist Name Role Phone Quinten Anderson MD Primary Care Provider [phone] Encounter Details Date Type Department Care Team (Late st Contact Info) Description 12/19/2024 Orders Only External Location [address] [place] [phone] Provider, External Social History Tobacco Use Types [...] Info) Description 01/15/2025 3:00 PM EDT Appointment [facility] [address] [address] documented as of this encounter Procedures Procedure Name Priority Date/Time Associated Diagnosis Comments CT THORACIC OUTSIDE IMAGES 12/19/2024 7:07 AM EDT documented in this encounter Results * CT THORACIC OUTSIDE IMAGES (12/19/2024 7:07 AM EDT) Anatomical Region Laterality Modality Computed Tomogra phy 12/19/2024 7:07 AM EDT us External Provider IMG CT PROCEDURES Final Result documented in this encounter Visit Diagnoses Not on filedocumented in this encounter Care Teams Microbiology Technologist Relationship Specialty Start Date End Date Quinten Anderson MD [address] [place] [address] [address] [place] [id number] PCP - General 09/10/20 documented as of this encounter
[2025-01-08 09:11] LABS: Blood Urea Nitrogen 11 mg/dl (7-17); Creatinine,Serum 0.90 mg/dl (0.52-1.04); Estimated Glomerular Filt Rate 61 ml/min (>60); GFR (African American) 73 ML/MIN (>60)
[2025-01-08] MEDS: SODIUM CHLORIDE 0.9% 10ML SYR (RAD ONLY) 10 ML IV (09:29)
[2025-01-08] MEDS: GADOTERIDOL INJ 20ML SYRINGE 16 ML IV (09:29)
== END 2025-01-08 23:59 | disposition home or self-care (01) ==
LOC: RAD 08:30
PROVIDERS: PCP Family Medicine; Visit Provider Internal Medicine Medical Oncology
DX: C34.90 Malignant neoplasm of unspecified part of unspecified bronchus or lung (principal); R91.1 Solitary pulmonary nodule; R90.82 White matter disease, unspecified
CPT/HCPCS: 36415; 70553; 82565; 84520; A9576

== ENCOUNTER 2025-01-25 11:30 | Emergency (ER) | payer MEDICARE, OTHER, SELFPAY ==
--- OUTSIDE RECORDS SUMMARY | 2025-01-06 10:00 | XMS_ITS | Encounter Summary ---
Author Organization [facility] Address [address] [place] [address] Care Team Providers Care Manager Car Name Role Phone Quinten Anderson MD Primary Care Provider [phone] Encounter Details Date Type Department Care Team (Latest Contact Info) Description 01/06/2025 10:00 AM EDT - 01/06/2025 10:59 AM EDT Hospital Encounter [facility] [address] [place] [address] Abnormal findings on diagnostic imaging of breast [...] Care Team (Late st Contact Info) Description 01/29/2025 11:00 AM EDT Office Visit [facility] [address] [facility] [place] [address] Parish Lou MD [address] [address] documented as of this encounter [...] presents following partially [facility] TECHNIQUE: Bilateral diagnostic mammogram was [...] breast documented in this encounter Care Teams Manager Car Relationship Specialty Start Date End Date Quinten Anderson MD [address] [place] [address] [address]1 [address]1 [place] [id number] PCP - General 09/10/20 documented as of this encounter
--- OUTSIDE RECORDS SUMMARY | 2025-01-06 11:00 | XMS_ITS | Encounter Summary ---
Author Organization Healthcare Address [address] [facility] [place] [address] Care Team Providers Care Automatic Car Wash Attendant Name Role Phone Quinten Anderson MD Primary Care Provider [phone] Encounter Details Date Type Department Care Team (Latest Contact Info) Description 01/06/2025 11:00 AM EDT - 01/06/2025 1:14 PM EDT Hospital Encounter [facility] [place] [address] [address] [facility] [address] [place] [address] Abnormal findings on diagnostic imaging of breast [...] Office Visit PAV [facility] [address] [facility], 2nd [place] [address] Parish Lou MD [address] [facility] [address] [place] [address] documented as of this encounter [...] presents following partially [facility] TECHNIQUE: Bilateral diagnostic mammogram was [...] breast documented in this encounter Care Teams Automatic Car Wash Attendant Relationship Specialty Start Date End Date Quinten Anderson MD [address] [place] [address] #1 [address]1 [place], [place] [address] PCP - General 09/10/20 documented as of this encounter
--- OUTSIDE RECORDS SUMMARY | 2025-01-06 13:15 | XMS_ITS | Encounter Summary ---
Author Organization [facility] Address [address] [place] [address] Care Team Providers Care Wash Operator Name Role Phone Quinten Anderson MD Primary Care Provider [phone] Reason for Visit * Imaging (Routine) - Pending Review Specialty Diagnoses / Procedures Referred By Contac t Referred To Contact Radiology Diagnoses Abnormal findings on diagnostic imaging of breast Procedures US Axilla Right Quinten Anderson MD [address] [place] [address] #1 #1 [place] [phone] Phone: tel: fax: Referral ID Status Reason Start Date Expiration Date V isits Requested Visits Authorized [id number] Pending Review 01/06/2025 07/08/2026 1 1 Encounter Details Date Type Department Care Team (Latest Contact Info) Description 01/06/2025 1:15 PM EDT - 01/06/2025 11:59 PM EDT Hospital Encounter [facility] [address] [address] Abnormal findings on diagnostic imaging of breast [...] Office Visit [facility] [address] [place] [address] Parish Lou MD [address] [place] [address] documented as of this encounter Procedures Procedure [...] presents following partially [facility] TECHNIQUE: Bilateral diagnostic mammogram [...] breast documented in this encounter Care Teams Wash Operator Relationship Specialty Start Date End Date Quinten Anderson MD [address] [place] [address] #1 #1 [place] [address] PCP - General 09/10/20 documented as of this encounter
--- OUTSIDE RECORDS SUMMARY | 2025-01-15 13:51 | XMS_ITS | Encounter Summary ---
Author Organization Healthcare Address [address] [id number] Care Team Providers Care Chisel Trimmer Name Role Phone Quinten Anderson MD Primary Care Provider [phone] Encounter Details Date Type Department Care Team (Latest Contact Info) Description 01/15/2025 1:51 PM EDT - 01/15/2025 2:26 PM EDT Hospital Encounter [facility] Breast Care Center [facility] [address] [address] Abnormal findings on diagnostic imaging of breast [...] Index - - documented in this encounter Miscellaneous Notes * Post-Procedure Note - Nuzhat Nicole, ASIM - 01/15/2025 3:00 PM EDT Patient: Liza [...] Description 01/29/2025 11:00 AM EDT Office Visit [facility] Breast Care Center [address] [facility], 2nd [place] [address] Parish Lou MD [address] [facility] Sari Murry [facility] [address] [place] [address] documented as of this encounter [...] documented in the patient's chart at the [facility]. Drafted by Yee Hernandez MD on 01/22/2025 [...] PM EDT) Case Report Surgical Pathology Case: [id number] Authorizing Provider: Quinten Anderson MD Collected: 01/15/2025 1410 [facility] Received: 01/15/2025 1600 Pathologist: Marianela Ugarte MD Specimen: Breast, Left, Left breast solid mass 2:00-4:00 spans 8 cm 10:50 AM EDT [facility] Final Diagnosis A. 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 - TUMOR INVOLVES SEVEN OF SEVEN CORES (7/7) - SEE BIOMARKER CHECKLIST 10:50 AM EDT [facility] at 1050 EDT Synoptic Checklist [...] Drug Administration (FDA) cleared (test / vendor): [facility] Primary Antibody: SP1 PgR Testing Methodology: PgR Test Type: Food and Drug Administration (FDA) cleared (test / vendor): [facility] Primary Antibody: 1E2 HER2 IHC Testing Methodology: HER2 IHC Test Type: Food and Drug Administration (FDA) cleared (test / vendor): [facility] HER2 IHC Primary Antibody: 4B5 Image Analysis: Not performed 10:50 AM EDT [facility] Clinical Information R92.8 - Abnormal findings on diagnostic imaging of breast [ICD-10-CM] 10:50 AM EDT [facility] Special and Immunohistochemical Stains Special Stain: There are no tasks to display for the given criteria. IHC: A1-4 ER Quantitative (%) A1-5 OR (Progesterone) Quantitative (%) A1-6 HER2/PALMER Quantitative A1-7 HER2 FISH Extra Slide A1-8 HER2 FISH Extra Slide A1-9 HER2 FISH Extra Slide All controls show appropriate reactivity. All immunohistochemist ry, in situ hybridization, and histochemical tests were developed by and are performed at the [facility], [address] [place] [address]. All tests reported here, except those addressing [...] likelihood of false negativity on decalcified specimens. 10:50 AM T [facility] Gross Description A. LEFT BREAST SOLID [...] Cold Time: 1m Pat Austin 10:50 AM T [facility] Intradepartmental Consultation with Agreement This case was seen in consultation with Dr. Chacon, who concurs with the above diagnosis. 10:50 AM T [facility] Note: A resident was involved in the service. I attest I examined the relevant preparations for the specimens and confirmed the diagnosis or interpretation. 10:50 AM EDT [facility] Tissue Left breast structure / Unknown 01/15/2025 2:10 PM EDT 01/15/2025 4:00 PM EDT Quinten Anderson MD LAB PATHOLOGY ORDERABLES Final Result [facility] [address] [place] [address] documented in this encounter Visit Diagnoses Diagnosis [...] Chest documented in this encounter Care Teams Chisel Trimmer Relationship Specialty Start Date End Date Quinten Anderson MD [address] [place] [address] #1 [address]1 [place] [address] PCP - General 09/10/20 documented as of this encounter
--- OUTSIDE RECORDS SUMMARY | 2025-01-15 14:27 | XMS_ITS | Encounter Summary ---
Author Organization Healthcare Address [address] [place] [address] Care Team Providers Care Reuse Technician Name Role Phone Quinten Anderson MD Primary Care Provider [phone] Encounter Details Date Type Department Care Team (Latest Contact Info) Description 01/15/2025 2:27 PM EDT - 01/15/2025 11:59 PM EDT Hospital Encounter [facility] [place] [address] Sari Murry [facility] [address] [place] [address] Abnormal findings on diagnostic imaging [...] Office Visit [facility] [address] [facility], 2nd [place] [address] Parish Lou MD 800 [facility] [address] [place] [address] documented as of this encounter [...] documented in the patient's chart at the [facility]. Drafted by Yee Hernandez [...] breast documented in this encounter Care Teams Reuse Technician Relationship Specialty Start Date End Date Quinten Anderson MD [address] [place] [address] #1 [address]1 [place] [address] PCP - General 09/10/20 documented as of this encounter
[2025-01-25 11:40] VITALS: BP 132/63; PULSE 85; RESP 18; TEMP 36.9; O2SAT 99; BMI 29.4
--- OUTSIDE RECORDS SUMMARY | 2025-01-25 11:46 | XMS_ITS | Encounter Summary ---
Author Organization Healthcare Address [address] [place] [address] Care Team Providers Care Hardware Press Operator Name Role Phone Quinten Anderson MD Primary Care Provider [phone] Encounter Details Date Type Department Care Team (Late Contact Info) Description 12/15/2022 Orders Only External Location 800 [place] [address] Marty Hargrove MD [address] [facility] [address] [place] [address] Social History Tobacco Use Types Packs/Day Years Used Date Smoking Tobacco: Never Assessed Comments Unknown Sex and Gender Information Value Date Recorded Sex Assigned at Not on file Legal Sex Female 8:19 PM EDT Gender Identity Not on file Sexual Orientation Not on file documented as of this encounter Plan of Treatment Upcoming Encounters Date Type Department Care Team (Late Contact Info) Description 01/29/2025 11:00 AM EDT Office Visit [facility] Breast Care Center [address] [facility], 2nd [place] [address] Parish Lou MD [address] [facility] Sari Murry [facility] [address] [place] [address] documented as of this encounter Procedures Procedure Name Priority Date/Time Associated Diagnosis Comments CT ANGIO ABDOMEN 12/15/2022 1:11 PM EDT documented in this encounter Results * CT Angio Abdomen (12/15/2022 1:11 PM EDT) Anatomical Region Laterality Modality Abdomen Computed Tomogra phy 12/15/2022 1:11 PM EDT us Marty Hargrove MD IMG CT PROCEDURES Edited R esult - Final documented in this encounter Visit Diagnoses Not on filedocumented in this encounter Care Teams Hardware Press Operator Relationship Specialty Start Date End Date Quinten Anderson MD [address] [place] [address] #1 #1 [place] [address] PCP - General 09/10/20 documented as of this encounter
--- OUTSIDE RECORDS SUMMARY | 2025-01-25 11:46 | XMS_ITS | Encounter Summary ---
Author Organization Healthcare Address [address] [place] [address] Care Team Providers Care Waste Minimization Technician Name Role Phone Quinten Anderson MD Primary Care Provider [phone] Encounter Details Date Type Department Care Team (Late st Contact Info) Description 12/01/2024 Orders Only External Location 800 [place] [address] Provider, External Social History Tobacco Use Types [...] Description 01/29/2025 11:00 AM EDT Office Visit [facility] Breast Care Center [address] [facility], 2nd [place] [address] Parish Lou MD [address] [facility] Sari Joeson [facility] [address] [place] [address] documented as of this encounter Procedures Procedure Name Priority Date/Time Associated Diagnosis Comments CT THORACIC OUTSIDE IMAGES 12/01/2024 2:49 PM EDT documented in this encounter Results * CT THORACIC OUTSIDE IMAGES (12/01/2024 2:49 PM EDT) Anatomical Region Laterality Modality Computed Tomogra phy 12/01/2024 2:49 PM EDT us External Provider IMG CT PROCEDURES Edited Resul t - Final documented in this encounter Visit Diagnoses Not on filedocumented in this encounter Care Teams Waste Minimization Technician Relationship Specialty Start Date End Date Quinten Anderson MD [address] [place] [address] #1 #1 [place] [address] PCP - General 09/10/20 documented as of this encounter
--- OUTSIDE RECORDS SUMMARY | 2025-01-25 11:46 | XMS_ITS | Encounter Summary ---
Author Organization [facility] Address [address] [place] [address] Care Team Providers Care Call Center Team Leader Name Role Phone Quinten Anderson MD Primary Care Provider [phone] Encounter Details Date Type Department Care Team (Late st Contact Info) Description 01/07/2025 Orders Only [facility] [place] [address] Sari Murry [facility] 800 [place] [address] Liudmila Bravo, RN Social History Tobacco Use [...] Office Visit [facility] Breast [facility] Center [address] [facility], 2nd [place] [address] Parish Lou MD 800 [facility] 134 [place] [address] documented as of this encounter Visit Diagnoses Not on filedocumented in this encounter Care Teams Call Center Team Leader Relationship Specialty Start Date End Date Quinten Anderson MD [address] [facility] #1 #1 [place] [facility] PCP - General 09/10/20 documented as of this encounter
--- OUTSIDE RECORDS SUMMARY | 2025-01-25 11:46 | XMS_ITS | Encounter Summary ---
Author Organization Healthcare Address [address] [place] [address] Care Team Providers Care Wardrobe Attendant Name Role Phone Quinten Anderson MD Primary Care Provider [phone] Encounter Details Date Type Department Care Team (Late st Contact Info) Description 12/19/2024 Orders Only External Location 800 [place] [address] Provider, External Social History Tobacco Use Types [...] Description 01/29/2025 11:00 AM EDT Office Visit [facility] Breast Care Center [address] [facility], 2nd [place] [address] Parish Lou MD [address] [facility] Sari Joeson [facility] 134 [place] [address] documented as of this encounter Procedures Procedure [...] on filedocumented in this encounter Care Teams Wardrobe Attendant Relationship Specialty Start Date End Date Quinten Anderson MD [address] [place] [address] #1 #1 [place] [address] PCP - General 09/10/20 documented as of this encounter
--- OUTSIDE RECORDS SUMMARY | 2025-01-25 11:46 | XMS_ITS | Encounter Summary ---
Author Organization Healthcare Address [address] [place] [address] Care Team Providers Care Admissions Advisor Name Role Phone Quinten Anderson MD Primary Care Provider [phone] Encounter Details Date Type Department Care Team (Late st Contact Info) Description 01/07/2025 Telephone [facility] Breast [facility] Breast Care [address] [place] [address] Liudmila Bravo, RN Social History Tobacco [...] wanting to hemanth biopsy. Please return call [phone]. States can call to hemanth w daughter or sone as well documented in this encounter Plan of Treatment Upcoming Encounters Date Type Department Care Team (Late st Contact Info) Description 01/29/2025 11:00 AM EDT Office Visit [facility] [address] [facility], 2nd [place] [address] Parish Lou MD [address] [address] documented as of this encounter Visit Diagnoses Not on filedocumented in this encounter Care Teams Admissions Advisor Relationship Specialty Start Date End Date Quinten Anderson MD [address] [place] [address] [address]1 [address]1 [place] [address] PCP - General 09/10/20 documented as of this encounter
--- OUTSIDE RECORDS SUMMARY | 2025-01-25 11:46 | XMS_ITS | Encounter Summary ---
Author Organization [facility] Address [address] [place] [address] Care Team Providers Care Procurement Director Name Role Phone Quinten Anderson MD Primary Care Provider [phone] Encounter Details Date Type Department Care Team (Late st Contact Info) Description 01/07/2025 Telephone [facility] [address] [facility] 800 [place] [address] Liudmila Bravo, RN Social History Tobacco Use [...] Office Visit [facility] [address] [facility], 2nd [place] [address] Parish Lou MD 800 [facility] 134 [place] [address] documented as of this encounter Visit Diagnoses Not on filedocumented in this encounter Care Teams Procurement Director Relationship Specialty Start Date End Date Quinten Anderson MD 430 [facility] [address]1 [address]1 [place] [facility] PCP - General 09/10/20 documented as of this encounter
--- OUTSIDE RECORDS SUMMARY | 2025-01-25 11:46 | XMS_ITS | Encounter Summary ---
Author Organization Healthcare Address [address] [place] [address] Care Team Providers Care Bottle Inspector Name Role Phone Quinten Anderson MD Primary Care Provider [phone] Encounter Details Date Type Department Care Team [...] Description 01/29/2025 11:00 AM EDT Office Visit [facility] Breast Care Center [address] [facility], 2nd [place] [address] Parish Lou MD 800 [facility] [address] [place] [address] documented as of this encounter Visit Diagnoses Not on filedocumented in this encounter Care Teams Bottle Inspector Relationship Specialty Start Date End Date Quinten Anderson MD 430 [facility] #1 #1 [place] [address] PCP - General 09/10/20 documented as of this encounter
--- OUTSIDE RECORDS SUMMARY | 2025-01-25 11:47 | XMS_ITS | Encounter Summary ---
Author Organization Healthcare Address [address] [place] [address] Care Team Providers Care Glass Tube Bender Name Role Phone Quinten Anderson MD Primary Care Provider [phone] Encounter Details Date Type Department Care Team (Late st Contact Info) Description 11/22/2022 Orders Only External Location 800 [place] [address] Provider, External Social History Tobacco Use Types [...] Description 01/29/2025 11:00 AM EDT Office Visit [facility] Breast Care Center [address] [facility], 2nd [place] [address] Parish Lou MD 800 [facility] Sari Joeson [facility] 134 [place] [address] documented as of this encounter Procedures Procedure Name Priority Date/Time Associated Diagnosis Comments IR OUTSIDE IMAGES 11/22/2022 12:52 PM EDT documented in this encounter Results * IR OUTSIDE IMAGES (11/22/2022 12:52 PM EDT) Anatomical Region Laterality Modality X-Ray Angiograph y 11/22/2022 12:5 2 PM EDT us External Provider IMG IR PROCEDURES Edited Resul t - Final documented in this encounter Visit Diagnoses Not on filedocumented in this encounter Care Teams Glass Tube Bender Relationship Specialty Start Date End Date Quinten Anderson MD [address] [place] [address] #1 #1 [place] [address] PCP - General 09/10/20 documented as of this encounter
--- OUTSIDE RECORDS SUMMARY | 2025-01-25 11:47 | XMS_ITS | Encounter Summary ---
Author Organization Healthcare Address [address] [place] [address] Care Team Providers Care Social Service Worker Name Role Phone Quinten Anderson MD Primary Care Provider Encounter Details Date Type Department Care Team (Late Contact Info) Description 01/08/2025 Orders Only External Location 800 [place] [address] Provider, External Social History Tobacco Use Types [...] Description 01/29/2025 11:00 AM EDT Office Visit [facility] Breast Care Center [address] [facility], 2nd [place] [address] Parish Lou MD [address] [facility] Sari Lovely [facility] 134 [place] [address] documented as of this encounter Procedures Procedure Name Priority Date/Time Associated Diagnosis Comments MR NEURO OUTSIDE IMAGES 01/08/2025 8:48 AM EDT documented in this encounter Results * MR NEURO OUTSIDE IMAGES (01/08/2025 8:48 AM EDT) Anatomical Region Laterality Modality Magnetic Resonan ce 01/08/2025 8:48 AM EDT us External Provider IMG MRI PROCEDURES Edited Resu lt - Final documented in this encounter Visit Diagnoses Not on filedocumented in this encounter Care Teams Social Service Worker Relationship Specialty Start Date End Date Quinten Anderson MD [address] [place] [address] #1 #1 [place] [address] PCP - General 09/10/20 documented as of this encounter
--- OUTSIDE RECORDS SUMMARY | 2025-01-25 11:47 | XMS_ITS | Clinical Summary ---
Author Organization [facility] Address [address] [place] [address] Care Team Providers Care Children'S Ministries Director Name Role Phone Unavailable Primary Care Provider [...] Adults (1 - 1-dose 75+ series) 2 INFLUENZA VACCINE 11/28/2024 COVID-19 Vaccine ( - 2023- season) 2024
--- OUTSIDE RECORDS SUMMARY | 2025-01-25 11:47 | XMS_ITS | Encounter Summary ---
Author Organization Healthcare Address [address] [place] [address] Care Team Providers Care Ornamental Brick Installer Name Role Phone Quinten Anderson MD Primary Care Provider Encounter Details Date Type Department Care Team (Late st Contact Info) Description 12/15/2022 Orders Only External Location [address] [place] [address] Provider, External Social History Tobacco Use Types [...] 11:00 AM EDT Office Visit [facility] Center [address] [facility], 2nd [place] [address] Parish Lou MD [address] [facility] Sari Lovely [facility] [address] [place] [address] documented as of this encounter Procedures Procedure Name Priority Date/Time Associated Diagnosis Comments CT OUTSIDE IMAGES 12/15/2022 1:11 PM EDT documented in this encounter Results * CT OUTSIDE IMAGES (12/15/2022 1:11 PM EDT) Anatomical Region Laterality Modality Computed Tomogra phy 12/15/2022 1:11 PM EDT us External Provider IMG CT PROCEDURES Edited Resul t - Final documented in this encounter Visit Diagnoses Not on filedocumented in this encounter Care Teams Ornamental Brick Installer Relationship Specialty Start Date End Date Quinten Anderson MD [address] [place] [address] [address]1 [place] [id number] PCP - General 09/10/20 documented as of this encounter
--- OUTSIDE RECORDS SUMMARY | 2025-01-25 11:47 | XMS_ITS | Encounter Summary ---
Author Organization Healthcare Address [address] [place] [address] Care Team Providers Care Form Raiser Name Role Phone Quinten Anderson MD Primary Care Provider [phone] Encounter Details Date Type Department Care Team (Late st Contact Info) Description 08/26/2024 Orders Only External Location [address] [place] [address] Provider, External Social History Tobacco Use Types [...] Description 01/29/2025 11:00 AM EDT Office Visit [facility] Breast Care Center [address] [facility], [address]nd [place] [address] Parish Lou MD [address] [facility] Sari Ledezmarickson [facility] [address] [place] [address] documented as of this encounter Procedures Procedure [...] on filedocumented in this encounter Care Teams Form Raiser Relationship Specialty Start Date End Date Quinten Anderson MD [address] [place] [address] [address]1 [place] [id number] PCP - General 09/10/20 documented as of this encounter
--- OUTSIDE RECORDS SUMMARY | 2025-01-25 11:47 | XMS_ITS | Encounter Summary ---
Author Organization Healthcare Address [address] [place] [address] Care Team Providers Care Manager Of Medical Name Role Phone Quinten Anderson MD Primary Care Provider [phone] Encounter Details Date Type Department Care Team (Latest Contact Info) Description 01/15/2025 Travel Social History Tobacco Use Types Packs/Day [...] Description 01/29/2025 11:00 AM EDT Office Visit [facility] Breast Care Center [address] [facility], [address]nd [place] [address] Parish Lou MD [address] [facility] Alexis [address] [place] [address] documented as of this encounter Visit Diagnoses Not on filedocumented in this encounter Care Teams Manager Of Medical Relationship Specialty Start Date End Date Quinten Anderson MD [address] [facility] [address]1 [place] [id number] PCP - General 09/10/20 documented as of this encounter
--- OUTSIDE RECORDS SUMMARY | 2025-01-25 11:47 | XMS_ITS | Encounter Summary ---
Author Organization [facility] Address [address] [place] [address] Care Team Providers Care Intellectual Property Manager Name Role Phone Quinten Anderson MD Primary Care Provider [phone] Encounter Details Date Type Department Care Team (Late st Contact Info) Description 12/22/2024 Telephone [facility] Breast [facility] Center [address] [address] [place] [address] Social History Tobacco Use Types Packs/Day Years [...] Office Visit [facility] [address] [facility], [address] [place] [address] Parish Lou MD [address] [facility] [address] [place] [address] documented as of this encounter Visit Diagnoses Not on filedocumented in this encounter Care Teams Intellectual Property Manager Relationship Specialty Start Date End Date Quinten Anderson MD [address] [facility] [address]1 [place] [address] PCP - General 09/10/20 documented as of this encounter
--- OUTSIDE RECORDS SUMMARY | 2025-01-25 11:47 | XMS_ITS | Encounter Summary ---
Author Organization Healthcare Address [address] [place] [address] Care Team Providers Care Cook Helper Meat Name Role Phone Quinten Anderson MD Primary Care Provider [phone] Encounter Details Date Type Department Care Team (Late st Contact Info) Description 10/11/2022 Orders Only External Location [address] [place] [address] Provider, External Social History Tobacco Use Types [...] 11:00 AM EDT Office Visit [facility] Breast Care Center [address] [facility], 2nd [place] [address] Parish Lou MD [address] [facility] Sari Joeson [facility] [address] [place] [address] documented as of this encounter Procedures Procedure Name Priority Date/Time Associated Diagnosis Comments US OUTSIDE IMAGES 10/11/2022 11:48 AM EDT documented in this encounter Results * US OUTSIDE IMAGES (10/11/2022 11:48 AM EDT) Anatomical Region Laterality Modality Ultrasound 10/11/2022 11:4 8 AM EDT us External Provider IMG US PROCEDURES Edited Resul t - Final documented in this encounter Visit Diagnoses Not on filedocumented in this encounter Care Teams Cook Helper Meat Relationship Specialty Start Date End Date Quinten Anderson MD [address] [place] [address] [address]1 [address]1 [place] [id number] PCP - General 09/10/20 documented as of this encounter
--- OUTSIDE RECORDS SUMMARY | 2025-01-25 11:47 | XMS_ITS | Encounter Summary ---
Author Organization Healthcare Address [address] [place] [address] Care Team Providers Care Car Builder Name Role Phone Quinten Anderson MD Primary Care Provider [phone] Encounter Details Date Type Department Care Team (Late st Contact Info) Description 11/10/2022 Orders Only External Location [address] [place] [address] Provider, External Social History Tobacco Use Types [...] Description 01/29/2025 11:00 AM EDT Office Visit [facility] Breast Care Center [address] [facility], [address]nd [place] [address] Parish Lou MD [address] [facility] Sari Murry [facility] [address] [place] [address] documented as of this encounter Procedures Procedure Name Priority Date/Time Associated Diagnosis Comments US CHEST 11/10/2022 12:55 PM EDT documented in this encounter Results * US Chest (11/10/2022 12:55 PM EDT) Anatomical Region Laterality Modality Chest Ultrasound 11/10/2022 12:5 5 PM EDT us External Provider IMG US PROCEDURES Edited Resul t - Final documented in this encounter Visit Diagnoses Not on filedocumented in this encounter Care Teams Car Builder Relationship Specialty Start Date End Date Quinten Anderson MD [address] [place] [address] [address]1 [place] [address] PCP - General 09/10/20 documented as of this encounter
--- OUTSIDE RECORDS SUMMARY | 2025-01-25 11:47 | XMS_ITS | Encounter Summary ---
Author Organization [facility] Address [address] [place] [address] Care Team Providers Care Musician Instrumental Name Role Phone Quinten Anderson MD Primary Care Provider [phone] Encounter Details Date Type Department Care Team (Late st Contact Info) Description 01/22/2025 Telephone [facility] [address] [facility] [address] [place] [address] Liudmila Bravo, RN Social History Tobacco Use [...] Office Visit [facility] [address] [facility], [address]nd [place] [address] Parish Lou MD [address] [facility] [address] [place] [address] documented as of this encounter Visit Diagnoses Not on filedocumented in this encounter Care Teams Musician Instrumental Relationship Specialty Start Date End Date Quinten Anderson MD [address] [facility] [address]1 [address]1 [place] [facility]31 PCP - General 09/10/20 documented as of this encounter
--- OUTSIDE RECORDS SUMMARY | 2025-01-25 11:47 | XMS_ITS | Clinical Summary ---
Author Organization [facility] Address [address] [place] [address] Care Team Providers Care Crack Off Person Name Role Phone Quinten Anderson MD Primary Care Provider Allergies Active Allergy Reactions Criticality Noted Date Comments Penicillins Hives Medium 01/07/2025 Medications Hospital, Clinic, or Other Facility Administered Medication Ordered Dose Route Frequency Start Date End Date Status sodium bicarbonate 8.4 % injection 2 mEqIndications:Abnor mal findings on diagnostic imaging of breast 2 mEq SC Once 01/15/2025 01/15/2025 Ended lidocaine (Xylocaine) 1 % injection 8 mLIndications:Abnorm al findings on diagnostic imaging of breast 8 mL INFILTRATION Once 01/15/2025 01/15/2025 Ended Encounters Date Type Department Care Team Description 01/22/2025 Telephone [facility] [address] [facility] [address] [place] [address] Liudmila Bravo RN 01/15/2025 2:27 PM EDT - 01/15/2025 11:59 PM EDT Hospital Encounter [facility] [address] [facility] [address] [place] [address] Abnormal findings on diagnostic imaging of breast Discharge Disposition: Home or Self Care 01/15/2025 1:51 PM EDT - 01/15/2025 2:26 PM EDT Hospital Encounter [facility] [address] Murry [facility] [address] [place] [address] Abnormal findings on diagnostic imaging of breast Discharge Disposition: Home or Self Care 01/15/2025 Travel 01/08/2025 Orders Only External Location [address] [place] [address] Provider, External 01/07/2025 Orders Only [facility] [address] Murry [facility] [address] [place] [address] Liudmila Bravo, RN 01/07/2025 Telephone [facility] [address] Mur[address] [facility] [address] [place] [address] Liudmila Bravo, RN 01/07/2025 Telephone [facility] [address] Mur[address] [facility] [address] [place] [address] Liudmila Bravo, RN 01/06/2025 1:15 PM EDT - 01/06/2025 11:59 PM EDT Hospital Encounter [facility] [address] Mur[address] [facility] [address] [place] [address] Abnormal findings on diagnostic imaging of breast Discharge Disposition: Home or Self Care 01/06/2025 11:00 AM EDT - 01/06/2025 1:14 PM EDT Hospital Encounter [facility] [address] Mur[address] [facility] [address] [place] [address] Abnormal findings on diagnostic imaging of breast Discharge Disposition: Home or Self Care 01/06/2025 10:00 AM EDT - 01/06/2025 10:59 AM EDT Hospital Encounter [facility] [address] Mur[address] [facility] [address] [place] [address] Abnormal findings on diagnostic imaging of breast Discharge Disposition: Home or Self Care 01/06/2025 Travel 12/22/2024 Telephone [facility] [address] Mur[address] [facility] [address] [place] [address] Emily Pruitt 12/19/2024 Orders Only External Location [address] [place] [address] Provider, External 12/01/2024 Orders Only External Location [address] [place] [address] Provider, External from Last 3 Months Family [...] EDT Inhaled Oxygen Concentration - - Weight 90.7 kg (200 lb) 11/10/2022 2:39 PM EDT Height 162.6 cm (5' 4 ) 11/10/2022 2:39 PM EDT Body Mass Index 34.33 11/10/2022 2:39 PM EDT Plan of Treatment Upcoming Encounters Date Type Department Care Team ([facility] st Contact Info) Description 01/29/2025 11:00 AM EDT Office Visit [facility] [address] [facility], [address]nd [place] [address] Parish Lou MD [address] [facility] Sari Joeson [facility] Alexis [address] [place] [address] Health Maintenance Due Date Last Done Comments [facility]-Bone Density Scan 1946 [facility]-Depression Screening 1946 [facility]-Hepatitis C Screening 1945 [facility]-Medicare Annual Wellness (AWV) 1945 [facility]-/Child/Adol SDOH Screenings 01/01/1947 [facility]-Obesity Intervention 1952 [facility]- SDOH Screenings 1964 [facility]-Adult SDOH Screenings 1964 [facility]-DTaP,Tdap,and Td Vaccines (1 - Tdap) 1965 [facility]-Pneumococcal Vaccine: 50+ Years (1 of 2 - PCV) 1965 [facility]-Zoster Vaccines (1 of 2) 1965 [facility]-RSV Vaccine: 60+ Years or (1 - 1-dose 75+ series) 2021 [id number] Vaccine (3 - 2024- season) 2024 04/08/2021, 07/07/2020 [facility]-Influenza Vaccine (#1) [...] findings on diagnostic imaging of breast US GUIDED BREAST BIOPSY LEFT Routine 01/15/2025 2:26 PM EDT Abnormal findings on diagnostic imaging of breast SURGICAL PATHOLOGY EXAM Routine 01/15/2025 2:10 PM EDT Abnormal findings on diagnostic imaging of breast MR NEURO OUTSIDE IMAGES 01/08/2025 8:48 AM EDT US BREAST LIMITED LEFT Routine 2:24 PM [...] EDT from Last 3 Months Results * Mammography Breast Post Biopsy Clip [...] documented in the patient's chart at the [facility]. Drafted by Yee [...] Yee Hernandez MD on 01/15/2025 2:45 PM us Quinten Anderson MD IMG BI PROCEDURES Edited Result - Final * US Guided Breast Biopsy Left (01/15/2025 [...] documented in the patient's chart at the [facility] [place]. Drafted by Yee Hernandez MD on 01/22/2025 [...] PM EDT) Case Report Surgical Pathology Case: [id number] Authorizing Provider: Quinten Anderson MD Collected: 01/15/2025 1410 Ordering Location: [facility] Received: 01/15/2025 [address] Pathologist: Marianela Ugarte MD Specimen: Breast, Left, Left breast solid mass 2:00-4:00 spans 8 cm 10:50 AM EDT [facility] Final Diagnosis A. 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 - TUMOR INVOLVES SEVEN OF SEVEN CORES (7/7) - SEE BIOMARKER CHECKLIST 10:50 AM EDT [facility] at 1050 EDT Synoptic [...] Drug Administration (FDA) cleared (test / vendor): [facility] Primary Antibody: SP1 PgR Testing Methodology: PgR Test Type: Food and Drug Administration (FDA) cleared (test / vendor): [facility] Primary Antibody: 1E2 HER2 IHC Testing Methodology: HER2 IHC Test Type: Food and Drug Administration (FDA) cleared (test / vendor): [facility] HER2 IHC Primary Antibody: 4B5 Image Analysis: Not performed 10:50 AM EDT [facility] Clinical Information R92.8 - Abnormal findings on diagnostic imaging of breast [ICD-10-CM] 10:50 AM EDT [facility] Special and Immunohistochemical Stains Special Stain: There are no tasks to display for the given criteria. IHC: A1-4 ER Quantitative (%) A1-5 NC (Progesterone) Quantitative (%) A1-6 HER2/PALMER Quantitative A1-7 HER2 FISH Extra Slide A1-8 HER2 FISH Extra Slide A1-9 HER2 FISH Extra Slide All controls show appropriate reactivity. All immunohistochemist ry, in situ hybridization, and histochemical tests were developed by and are performed at the [facility], [address] [place] [address]. All tests reported here, except those addressing [...] false negativity on decalcified specimens. 10:50 AM EDT [facility] Gross Description A. LEFT BREAST SOLID MASS [...] Time: 1m Pat Austin 10:50 AM EDT [facility] Intradepartmental Consultation with Agreement This case was seen in consultation with Dr. Chacon, who concurs with the above diagnosis. 10:50 AM EDT [facility] Note: A resident was involved in the service. I attest I examined the relevant preparations for the specimens and confirmed the diagnosis or interpretation. 10:50 AM EDT [facility] Tissue Left breast structure / Unknown 01/15/2025 2:10 PM EDT 01/15/2025 4:00 PM EDT us Quinten Anderson MD LAB PATHOLOGY ORDERABLES Final Result [facility] [address] [place] [address] * MR NEURO OUTSIDE IMAGES (01/08/2025 8:48 AM EDT) Anatomical Region Laterality Modality Magnetic Resonan ce 01/08/2025 8:48 AM EDT us External Provider IMG MRI PROCEDURES Edited Resu lt - Final * (ABNORMAL) US Breast Limited Left (01/06/2025 [...] presents following partially [facility] TECHNIQUE: Bilateral diagnostic mammogram was [...] presents following partially [facility] TECHNIQUE: Bilateral diagnostic mammogram was [...] presents following partially [facility] TECHNIQUE: Bilateral diagnostic mammogram was [...] Computed Tomogra phy 12/19/2024 7:07 AM EDT External Provider IMG CT PROCEDURES Edited Resul t - Final from Last 3 Months Insurance MEDICARE [facility] Care Teams Crack Off Person Relationship Specialty Start Date End Date Quinten Anderson MD [address] [place] [address] #1 #1 [place] [id number] PCP - General 09/10/20
--- NOTE | 2025-01-25 12:12 | XR_ITS ---
PROCEDURE INFORMATION: Exam: XR Right Hand Exam date and time: 01/25/2025 12:18 PM Age: 79 years old Clinical indication: Injury or trauma; Other: Nail injury; Laceration; Right; Ring finger; Additional info: 4th finger nail injury TECHNIQUE: Imaging protocol: Radiologic exam of the right hand. Views: 3 or more views. COMPARISON: No relevant prior studies available. FINDINGS: Bones/joints: There is joint space narrowing in the DIP joints and PIP joints of the fingers and IP joint of the thumb consistent with degenerative changes. Subtle Lucency in the distal aspect of the distal phalanx of the ring finger may represent nondisplaced tuft fracture. Soft tissues: Soft tissue swelling of the ring finger IMPRESSION: 1. There is joint space narrowing in the DIP joints and PIP joints of the fingers and IP joint of the thumb consistent with degenerative changes. 2. Subtle Lucency in the distal aspect of the distal phalanx of the ring finger may represent nondisplaced tuft fracture.
[2025-01-25 12:32] VITALS: BP 121/66; PULSE 82; RESP 14; O2SAT 98
[2025-01-25 13:19] VITALS: BP 125/85; PULSE 76; RESP 15; O2SAT 100
[2025-01-25] MEDS: TET/DIPHTH/PERT-ADULT 0.5ML SYRINGE 0.5 ML IM (13:58)
[2025-01-25 14:27] VITALS: BP 130/70; PULSE 79; O2SAT 98
[2025-01-25] MEDS: CLINDAMYCIN 150MG CAPSULE 300 MG PO (14:28)
[2025-01-25 14:33] VITALS: BP 130/70; PULSE 79; RESP 15; TEMP 36.9; O2SAT 98
--- NOTE | 2025-01-25 14:36 | ED_ITS ---
<Statement entered by Loulou Rivera MD - 01/25/25 14:54> I was consulted by the TIANA, and we discussed the complexity of the problems being addressed. I approved the treatment and management plan for this patient's care in the emergency department, thus performing a substantive portion of the medical decision making. Loulou Rivera MD, JAGRUTI, FACEP Discharge Plan Disposition Patient Disposition: Home, Self-Care Condition: Good Prescriptions Prescriptions: New clindamycin HCl [Cleocin HCl] 300 mg capsule 300 mg PO Q6H 10 Days Qty: 40 0RF No Action levothyroxine 75 mcg tablet 75 mcg PO DAILY cilostazol 50 mg tablet 50 mg PO DAILY amlodipine 5 mg tablet 5 mg PO DAILY mirtazapine 15 mg tablet 15 mg PO DAILY nicotine 21 mg/24 hr patch 24 hour 1 patch transdermal Q24H Qty: 28 1RF albuterol sulfate [Ventolin HFA] 90 mcg/actuation HFA aerosol inhaler 2 inh inhalation QID PRN (Reason: shortness of breath or wheezing) 90 Days Qty: 8.5 3RF nicotine (polacrilex) 2 mg lozenge 2 mg buccal Q4H PRN (Reason: nicotine cravings) Qty: 108 2RF rivaroxaban [Xarelto] 2.5 mg tablet 2.5 mg PO BID Qty: 60 3RF clopidogrel [Plavix] 75 mg tablet 75 mg PO DAILY Qty: 90 3RF Referrals Follow up/Referrals: Salvador Anderson MD [Primary Care Provider, Medical] - See instructions Abner Cobos DO [Staff Physician, Orthopedics] - See instructions Activity Restrictions/Add. Instructions Additional Instructions/Restrictions: You were seen for a finger laceration and possible fracture. Take your antibiotics as prescribed. Return to the ER if bleeding restarts. See the orthopedist in the office. Clinical Impressions Clinical Impression: Open fracture of tuft of distal phalanx of finger Instructions Patient Instructions: DI for Laceration Repair, DI for Finger Fracture Print Language Print Language: Jordanian Discharge ED Provider: Loulou Rivera General Adult [facility] General Chief complaint: Wound/Laceration Stated complaint: right hand, ring finger pain, bleeding Time Seen by Provider: 01/25/25 12:04 Mode of Arrival: Ambulatory Source of Information: Patient Description of Symptoms (Recalled from ER Triage Doc. by RN): patient states lastnight she got her right ring finger shut in the refrigerator door and it ripped part of her nail off. she got the bledding to stop lastnight but today it started back. she is on blood thinners. deneis any pain History of Present Illness HPI narrative: Patient presents with bleeding to her right fourth fingernail. She has long acrylic nails and reports that she got it caught in the fridge door last night. The nail broke off and took the distal end of her fingernail off as well. The bleeding was initially controlled, however this morning it started to bleed again. She does take Plavix and Xarelto. Denies any pain. Denies any fever. Denies any decreased range of motion. complaint: fingernail injury Onset (ago): day(s) (1) Location: right and upper extremity Radiation: non-radiation Severity: mild Consistency: intermittent Relieving factors: none Exacerbating factors: none Associated symptoms: negative fever/chills Related Data Home Medications ?Medication ?Instructions ?Recorded ?Confirmed levothyroxine 75 mcg tablet 75 mcg PO DAILY thyroid 12/25/24 amlodipine 5 mg tablet 5 mg PO DAILY 12/08/2412/25 cilostazol 50 mg tablet 50 mg PO DAILY 12/08/2411/29 mirtazapine 15 mg tablet 15 mg PO DAILY 12/08/2411/29 Previous Rx's ?Medication ?Instructions ?Recorded albuterol sulfate 90 mcg/actuation 2 inh inhalation QI D PRN shortness 12/08/24 aerosol inhaler (Ventolin HFA) of breath or wheezing 9 0 days #8.5 grams nicotine (polacrilex) 2 mg buccal 2 mg buccal Q4H PRN nicotine 12/08/24 lozenge cravings #108 ea nicotine 21 mg/24 hr daily 1 patch transdermal Q24H #2 8 ea 12/08/24 transdermal patch clopidogrel 75 mg tablet (Plavix) 75 mg PO DAILY #90 t abs 12/25/24 rivaroxaban 2.5 mg tablet (Xarelto) 2.5 mg PO BID #60 tabs 12/25/24 clindamycin HCl 300 mg capsule 300 mg PO Q6H 10 days # 40 caps 01/25/25 (Cleocin HCl) Allergies Allergy/AdvReac Type Severity Reaction Status Date / Time Penicillins Allergy Rash Verified 12/25/24 13:35 [facility] Disclaimer: The information contained in this section may have been updated after the patient was seen, as this information can be updated by other users. Medical History Dyspnea on exertion Pulmonary emphysema Mediastinal lymphadenopathy Smoking greater than 30 pack years Tobacco abuse counseling Tobacco abuse History of lung cancer Renal artery stenosis Femoral artery occlusion Family history of heart disease Tobacco user Leg pain Heart murmur Surgical History History of lung surgery History of total hysterectomy Family History Mother Diabetes Sister Coronary artery disease Social History Smoking Status: Never smoker alcohol intake: never substance use type: denies use current occupational status: retired Travel in the last 8 weeks?: Inside the [place] Have you lived/traveled outside [place] in past 30 days?: No Contact w/someone who lives/traveled outside [place] past 30 days?: No Exposure to someone with infectious disease in past 14 days?: No Do you have a fever (greater than 100.4 F or 38 C)?: No Have you tested positive for COVID-19?: No Exposed to someone with COVID-19 in past 14 days?: No Do you have a sore throat?: No Do you have a cough?: No Do you have any weakness?: No Do you have any diarrhea?: No Are you experiencing any unusual bleeding?: No Do you have any muscle aches/pain?: No Do you have any abdominal pain?: No Are you experiencing loss of taste or smell?: No Other Medical History Have you received the Pneumonia Vaccine: Yes ROS Obtained: Yes Systems reviewed as appropriate & no additional complaints except as documented Physical Exam General General appearance: alert and in no apparent distress Head Head exam: atraumatic and normocephalic Eye Eye exam: Present normal appearance and EOMI Chest Chest inspection: Present symmetric chest wall rise Respiratory Respiratory exam: Present normal lung sounds bilaterally; Absent wheezes or stridor Cardiovascular Cardiovascular exam: Present regular rate and normal rhythm; Absent systolic murmur Extremities Exam Extremities exam: Present full ROM and other (Right 4th digit second 1/2 of nail has been removed with active bleeding distally, N/V intact, FROM. No nail bed injury ) Neurological Exam Neurological exam: Present alert and oriented X3 Psychiatric Psychiatric exam: Present normal affect and normal mood Skin Skin exam: Present warm, dry and intact Medical Decision Making Medical Records Screening: Per USPSTF and CDC recommendations, given the prevalence of disease in our region, it is our hospital?s policy to screen for HIV and viral Hepatitis for all patients aged 18 and over and those with ongoing risk factors. [place] Inquiry Pt receiving controlled substance: No Vital Signs: 01/25/25 11:40 01/25/25 12:32 01/25/25 13:19 Temperature 98.4 F Temperature Source Oral Pulse Rate 82 76 Pulse Rate [Right Radial] 85 Respiratory Rate 18 14 15 Blood Pressure 121/66 125/85 Blood Pressure [Right Arm] 132/63 Blood Pressure Mean [Right Arm] 86 Blood Pressure Source Automatic Cuff Blood Pressure Source [Right Arm] Automatic Cuff Blood Pressure Position Sitting Blood Pressure Position [Right Arm] Sitting 02 Sat by Pulse Oximetry 99 98 100 Oxygen Delivery Method Room Air Room Air Room Air 01/25/25 14:27 01/25/25 14:33 Temperature 98.4 F Temperature Source Oral Pulse Rate 79 79 Pulse Rate [Right Radial] Respiratory Rate 15 Blood Pressure 130/70 130/70 Blood Pressure [Right Arm] Blood Pressure Mean [Right Arm] Blood Pressure Source Automatic Cuff Automatic Cuff Blood Pressure Source [Right Arm] Blood Pressure Position Sitting Blood Pressure Position [Right Arm] 02 Sat by Pulse Oximetry 98 Oxygen Delivery Method Room Air Room Air Orders (Tests/Meds): ED MEDICATIONS Discontinued Medications Generic Name Dose Route Start Last Admin Trade Name Freq PRN Reason Stop Dose Admin Clindamycin HCl 300 mg 01/25/25 14:22 01/25/25 14:28 Clindamycin 150mg Capsule PO 01/25/25 14:23 300 mg ONCE ONE Administration Tetanus/Reduced Diphtheria/Acell Pertussis 0.5 ml 01/25/25 13:40 01/25/25 13:58 Tet/Diphth/Pert-Adult 0.5ml Syringe IM 01/25/25 13:41 0.5 ml .ONCE ONE Administration ORDERS Category Date Time Status Hand XR right minimum 3 views [XR hand RT min 3V] Stat Exams 01/25/25 12:12 Completed Medical Decision Narrative: In summary patient is a 79-year-old who presents the emergency department for evaluation of fingernail. Patient is hemodynamically stable upon arrival, afebrile. Right fourth digit distal end of the finger and nail avulsed and actively bleeding. Differential diagnosis includes tuft fracture, fingernail injury. Initial workup will be conducted with x-ray. Initial inventions include compression dressing, Surgicel and silver nitrate sticks. Initial workup reviewed by me possible tuft fracture on x-ray. Upon repeat evaluation patient had resolution of bleeding with application of silver nitrate and Surgicel. Given this patient bandaged and given follow-up with orthopedics, started on clindamycin due to possible tuft fracture. Tdap updated. Critical Care Critical Care Time Critical Care Time: No
== END 2025-01-25 14:34 | disposition home or self-care (01) ==
PROVIDERS: Emergency Provider Student in an Organized Health Care Education/Training Program; PCP Family Medicine
DX: S62.664B Nondisplaced fracture of distal phalanx of right ring finger, initial encounter for open fracture (principal); M79.644 Pain in right finger(s); W23.0XXA Caught, crushed, jammed, or pinched between moving objects, initial encounter
CPT/HCPCS: 73130; 90471; 90715; 99284

== ENCOUNTER 2025-02-19 14:18 | Outpatient (CLI) | payer MEDICARE, OTHER, SELFPAY ==
--- OUTSIDE RECORDS SUMMARY | 2025-01-06 10:00 | XMS_ITS | Encounter Summary ---
Author Organization [facility] Address [address] [place] [address] Care Team Providers Care Bandoleer Packer Name Role Phone Quinten Anderson MD Primary Care Provider [phone] Encounter Details Date Type Department Care Team (Latest Contact Info) Description 01/06/2025 10:00 AM EDT - 01/06/2025 10:59 AM EDT Hospital Encounter PAV [address] [address] Abnormal findings on diagnostic imaging of breast [...] Description 07/30/2025 8:00 AM EDT Appointment PAV [facility] [address] [place] [address] 07/30/2025 9:30 AM EDT Office Visit [facility] [place] [address] [facility] [place] [address] Parish Lou MD [address] [facility] [address] [place] [address] documented as of this encounter [...] presents [facility] TECHNIQUE: Bilateral diagnostic mammogram [...] breast documented in this encounter Care Teams Bandoleer Packer Relationship Specialty Start Date End Date Quinten Anderson MD [address] [place] [address] #1 [address]1 [place] [address] PCP - General 09/10/20 documented as of this encounter
--- OUTSIDE RECORDS SUMMARY | 2025-01-06 11:00 | XMS_ITS | Encounter Summary ---
Author Organization [facility] Address [address] [place] [address] Care Team Providers Care Export Clerk Name Role Phone Quinten Anderson MD Primary Care Provider Encounter Details Date Type Department Care Team (Latest Contact Info) Description 01/06/2025 11:00 AM EDT - 01/06/2025 1:14 PM EDT Hospital Encounter PAV [address] [address] Abnormal findings on diagnostic imaging of breast [...] Description 07/30/2025 8:00 AM EDT Appointment PAV [facility] [address] [place] [address] 07/30/2025 9:30 AM EDT Office Visit [facility] Breast Care Center [address] [facility], 2nd [place] [address] Parish Lou MD [address] [facility] [address] [place] [address] documented as of this encounter [...] presents following [facility] TECHNIQUE: Bilateral diagnostic [...] breast documented in this encounter Care Teams Export Clerk Relationship Specialty Start Date End Date Quinten Anderson MD [address] [place] [address] #1 #1 [place] [address] PCP - General 09/10/20 documented as of this encounter
--- OUTSIDE RECORDS SUMMARY | 2025-01-06 13:15 | XMS_ITS | Encounter Summary ---
Author Organization Healthcare Address [address] [place] [address] Care Team Providers Care Cloth Shearing Supervisor Name Role Phone Quinten Anderson MD Primary Care Provider [phone] Reason for Visit * Imaging (Routine) - Pending Review Specialty Diagnoses / Procedures Referred By Contac t Referred To Contact Radiology Diagnoses Abnormal findings on diagnostic imaging of breast Procedures US Axilla Right Quinten Anderson MD [address] [place] [address] #1 #1 [place] [phone] Phone: tel: fax: Referral ID Status Reason Start Date Expiration Date V isits Requested Visits Authorized [id number] Pending Review 01/06/2025 07/08/2026 1 1 Encounter Details Date Type Department Care Team (Latest Contact Info) Description 01/06/2025 1:15 PM EDT - 01/06/2025 11:59 PM EDT Hospital Encounter [facility] [address] [address] Abnormal findings on diagnostic imaging of breast [...] 8:00 AM EDT Appointment P[facility] [address] [place] [address] 07/30/2025 9:30 AM EDT Office Visit PAV Breast [facility] [address] [facility], 2nd [place] [address] Parish Lou MD [address] [facility] [address] [place] [address] documented as of this encounter Procedures Procedure [...] presents following partially [facility] TECHNIQUE: Bilateral diagnostic mammogram [...] breast documented in this encounter Care Teams Cloth Shearing Supervisor Relationship Specialty Start Date End Date Quinten Anderson MD [address] [place] [address] #1 #1 [place] [address] PCP - General 09/10/20 documented as of this encounter
--- OUTSIDE RECORDS SUMMARY | 2025-01-15 13:51 | XMS_ITS | Encounter Summary ---
Author Organization Healthcare Address [address] [place] [address] Care Team Providers Care Glue Drier Operator Name Role Phone Quinten Anderson MD Primary Care Provider [phone] Encounter Details Date Type Department Care Team (Latest Contact Info) Description 01/15/2025 1:51 PM EDT - 01/15/2025 2:26 PM EDT Hospital Encounter [facility] Breast Care Center [facility] Breast Care Center [address] [phone] Abnormal findings on diagnostic imaging of breast [...] AM EDT Appointment [facility] Breast [facility] Breast Care Center [place] [phone] 07/30/2025 9:30 AM EDT Office Visit [facility] Breast [facility] [address] [facility], 2nd [place] [address] Parish Lou MD [address] [facility] S[address] [place] [address] documented as of this encounter [...] documented in the patient's chart at the [facility] Breast [facility] [place]. Drafted by Yee Hernandez MD on 01/22/2025 [...] PM EDT) Case Report Surgical Pathology Case: [id number] Authorizing Provider: Quinten Anderson MD Collected: 01/15/2025 1410 Ordering Location: [facility] Received: 01/15/2025 1600 Pathologist: Marianela Ugarte MD Specimen: Breast, Left, Left breast solid mass 2:00-4:00 spans 8 cm 10:50 AM EDT [facility] Final Diagnosis A. 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 Clinical Information R92.8 - Abnormal findings on diagnostic imaging of breast [ICD-10-CM] 10:[address] [facility] Special and Immunohistochemical Stains Special Stain: There are no tasks to display for the given criteria. IHC: A1-4 ER Quantitative (%) A1-5 KS (Progesterone) Quantitative (%) A1-6 HER2/PALMER Quantitative A1-7 HER2 FISH Extra Slide A1-8 HER2 FISH Extra Slide A1-9 HER2 FISH Extra Slide All controls show appropriate reactivity. All immunohistochemist ry, in situ hybridization, and histochemical tests were developed by and are performed at the [facility], [address] [place] [address]. All tests reported here, except those addressing [...] on decalcified specimens. 5 10:[address] [facility] Gross Description A. LEFT BREAST SOLID [...] Time: 1m Pat Austin 10:50 AM EDT [facility] Intradepartmental Consultation with Agreement This case was seen in consultation with Dr. Chacon, who concurs with the above diagnosis. 10:50 AM EDT [facility] Note: A resident was involved in the service. I attest I examined the relevant preparations for the specimens and confirmed the diagnosis or interpretation. 10:50 AM EDT [facility] Tissue Left breast structure / Unknown 01/15/2025 2:10 PM EDT 01/15/2025 4:00 PM EDT us Quinten Anderson MD LAB PATHOLOGY ORDERABLES Final Result [facility] [address] [place] [address] documented in this encounter Visit Diagnoses Diagnosis [...] Chest documented in this encounter Care Teams Glue Drier Operator Relationship Specialty Start Date End Date Quinten Anderson MD [address] [place] [address] #1 [address]1 [place] [address] PCP - General 09/10/20 documented as of this encounter
--- OUTSIDE RECORDS SUMMARY | 2025-01-15 14:27 | XMS_ITS | Encounter Summary ---
Author Organization [facility] Address [address] [place] [address] Care Team Providers Care Radar Engineering Teacher Name Role Phone Quinten Anderson MD Primary Care Provider [phone] Encounter Details Date Type Department Care Team (Latest Contact Info) Description 01/15/2025 2:27 PM EDT - 01/15/2025 11:59 PM EDT Hospital Encounter [facility] [address] [phone] Abnormal findings on diagnostic imaging of breast [...] 07/30/2025 8:00 AM EDT Appointment [facility] [address] [place] [address] 07/30/2025 9:30 AM EDT Office Visit [facility] Breast [facility] [address] [facility], 2nd [place] [address] Parish Lou MD [address] [facility] S[address] [place] [address] documented as of this encounter [...] documented in the patient's chart at the [facility] [place]. Drafted by Yee Hernandez MD on 01/22/2025 [...] breast documented in this encounter Care Teams Radar Engineering Teacher Relationship Specialty Start Date End Date Quinten Anderson MD [address] [place] [address] #1 [address]1 [place] [address] PCP - General 09/10/20 documented as of this encounter
--- OUTSIDE RECORDS SUMMARY | 2025-01-29 11:00 | XMS_ITS | Encounter Summary ---
Author Organization Healthcare Address [address] [place] [address] Care Team Providers Care Solutions Specialist Name Role Phone Quinten Anderson MD Primary Care Provider [phone] Encounter Details Date Type Department Care Team (Late st Contact Info) Description 01/29/2025 11:00 AM EDT Office Visit [facility] Breast Care Center [address] [facility], 2nd [place] [address] Parish Lou MD [address] [facility] Sari Murry [facility] [address] [place] [address] Malignant neoplasm of upper-outer quadrant [...] Pathology returned IDC with mucinous features, G2, ER/AZ+, Her2- with U clip left in place. Another lesion noted at 3 oclock 11cfn measuring [id number] which was biopsy proved to be a normal lymph node. Results Imaging CT chest: lymphadenopathy, recurrence of non-small cell lung cancer. Mammography and ultrasound: 9.2 cm subareolar mass at 3:00, IDC grade 2, ER/AZ positive, HER2 negative. Axillary ultrasound: benign findings bilaterally, 3 normal lymph nodes on the left, 4 normal lymph nodes on the right. Testing Biopsy: left breast mass confirmed IDC grade 2, ER/AZ positive, HER2 negative. History of Present Illness 79-year-old female with stage IIIA lung cancer and new ER+/AZ+/HER2- IDC of the left breast, diagnosed 11/2024. Oncological and Treatment History: History of lung cancer with left-sided lung resection 20 years ago. In 11/2024, a CT chest revealedlymphadenopathy and recurrence of non-small cell lung cancer. An incidental left breast mass was noted. Mammography and ultrasound showed a 9.2 cm subareolar mass at 3:00. A biopsy confirmed IDC grade 2, ER/AZ positive, HER2 negative. A U clip after [...] Stage IIA (cT3, cN0, cM0, G2, ER+, AZ+, HER2-) - Signed by Parish Lou MD [...] PMHx: Past Medical History[1] PSHx: Surgical History[2] [employer] PRACTITIONER/Breast Hx: -Menarche: 18 -LMP: unknown -OCP hx: [...] Drug Administration (FDA) cleared (test / vendor): [place] [facility] Primary Antibody: SP1 PgR Testing Methodology: PgR Test Type: Food and Drug Administration (FDA) cleared (test / vendor): [place] PgR Primary Antibody: 1E2 HER2 IHC Testing Methodology: HER2 IHC Test Type: Food and Drug Administration (FDA) cleared (test / vendor): [place] HER2 IHC Primary Antibody: 4B5 Image Analysis: Not performed Assessment/Plan Patient is a 79 y.o. female presenting with left invasive ductal carcinoma, AWD. Cancer Staging Malignant neoplasm of overlapping sites of left breast in female, estrogen receptor positive Staging form: Breast, AJCC 8th Edition - Clinical stage from 01/29/2025: Stage IIA (cT3, cN0, cM0, G2, ER+, AZ+, HER2-) - Signed by Parish Lou MD on 02/08/2025 Histopathologic type: Infiltrating duct carcinoma, NOS Stage prefix: Initial diagnosis Method of lymph node assessment: Clinical Histologic grading system: 3 grade system Assessment & Plan Invasive ductal carcinoma. 9 cm ER/AZ positive, HER2 negative mass in the left [...] [facility] [place] [address] [facility] [address] [place] [address] 07/30/2025 9:30 AM EDT Office Visit [facility] Breast Care [place] [address] [facility], 2nd [place] [address] Parish Lou MD 800 [facility] [address] [place] [address] Scheduled Orders Name Type Priority Associated Diagnoses [...] documented as of this encounter Care Teams Solutions Specialist Relationship Specialty Start Date End Date uQinten Anderson MD [address] [place] [address] [address]1 [address]1 [place] [address] PCP - General 09/10/20 documented as of this encounter
[2025-02-19 14:35] LABS: Hematocrit 42.3 % (37.0-47.0); Hemoglobin 13.4 g/dL (12.2-16.2); Immature Granulocytes % 0.4 %; Mean Corpuscular HGB Conc 31.7 g/dL (31.8-35.4); Mean Corpuscular Hemoglobin 27.1 pg (27.0-31.2); Mean Corpuscular Volume 85.6 fl (81-99); Nucleated Red Blood Cells % 0 %; Platelet Count 337 K/mm3 (142-424); Red Blood Count 4.94 M/mm3 (4.20-5.40); Red Cell Distribution Width-SD 45.5 fL; White Blood Count 6.9 K/mm3 (4.8-10.8)
--- OUTSIDE RECORDS SUMMARY | 2025-02-19 14:55 | XMS_ITS | Encounter Summary ---
Author Organization [facility] Address [address] [place] [address] Care Team Providers Care Bucket Chucker Name Role Phone Quinten Anderson MD Primary Care Provider [phone] Encounter Details Date Type Department Care Team (Late st Contact Info) Description 01/07/2025 Orders Only PAV [address] [place] [phone] Liudmila Bravo, RN Social History Tobacco Use [...] Description 07/30/2025 8:00 AM EDT Appointment PAV [address] [place] [address] 07/30/2025 9:30 AM EDT Office Visit [facility] [address] [facility], 2nd [place] [address] Parish Lou MD [address] [facility] [address] [phone] documented as of this encounter Visit Diagnoses Not on filedocumented in this encounter Care Teams Bucket Chucker Relationship Specialty Start Date End Date Quinten Anderson MD [address] [place] [address] #1 [address]1 [place] [address] PCP - General 09/10/20 documented as of this encounter
--- OUTSIDE RECORDS SUMMARY | 2025-02-19 14:55 | XMS_ITS | Encounter Summary ---
Author Organization [facility] Address [address] [place] [address] Care Team Providers Care Inspector And Clerk Name Role Phone Quitnen Anderson MD Primary Care Provider [phone] Encounter Details Date Type Department Care Team (Late st Contact Info) Description 12/22/2024 Telephone PAV [facility] [address] [address] [place] [address] Social History Tobacco Use Types Packs/Day Years [...] Upcoming Encounters Date Type Department Care Team ([facility] st Contact Info) Description 07/30/2025 8:00 AM EDT Appointment [facility] [place] [address] Sari Murry [facility] 800 [place] [address] 07/30/2025 9:30 AM EDT Office Visit [facility] [place] [address] [facility], 2nd [place] [address] Parish Lou MD [address] [facility] Sari Murry [address] [address] documented as of this encounter Visit Diagnoses Not on filedocumented in this encounter Care Teams Inspector And Clerk Relationship Specialty Start Date End Date Quinten Anderson MD [address] [place] [address] [address]1 [place] [address] PCP - General 09/10/20 documented as of this encounter
--- OUTSIDE RECORDS SUMMARY | 2025-02-19 14:55 | XMS_ITS | Clinical Summary ---
Author Organization Healthcare Address [address] [place] [address] Care Team Providers Care Paver Operator Name Role Phone Quinten Anderson MD Primary Care Provider [phone] Allergies Active Allergy Reactions Criticality Noted Date Comments Penicillins Hives Medium 01/07/2025 Medications acetaminophen-co deine (Tylenol w/ Codeine #3) 300-30 MG tablet Take 1 tablet by mouth every 6 hours as needed. Active albuterol 108 (90 Base) MCG/ACT inhaler 12/08/2024 Act marga amLODIPine (Norvasc) 5 MG tablet 12/02/2024 Active cilostazol (Pletal) 50 MG tablet 11/02/2024 Active clopidogrel (Plavix) 75 MG tablet 12/25/2024 Active levothyroxine (Synthroid, Levoxyl) 75 MCG tablet Active mirtazapine (Remeron) 15 MG tablet 07/01/2024 Active Active Problems Problem Noted Date Diagnosed Date Non-small cell cancer of left lung 01/29/2025 Tobacco abuse 01/29/2025 Malignant neoplasm of overla pping sites of left breast in female, estrogen receptor positive 01/29/2025 Cancer Staging:Clinical stage from 01/29/2025:Stage IIA(cT3, cN0, cM0, G2, ER+, GA+, HER2-) - Signed by Parish Lou MD on 02/08/2025 Encounters Date Type Department Care Team Description 02/03/2025 Travel 01/29/2025 11:00 AM EDT Office Visit [facility] [address] [facility], 2nd [place] [address] Parish Lou MD Malignant neoplasm of upper-outer quadrant of left breast in female, estrogen receptor positive (Primary Dx) 01/29/2025 Travel 01/22/2025 Telephone PAV [facility] [address] [facility] [address] [place] [address] Liudmila Bravo, RN 01/15/2025 2:27 PM EDT - 01/15/2025 11:59 PM EDT Hospital Encounter PAV [facility] [address] [facility] [address] [place] [address] Abnormal findings on diagnostic imaging of breast Discharge Disposition: Home or Self Care 01/15/2025 1:51 PM EDT - 01/15/2025 2:26 PM EDT Hospital Encounter PAV [facility] [address] [facility] [address] [place] [address] Abnormal findings on diagnostic imaging of breast Discharge Disposition: Home or Self Care 01/15/2025 Travel 01/08/2025 Orders Only External Location [address] [place] [address] Provider, External 01/07/2025 Orders Only PAV [facility] [address] [facility] [address] [place] [address] Liudmila Bravo, RN 01/07/2025 Telephone PAV [facility] [address] [facility] [address] [place] [address] Liudmila Bravo, RN 01/07/2025 Telephone PAV [facility] [address] [facility] [address] [place] [address] Liudmila Bravo, RN 01/06/2025 1:15 PM EDT - 01/06/2025 11:59 PM EDT Hospital Encounter PAV [facility] [address] Mur[address] [facility] [address] [place] [address] Abnormal findings on diagnostic imaging of breast Discharge Disposition: Home or Self Care 01/06/2025 11:00 AM EDT - 01/06/2025 1:14 PM EDT Hospital Encounter PAV [facility] [address] Murry [facility] [address] [place] [address] Abnormal findings on diagnostic imaging of breast Discharge Disposition: Home or Self Care 01/06/2025 10:00 AM EDT - 01/06/2025 10:59 AM EDT Hospital Encounter PAV [facility] [address]ry [facility] [address] [place] [address] Abnormal findings on diagnostic imaging of breast Discharge Disposition: Home or Self Care 01/06/2025 Travel 12/22/2024 Telephone PAV [facility] [address] Mur[address] [facility] [address] [place] [address] Emily Pruitt 12/19/2024 Orders Only External Location [address] [place] [address] Provider, External 12/01/2024 Orders Only External Location [address] [place] [address] Provider, External from Last 3 Months Family [...] Mass Index 31.88 01/29/2025 11:19 AM EDT Plan of Treatment Upcoming Encounters Date Type Department Care Team (Late st Contact Info) Description 07/30/2025 8:00 AM EDT Appointment PAV [facility] [address] Mur[address] Building [address] [place] [address] 07/30/2025 9:30 AM EDT Office Visit [facility] [address] [facility], 2nd [place] [address] Parish Lou MD [address] [facility] Sari Murry [address] Alex[address] [place] [address] Health Maintenance Due Date Last Done Comments [facility]-Bone Density Scan 1945 [facility]-Depression Screening 1945 [facility]-Hepatitis C Screening 1945 [facility]-Medicare Annual Wellness (AWV) 1945 [facility]-Infant/Child/Adol SDOH Screenings 01/01/1947 [facility]- SDOH Screenings 1964 [facility]-Adult SDOH Screenings 1964 [facility]-Pneumococcal Vaccine: 50+ Years (1 of 2 - PCV) 1965 [facility]-Zoster Vaccines (1 of 2) 1965 [facility]-RSV Vaccine: 60+ Years or (1 - 1-dose 75+ series) 2021 [id number] Vaccine (3 - season) 2024 04/08/2021, 07/07/2020 [facility]-Influenza Vaccine (#1) 12/29/202402/08, 03/28/2016 [facility]-DTaP,Tdap,and Td Vaccines (2 - Td or Tdap) 01/25/2035 01/25/2025 [facility]-Breast Cancer Screening Discontinued 01/06/2025 [facility]-Obesity Intervention Completed 01/29/2025 HPV Vaccines Aged Out No longer eligi [...] documented in the patient's chart at the [facility] [place]. Drafted by Yee Hernandez MD on 01/22/2025 [...] documented in the patient's chart at the [facility]. Drafted by Yee [...] PM EDT) Case Report Surgical Pathology Case: [id number] Authorizing Provider: Quinten Anderson MD Collected: 01/15/2025 1410 Ordering Location: [facility] Received: 01/15/2025 1600 Pathologist: Marianela Ugarte MD Specimen: Breast, Left, Left breast solid mass 2:00-4:00 spans 8 cm 5 10:50 AM EDT [facility] Final Diagnosis A. 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 - TUMOR INVOLVES SEVEN OF SEVEN CORES (7/7) - SEE BIOMARKER CHECKLIST 10:50 AM EDT [facility] at 1050 EDT Synoptic Checklist Breast [...] Drug Administration (FDA) cleared (test / vendor): [place] [facility] Primary Antibody: SP1 PgR Testing Methodology: PgR Test Type: Food and Drug Administration (FDA) cleared (test / vendor): [place] PgR Primary Antibody: 1E2 HER2 IHC Testing Methodology: HER2 IHC Test Type: Food and Drug Administration (FDA) cleared (test / vendor): [place] HER2 IHC Primary Antibody: 4B5 Image Analysis: Not performed 5 10:[address] [facility] Clinical Information R92.8 - Abnormal findings on diagnostic imaging of breast [ICD-10-CM] 5 10:50 AM EDT [facility] Special and Immunohistochemical Stains Special Stain: There are no tasks to display for the given criteria. IHC: A1-4 ER Quantitative (%) A1-5 GA (Progesterone) Quantitative (%) A1-6 HER2/PALMER Quantitative A1-7 HER2 FISH Extra Slide A1-8 HER2 FISH Extra Slide A1-9 HER2 FISH Extra Slide All controls show appropriate reactivity. All immunohistochemist ry, in situ hybridization, and histochemical tests were developed by and are performed at the [facility], [address] [place] [address]. All tests reported here, except those addressing [...] negativity on decalcified specimens. 10:50 AM EDT [facility] Gross Description A. LEFT BREAST SOLID [...] Time: 1m Pat Austin 10:50 AM EDT [facility] Intradepartmental Consultation with Agreement This case was seen in consultation with Dr. Chacon, who concurs with the above diagnosis. 10:50 AM EDT [facility] Note: A resident was involved in the service. I attest I examined the relevant preparations for the specimens and confirmed the diagnosis or interpretation. 10:50 AM EDT [facility] Tissue Left breast structure / Unknown 01/15/2025 2:10 PM EDT 01/15/2025 4:00 PM EDT us Quinten Anderson MD LAB PATHOLOGY ORDERABLES Final Result [facility] [address] [place] [address] * MR NEURO OUTSIDE IMAGES (01/08/2025 8:48 [...] presents following [facility]. TECHNIQUE: Bilateral diagnostic [...] of CAD and tomosynthesis. Drafted by Jeff Rajna MD on 01/06/2025 11:35 AM Final report [...] presents following partially [facility] TECHNIQUE: Bilateral diagnostic [...] presents following partially [facility] TECHNIQUE: Bilateral diagnostic [...] Final from Last 3 Months Insurance MEDICARE [facility] Care Teams Paver Operator Relationship Specialty Start Date End Date Quinten Anderson MD [address] [place] [address] #1 [address]1 [place] [address] [facility] - General 09/10/20
--- OUTSIDE RECORDS SUMMARY | 2025-02-19 14:56 | XMS_ITS | Encounter Summary ---
Author Organization Healthcare Address [address] [place] [address] Care Team Providers Care Brick Veneer Maker Name Role Phone Quinten Anderson MD Primary Care Provider Encounter Details Date Type Department Care Team (Late st Contact Info) Description 12/15/2022 Orders Only External Location [address] [place] [phone] Marty Hargrove MD [address] [facility] [address] [place] [address] Social History Tobacco Use Types Packs/Day Years Used Date Smoking Tobacco: Never Assessed Comments Unknown Sex and Gender Information Value Date Recorded Sex Assigned at Not on file Legal Sex Female 8:19 PM EDT Gender Identity Not on file Sexual Orientation Not on file documented as of this encounter Plan of Treatment Upcoming Encounters Date Type Department Care Team (Late Contact Info) Description 07/30/2025 8:00 AM EDT Appointment P[facility] [place] [address] [address] [place] [address] 07/30/2025 9:30 AM EDT Office Visit [facility] [address] [facility], 2nd [place] [address] Parish Lou MD [address] [facility] S[address] Mur[address] [place] [address] documented as of this encounter Procedures Procedure Name Priority Date/Time Associated Diagnosis Comments CT ANGIO ABDOMEN 12/15/2022 1:11 PM EDT documented in this encounter Results * CT Angio Abdomen (12/15/2022 1:11 PM EDT) Anatomical Region Laterality Modality Abdomen Computed Tomogra phy 12/15/2022 1:11 PM EDT Marty Hargrove MD IMG CT PROCEDURES Edited R esult - Final documented in this encounter Visit Diagnoses Not on filedocumented in this encounter Care Teams Brick Veneer Maker Relationship Specialty Start Date End Date Quinten Anderson MD [address] [place] [address] [address]1 [address] [place] [address] PCP - General 09/10/20 documented as of this encounter
--- OUTSIDE RECORDS SUMMARY | 2025-02-19 14:56 | XMS_ITS | Encounter Summary ---
Author Organization Healthcare Address [address] [place] [address] Care Team Providers Care Imaging Technician Name Role Phone Quinten Anderson MD Primary Care Provider [phone] Encounter Details Date Type Department Care Team (Late st Contact Info) Description 11/10/2022 Orders Only External Location [address] [place] [phone] Provider, External Social History Tobacco Use Types [...] Breast Care Center [facility] [place] [address] S[address] Murry [facility] 800 [place] [address] 07/30/2025 9:30 AM EDT Office Visit [facility] [address] [facility], 2nd [place] [phone] Parish Lou MD [address] [facility] [address] [address] documented as of this encounter [...] on filedocumented in this encounter Care Teams Imaging Technician Relationship Specialty Start Date End Date Quinten Anderson MD [address] [place] [address] #1 #1 [place] [address] PCP - General 09/10/20 documented as of this encounter
--- OUTSIDE RECORDS SUMMARY | 2025-02-19 14:56 | XMS_ITS | Encounter Summary ---
Author Organization Healthcare Address [address] [place] [address] Care Team Providers Care Steelscope Operator Name Role Phone Quinten Anderson MD Primary Care Provider [phone] Encounter Details Date Type Department Care Team (Late st Contact Info) Description 01/07/2025 Telephone PAV [address] [address] Liudmila Bravo, RN Social History [...] wanting to hemanth biopsy. Please return call [phone]. States can call to hemanth w daughter or sone as well documented in this encounter Plan of Treatment Upcoming Encounters Date Type Department Care Team (Late st Contact Info) Description 07/30/2025 8:00 AM EDT Appointment PAV [address] [address] 07/30/2025 9:30 AM EDT Office Visit P[facility] [address] [facility], 2nd [place] [address] Parish Lou MD [address] [facility] [address] [place] [address] documented as of this encounter Visit Diagnoses Not on filedocumented in this encounter Care Teams Steelscope Operator Relationship Specialty Start Date End Date Quinten Anderson MD [address] [place] [address] [address]1 [address] [place] [address] PCP - General 09/10/20 documented as of this encounter
--- OUTSIDE RECORDS SUMMARY | 2025-02-19 14:56 | XMS_ITS | Encounter Summary ---
Author Organization Healthcare Address [address] [place] [address] Care Team Providers Care Supervisor Component Assembler Name Role Phone Quinten Anderson MD Primary Care Provider [phone] Encounter Details Date Type Department Care Team (Late st Contact Info) Description 08/26/2024 Orders Only External Location [address] [place] [address] Provider, External Social History Tobacco Use Types [...] Breast Care Center [facility] [place] [address] [address] Murry [facility] 800 [place] [address] 07/30/2025 9:30 AM EDT Office Visit [facility] [address] [facility], 2nd [place] [address] Parish Lou MD [address] [facility] [address] [address] documented as of this encounter [...] on filedocumented in this encounter Care Teams Supervisor Component Assembler Relationship Specialty Start Date End Date Quinten Anderson MD [address] [place] [address] [address]1 [address] [place] [address] PCP - General 09/10/20 documented as of this encounter
--- OUTSIDE RECORDS SUMMARY | 2025-02-19 14:56 | XMS_ITS | Encounter Summary ---
Author Organization Healthcare Address [address] [place] [address] Care Team Providers Care Retail Commission Sales Associate Name Role Phone Quinten Anderson MD Primary Care Provider [phone] Encounter Details Date Type Department Care Team (Late st Contact Info) Description 12/15/2022 Orders Only External Location [address] [place] [phone] Provider, External Social History Tobacco Use Types [...] Breast Care Center [facility] [place] [address] [address] Murry [facility] 800 [place] [address] 07/30/2025 9:30 AM EDT Office Visit [facility] [address] [facility], 2nd [place] [address] Parish Lou MD [address] [facility] [address] [address] documented as of this encounter [...] on filedocumented in this encounter Care Teams Retail Commission Sales Associate Relationship Specialty Start Date End Date Quinten Anderson MD [address] [place] [address] #1 [address]1 [place] [address] PCP - General 09/10/20 documented as of this encounter
--- OUTSIDE RECORDS SUMMARY | 2025-02-19 14:56 | XMS_ITS | Encounter Summary ---
Author Organization Healthcare Address [address] [place] [address] Care Team Providers Care Administrative Director Name Role Phone Quinten Anderson MD Primary Care Provider [phone] Encounter Details Date Type Department Care Team (Late st Contact Info) Description 12/01/2024 Orders Only External Location [address] [place] [address] Provider, External Social History Tobacco [...] Breast Care [facility] [place] [address] [address] Mur[address] [facility] 800 [place] [address] 07/30/2025 9:30 AM EDT Office Visit [facility] [address] [facility], 2nd [place] [address] Parish Lou MD [address] [facility] Sari Murry [address] [address] documented as of this encounter [...] on filedocumented in this encounter Care Teams Administrative Director Relationship Specialty Start Date End Date Quinten Anderson MD [address] [place] [address] #1 [address]1 [place] [address] PCP - General 09/10/20 documented as of this encounter
--- OUTSIDE RECORDS SUMMARY | 2025-02-19 14:56 | XMS_ITS | Encounter Summary ---
Author Organization Healthcare Address [address] [place] [address] Care Team Providers Care Sales Representative [employer] Name Role Phone Quinten Anderson MD Primary Care Provider [phone] Encounter Details Date Type Department Care Team [...] [facility] [address] [facility] 800 [place] [address] 07/30/2025 9:30 AM EDT Office Visit [facility] 7[address] [facility], 2nd [place] [address] Parish Lou MD 800 [facility] [address] [place] [address] documented as of this encounter Visit Diagnoses Not on filedocumented in this encounter Care Teams Sales Representative [employer] Relationship Specialty Start Date End Date Quinten Anderson MD [address] [facility] [address]1 [address] [place] [address] PCP - General 09/10/20 documented as of this encounter
--- OUTSIDE RECORDS SUMMARY | 2025-02-19 14:56 | XMS_ITS | Encounter Summary ---
Author Organization Healthcare Address [address] [place] [address] Care Team Providers Care Manager Shipping Name Role Phone Quinten Anderson MD Primary Care Provider [phone] Encounter Details Date Type Department Care Team (Late st Contact Info) Description 10/11/2022 Orders Only External Location [address] [place] [phone] Provider, External Social History Tobacco Use Types [...] [facility] [place] [address] Sari Murry [facility] 800 [place] [address] 07/30/2025 9:30 AM EDT Office Visit [facility] [address] [facility], 2nd [place] [phone] Parish Lou MD 800 [facility] S[address] [address] documented as of this encounter [...] filedocumented in this encounter Care Teams Manager Shipping Relationship Specialty Start Date End Date Quinten Anderson MD [address] [place] [address] #1 [address]1 [place] [address] PCP - General 09/10/20 documented as of this encounter
--- OUTSIDE RECORDS SUMMARY | 2025-02-19 14:56 | XMS_ITS | Encounter Summary ---
Author Organization Healthcare Address [address] [place] [address] Care Team Providers Care Refinery Operator Alkylation Name Role Phone Quinten Anderson MD Primary Care Provider [phone] Encounter Details Date Type Department Care Team (Late st Contact Info) Description 11/22/2022 Orders Only External Location [address] [place] [phone] Provider, External Social History Tobacco Use [...] Center [facility] [place] [address] Sari Murry [facility] 800 [place] [address] 07/30/2025 9:30 AM EDT Office Visit [facility] 740 [facility], 2nd [place] [phone] Parish Lou MD 800 [facility] [address] [address] documented as of this [...] on filedocumented in this encounter Care Teams Refinery Operator Alkylation Relationship Specialty Start Date End Date Quinten Anderson MD [address] [place] [address] #1 #1 [place] [address] PCP - General 09/10/20 documented as of this encounter
--- OUTSIDE RECORDS SUMMARY | 2025-02-19 14:56 | XMS_ITS | Encounter Summary ---
Author Organization Healthcare Address [address] [place] [address] Care Team Providers Care Museum Exhibit Technician Name Role Phone Quinten Anderson MD Primary Care Provider [phone] Encounter Details Date Type Department Care Team (Latest Contact Info) Description 02/03/2025 Travel Social History Tobacco Use Types Packs/Day Years Used Date Smoking Tobacco: Former Cigarettes Passive Smoke Exposure: Never Alcohol Use Standard Drinks/Week Comments Not Currently [...] [facility] [place] [address] Sari Murry [facility] 800 [place] [address] 07/30/2025 9:30 AM EDT Office Visit [facility] 7[address] [facility], 2nd [place] [address] Parish Lou MD 800 [facility] [address] [address] documented as of this encounter Visit Diagnoses Not on filedocumented in this encounter Additional Health Concerns Assessment Noted Time A fall risk assessment has been complete d for the patient 01/29/2025 11:19 AM EDT A Body Mass Index follow-up plan has been documented for the patient 02/08/2025 9:17 PM EDT documented as of this encounter Care Teams Museum Exhibit Technician Relationship Specialty Start Date End Date Quinten Anderson MD [address] [place] [address] #1 #1 [place] [address] PCP - General 09/10/20 documented as of this encounter
--- OUTSIDE RECORDS SUMMARY | 2025-02-19 14:56 | XMS_ITS | Encounter Summary ---
Author Organization Healthcare Address [address] [place] [address] Care Team Providers Care Rubber Block Layer Name Role Phone Quinten Anderson MD Primary Care Provider [phone] Encounter Details Date Type Department Care Team [...] Care Center [facility] [address] [facility] 800 [place] [address] 07/30/2025 9:30 AM EDT Office Visit [facility] 740 [facility], 2nd [place] [address] Parish Lou MD 800 [facility] [address] Alexis [address] [place] [address] documented as of this encounter Visit Diagnoses Not on filedocumented in this encounter Care Teams Rubber Block Layer Relationship Specialty Start Date End Date Quinten Anderson MD [address] [facility] [address]1 [address]1 [place] [address] PCP - General 09/10/20 documented as of this encounter
--- OUTSIDE RECORDS SUMMARY | 2025-02-19 14:56 | XMS_ITS | Encounter Summary ---
Author Organization [facility] Address [address] [place] [address] Care Team Providers Care Deburring Technician Name Role Phone Quinten Anderson MD Primary Care Provider [phone] Encounter Details Date Type Department Care Team (Late st Contact Info) Description 01/07/2025 Telephone PAV [address] 800 [place] [phone] Liudmila Bravo, RN Social History Tobacco Use [...] Description 07/30/2025 8:00 AM EDT Appointment PAV [address] 800 [place] [address] 07/30/2025 9:30 AM EDT Office Visit [facility] 740 [facility], 2nd [place] [address] Parish Lou MD 800 [facility] [address] [place] [phone] documented as of this encounter Visit Diagnoses Not on filedocumented in this encounter Care Teams Deburring Technician Relationship Specialty Start Date End Date Quinten Anderson MD [address] [place] [address] #1 #1 [place] [address] PCP - General 09/10/20 documented as of this encounter
--- OUTSIDE RECORDS SUMMARY | 2025-02-19 14:56 | XMS_ITS | Encounter Summary ---
Author Organization Healthcare Address [address] [place] [address] Care Team Providers Care Superintendent Measurement Name Role Phone Quinten Anderson MD Primary Care Provider Encounter Details Date Type Department Care Team (Latest Contact Info) Description 01/29/2025 Travel Social History Tobacco Use Types Packs/Day [...] [facility] [place] [address] Sari Murry [facility] 800 [place] [address] 07/30/2025 9:30 AM EDT Office Visit [facility] 740 [facility], 2nd [place] [address] Parish Lou MD 800 [facility] [address] [address] documented as of this encounter Visit Diagnoses Not on filedocumented in this encounter Additional Health Concerns Assessment Noted Time A fall risk assessment has been complete d for the patient 01/29/2025 11:19 AM EDT A Body Mass Index follow-up plan has been documented for the patient 02/08/2025 9:17 PM EDT documented as of this encounter Care Teams Superintendent Measurement Relationship Specialty Start Date End Date Quinten Anderson MD [address] [place] [address] #1 #1 [place] [address] PCP - General 09/10/20 documented as of this encounter
--- OUTSIDE RECORDS SUMMARY | 2025-02-19 14:56 | XMS_ITS | Encounter Summary ---
Author Organization Healthcare Address [address] [place] [address] Care Team Providers Care Medical Sonographer Name Role Phone Quinten Anderson MD Primary Care Provider [phone] Encounter Details Date Type Department Care Team (Late st Contact Info) Description 12/19/2024 Orders Only External Location 800 [place] [phone] Provider, External Social History Tobacco Use Types [...] [facility] [place] [address] Sari Murry [facility] [address] [place] [address] 07/30/2025 9:30 AM EDT Office Visit [facility] [address] [facility], 2nd [place] [phone] Parish Lou MD [address] [facility] Sari Murry [address] [address] documented as of this encounter [...] on filedocumented in this encounter Care Teams Medical Sonographer Relationship Specialty Start Date End Date Quinten Anderson MD [address] [place] [address] #1 [address]1 [place] [address] PCP - General 09/10/20 documented as of this encounter
--- OUTSIDE RECORDS SUMMARY | 2025-02-19 14:56 | XMS_ITS | Encounter Summary ---
Author Organization Healthcare Address [address] [place] [address] Care Team Providers Care Ironworker Apprentice Shop Name Role Phone Quinten Anderson MD Primary Care Provider [phone] Encounter Details Date Type Department Care Team (Late st Contact Info) Description 01/08/2025 Orders Only External Location [address] [place] [phone] Provider, External Social History Tobacco Use [...] [facility] [place] [address] Sari Murry [facility] 800 [place] [address] 07/30/2025 9:30 AM EDT Office Visit [facility] 740 [facility], 2nd [place] [address] Parish Lou MD 800 [facility] Sari Murry [address] [address] documented as of this encounter [...] on filedocumented in this encounter Care Teams Ironworker Apprentice Shop Relationship Specialty Start Date End Date Quinten Anderson MD [address] [place] [address] #1 #1 [place] [address] PCP - General 09/10/20 documented as of this encounter
--- OUTSIDE RECORDS SUMMARY | 2025-02-19 14:57 | XMS_ITS | Clinical Summary ---
Author Organization [facility] Address [address] [place] [address] Care Team Providers Care Automotive Instructor Name Role Phone Unavailable Primary Care Provider [...]
--- OUTSIDE RECORDS SUMMARY | 2025-02-19 14:58 | XMS_ITS | Data Portability ---
Author Organization [facility] Address [address] [facility] [address] [place] [address] Assessment Encounter Date Assessment Date Assessment LastModified by Organization Details LastModified Time 08/26/2018 08/26/2018 Mrs. Christiansen is a 72-year-old female with right carpal tunnel syndrome, verified on EMG/nerve conduction studies. We discussed a right carpal tunnel release to be performed at the outpatient surgery center. We discussed the risks and benefits of the operation. This will be performed under local anesthesia and sedation. She will speak with Grace, our surgery coordinator, and find a date for surgery. [email or web address] Not available 08/26/2018 13:11:35 09/20/2018 09/20/2018 Pt is S/P Right CTR. Here for suture removal. Incision is well healed. Sutures were removed. Pt tolerated procedure well. [email or web address] Not available 09/20/2018 14:07:12 Plan of Treatment Reminders Order Date Submit Date Provider Last Modified By Organization Details Last Modified Time Details Appointments None record ed. Lab None record ed. Referral None record ed. Procedures None record ed. Surgeries None record ed. Imaging None record ed. Medication Orders None record ed. Patient TargetsNo targets recorded. Patient InstructionsNo instructions recorded. Reason for Referral None Reported. Results Created Date Observation Date Name Description Value Unit Range Abnormal Flag Note LastModifiedBy Organization Detail LastModifiedTime 08/24/19 19 06/17/2018 elect romyo gram + nerve condu ction study No observ ation record ed. BARCODE Not Available 2018 11:20:07 Result Notes None recorded. Medical Equipment None Reported. Allergies No known drug allergies Medications Name Sig Start Date Stop Date Status Note LastModified by Organization Details LastModified Time acetaminophen 300 mg-codeine 30 mg tablet Take 1 tablet every 6 hours by oral route as needed. active Not Available Not Available No t Available levothyroxine 75 mcg tablet active Not Available Not Availabl e Not Available prednisone 10 mg tablets in a dose pack active Not Available Not Available No t Available Vitals Date Recorded Body height Body mass index (BMI) Body weight Systolic And Diastolic Provider Name and Address Organization Details Last Updated DateTime 08/26/2018 167.64 cm 29.1 kg/m2 32845.63 g 122/82 mm[Hg] Kamrynbrendan BargerReyes [facility] 08/26/2018 13:05:29 Social History Question Answer Notes LastModified by Organizat ion Details LastModified Time Tobacco Smoking Status Never Smoker Kamrynbrendan BargerReyes [facility] 08/26/2018 13:04:48 What Was The Date Of Your Most Recent Tobacco Screening? 08/26/2018 Information n ot available 06/17/2019 Sex: Unknown Functional Status None recorded. Mental Status None recorded. Family History Relationship Description Onset Age of this Age Resolved Age Notes LastModified by Organization Details LastModified Time Unspecified Relation Malignant neoplastic disease [email or web address] Not available 08/26 13:04:33 Unspecified Relation Diabetes mellitus [email or web address] Not available 08/26 13:04:45 Medical History Condition Response Cancer Y Thyroid Disorder Y Gynecological HistoryNo gynecological history recorded. Obstetrics History GPAL:G 0 P 0 0 0 0 Past Encounters Encounter ID Performer Location Encounter Start Date Encounter Closed Date Diagnosis/Indication Diagnosis SNOMED-CT Code Diagnosis ICD10 Code Diagnosis IMO Codes Diagnosis Note [id number] DIEGO BENITEZ MD [facility] [address] [place] [address] 08/26/2018 11:44:08 08/27/2018 15:17:56 Carpal tunnel syndrome of right wrist 1516431247 29580 G56.01 [id number] DIEGO BENITEZ MD SURGERY SCHEDULE [address] [place] [address] 09/06/2018 10:35:19 09/06/2018 10:36:44 [id number] DIEGO BENITEZ MD [facility] [address] [address] 09/20/2018 11:05:14 09/20/2018 14:07:43 Health Concerns Section Related Observation LastModified by Organization Detai ls LastModified Time None Recorded Concern Status LastModified by Organization Details LastModified Time None Recorded Advance Directives Directive None Recorded Payers Insurance Date Sequence Insurance Name Policy Number Policy Macdonald Covered Member ID Macdonald Member ID Guarantor Name 03/24/2020 1 [place]ICARE[place] Liza Christiansne [id number] Liza Christiansen 09/17/2018 2 FOR LIFE ( - MEDICARE SUPPLEMENT) Liza Christiansen [id number] Liza Christiansen Notes Date Note Type Note Provider Name and Address Organization Details Recorded Time 08/26/2018 text/html Mrs. Christiansen is a 72-year-old female with a history of the left sided carpal tunnel release, who presents now 3-4 months of intense right sided hand pain. She underwent an EMG that verified carpal tunnel syndrome. She has difficulty sleeping at night. The pain is 5 out of 10 and made worse with using her right hand. She describes numbness, tingling and weakness. DIEGO BENITEZ MD [address] [place], [address], [facility] 08/26/2018 13:11:50 OBGyn Episode No OBEpisode recorded.
--- OUTSIDE RECORDS SUMMARY | 2025-02-19 14:58 | XMS_ITS | Encounter Summary ---
Author Organization [facility] Address [address] [place] [address] Care Team Providers Care Salon Professional Name Role Phone Quinten Anderson MD Primary Care Provider [phone] Encounter Details Date Type Department Care Team (Late st Contact Info) Description 01/22/2025 Telephone PAV [address] [place] [phone] Liudmila Bravo, RN Social History Tobacco Use [...] Description 07/30/2025 8:00 AM EDT Appointment PAV [address] [place] [address] 07/30/2025 9:30 AM EDT Office Visit [facility] [address] [facility], 2nd [place] [address] Parish Lou MD 800 [facility] [address] [place] [phone] documented as of this encounter Visit Diagnoses Not on filedocumented in this encounter Care Teams Salon Professional Relationship Specialty Start Date End Date Quinten Anderson MD [address] [place] [address] #1 #1 [place] [address] PCP - General 09/10/20 documented as of this encounter
[2025-02-19 18:22] LABS: Albumin Level 3.8 g/dl (3.5-5.0); Chloride 104 mmol/L (98-107); Potassium 4.0 mmoL/L (3.5-5.1); Sodium 136 mmol/L (136-145)
[2025-02-19 18:25] LABS: Alanine Aminotransferase 11 U/L (12-78); Albumin/Globulin Ratio 1.3 (1.1-1.8); Alkaline Phosphatase 134 U/L (38-126); Anion Gap 9.0 mEq/L (5-15); Aspartate Amino Transferase 20 U/L (14-36); Bilirubin,Total 0.3 mg/dl (0.2-1.3); Blood Urea Nitrogen 11 mg/dl (7-17); Carbon Dioxide 27 mmol/L (22.0-30.0); Creatinine,Serum 0.90 mg/dl (0.52-1.04); Estimated Glomerular Filt Rate 61 ml/min (>60); GFR (African American) 73 ML/MIN (>60); Globulin 2.9 g/dL (1.3-3.2); Total Protein,Serum 6.7 g/dl (6.3-8.2)
[2025-02-19 18:26] LABS: Calcium 8.7 mg/dl (8.4-10.2); Glucose 82 mg/dl (74-100)
== END 2025-02-19 23:59 | disposition home or self-care (01) ==
LOC: LAB 14:18
PROVIDERS: PCP Family Medicine; Visit Provider Internal Medicine Medical Oncology
DX: C34.12 Malignant neoplasm of upper lobe, left bronchus or lung (principal)
CPT/HCPCS: 36415; 80053; 85025

== ENCOUNTER 2025-03-03 10:08 | Outpatient (CLI) | payer MEDICARE, OTHER, SELFPAY ==
--- OUTSIDE RECORDS SUMMARY | 2025-01-06 09:00 | XMS_ITS | Encounter Summary ---
Author Organization [facility] Address [address] [place] [address] Care Team Providers Care Briar Shop Supervisor Name Role Phone Quinten Anderson MD Primary Care Provider [phone] Encounter Details Date Type Department Care Team (Latest Contact Info) Description 01/06/2025 10:00 AM EDT - 01/06/2025 10:59 AM EDT Hospital Encounter PAV [address] [address] Abnormal findings on diagnostic imaging of breast Discharge Disposition: Home or Self Care Social History Tobacco Use Types Packs/Day Years Used Date Smoking Tobacco: Unknown Tobacco Cessation:Counseling Given: Not Answered Comments No Sex and Gender Information Value Date Recorded Sex Assigned at Not on file Legal Sex Female 8:19 PM EDT Gender Identity Not on file Sexual Orientation Not on file documented as of this encounter Medications at Time of Discharge Medication Sig Dispense Quantity Refills Last Filled Start D ate End Date albuterol 108 (90 Base) MCG/ACT inhaler 12/08/2024 amLODIPine (Norvasc) 5 MG tablet 12/02/2024 cilostazol (Pletal) 50 MG tablet 11/02/2024 clopidogrel (Plavix) 75 MG tablet 12/25/2024 mirtazapine (Remeron) 15 MG tablet 07/01/2024 documented as of this encounter Plan of Treatment Upcoming Encounters Date Type Department Care Team (Late st Contact Info) Description 07/30/2025 8:00 AM EDT Appointment PAV [facility] [address] [place] [address] 07/30/2025 9:30 AM EDT Office Visit [facility] [place] [address] [facility] [place] [address] Parish Lou MD [address] [facility] [address] [place] [address] documented as of this encounter Procedures Procedure Name Priority Date/Time Associated Diagnosis Comments MAMMOGRAPHY BREAST DIAGNOSTIC TOMOSYNTHESIS BILATERAL Routine 01/06/2025 10:55 AM EDT Abnormal findings on diagnostic imaging of breast documented in this encounter Results * (ABNORMAL) Mammography Breast Diagnostic Tomosynthesis Bilateral (01/06/2025 10:55 AM EDT) Anatomical Region Laterality Modality Breast Bilateral Mammography, Oth er Impressions 01/06/2025 3:17 PM EDT Right Breast BI-RADS Code: BI-RADS 2, Benign finding. Left Breast BI-RADS Code: BI-RADS 4, Suspicious finding. RECOMMENDATIONS: Right Breast Recommendations: Routine Screening Mammogram in 1 Year Left Breast Recommendations: Ultrasound Guided Breast Biopsy for finding 2. Since finding 3 is just posterior to finding 2, pathology of finding 2 will help guide management. CRITICAL RESULT: No. COMMUNICATION: The results and recommendations were discussed with the patient and a printed lay language version of the imaging report was given to the patient at the time of the visit. The mammogram was read with the assistance of CAD and tomosynthesis. Drafted by Jeff Rajan MD on 01/06/2025 11:35 AM Final report signed by Jeff Rajan MD on 01/06/2025 3:17 PM Narrative 01/06/2025 3:17 PM EDT CLINICAL INDICATION: Patient presents following partially visualized left breast mass on outside hospital CT chest. TECHNIQUE: Bilateral diagnostic mammogram was performed. Computer assisted detection was used in the interpretation of this study. Tomosynthesis was used in the interpretation of this study. Multiplanar, lr scale directed ultrasound of left breast and bilateral axillae with limited Doppler vascular ultrasound was performed. Elastography was performed. COMPARISON: None. Bilateral Breast Density: There are scattered areas of fibroglandular density. FINDINGS: Mammogram and ultrasound Findings: Right breast: No suspicious masses, calcifications or areas of architectural distortion are evident. Prominent right axillary tail lymph nodes. Ultrasound was done to further evaluate. Finding 1: Focused ultrasound of the right axilla demonstrates 4 normal appearing lymph nodes. This correlates with the mammogram. BI-RADS 2 Left breast: Finding 2: High density retroareolar mass measures approximately 8 cm. Ultrasound was done to further evaluate. Focused ultrasound of the left breast demonstrates a heterogeneous mass abutting the nipple at 3:00, 4 cm from the nipple measuring 9.2 cm in greatest dimension with some internal vascularity and mixed Elastography with associated skin thickening. The mass is palpable and there is an opening on the skin in the areola region inferiorly. This correlates with the finding on mammogram. BI-RADS 4C Finding 3: An additional heterogeneous area at 3:00, 11 cm from the nipple measures 8 x 6 x 9 mm, avascular and soft on Elastography. This may have a correlate on mammogram and is located just posterior to the aforementioned mass. BI-RADS 4 Finding 4: Focused ultrasound of the left axilla demonstrates 3 normal appearing lymph nodes. BI-RADS 2 Procedure Note Jeff Rajan MD - 01/06/2025 CLINICAL INDICATION: [facility] presents [facility] TECHNIQUE: Bilateral diagnostic mammogram was performed. Computer assisted detection was used in the interpretation of this study.Tomosynthesis was used in the interpretation of this study. Multiplanar, lr scale directed ultrasound of left breast and bilateralaxillae with limited Doppler vascular ultrasound was performed.Elastography was performed. COMPARISON: None. Bilateral Breast Density: There are scattered areas of fibroglandulardensity. FINDINGS: Mammogram and ultrasound Findings: Right breast: No suspicious masses, calcifications or areas of architectural distortionare evident. Prominent right axillary tail lymph nodes. Ultrasound wasdone to further evaluate. Finding 1: Focused ultrasound of the right axilla demonstrates 4 normalappearing lymph nodes. This correlates with the mammogram. BI-RADS 2 Left breast: Finding 2: High density retroareolar mass measures approximately 8 cm.Ultrasound was done to further evaluate. Focused ultrasound of the left breast demonstrates a heterogeneous massabutting the nipple at 3:00, 4 cm from the nipple measuring 9.2 cm ingreatest dimension with some internal vascularity and mixed Elastographywith associated skin thickening. The mass is palpable and there is anopening on the skin in the areola region inferiorly. This correlates withthe finding on mammogram. BI-RADS 4C Finding 3: An additional heterogeneous area at 3:00, 11 cm from the nipplemeasures 8 x 6 x 9 mm, avascular and soft on Elastography. This may have acorrelate on mammogram and is located just posterior to the aforementionedmass. BI-RADS 4 Finding 4: Focused ultrasound of the left axilla demonstrates 3 normalappearing lymph nodes. BI-RADS 2 IMPRESSION: Right Breast BI-RADS Code: BI-RADS 2, Benign finding. Left Breast BI-RADS Code: BI-RADS 4, Suspicious finding. RECOMMENDATIONS: Right Breast Recommendations: Routine Screening Mammogram in 1 Year Left Breast Recommendations: Ultrasound Guided Breast Biopsy for finding2. Since finding 3 is just posterior to finding 2, pathology of finding 2will help guide management. CRITICAL RESULT: No. COMMUNICATION: The results and recommendations were discussed with the patient and aprinted lay language version of the imaging report was given to thepatient at the time of the visit. The mammogram was read with theassistance of CAD and tomosynthesis. Drafted by Jeff Rajan MD on 01/06/2025 11:35 AM Final report signed by Jeff Rajan MD on 01/06/2025 3:17 PM Quinten Anderson MD IMG BI PROCEDURES Final Result documented in this encounter Visit Diagnoses Diagnosis Abnormal findings on diagnostic imaging of breast Other (abnormal) findings on radiological examination of breast documented in this encounter Care Teams Briar Shop Supervisor Relationship Specialty Start Date End Date Quinten Anderson MD [address] [place] [address] #1 #1 [place] [id number] PCP - General 09/10/20 documented as of this encounter
--- OUTSIDE RECORDS SUMMARY | 2025-01-06 10:00 | XMS_ITS | Encounter Summary ---
Author Organization [facility] Address [address] [place] [address] Care Team Providers Care Music Engraver Name Role Phone Quinten Anderson MD Primary Care Provider [phone] Encounter Details Date Type Department Care Team (Latest Contact Info) Description 01/06/2025 11:00 AM EDT - 01/06/2025 1:14 PM EDT Hospital Encounter PAV [address] [address] Abnormal findings on diagnostic imaging of breast Discharge Disposition: Home or Self Care Social History Tobacco Use Types Packs/Day Years Used Date Smoking Tobacco: Unknown Comments No Sex and Gender Information Value [...] Description 07/30/2025 8:00 AM EDT Appointment PAV [facility] [address] [place] [address] 07/30/2025 9:30 AM EDT Office Visit [facility] [address] [facility], 2nd [place] [address] Parish Lou MD [address] [facility] [address] [place] [address] documented as of this encounter Procedures Procedure Name Priority Date/Time Associated Diagnosis Comments US BREAST LIMITED LEFT Routine 01/06/2025 2:24 PM EDT Abnormal findings on diagnostic imaging of breast documented in this encounter Results * (ABNORMAL) US Breast Limited Left (01/06/2025 2:24 PM EDT) Anatomical Region Laterality Modality Breast Left Ultrasound Impressions 01/06/2025 3:17 PM EDT Right Breast [...] presents following partially [facility] TECHNIQUE: Bilateral diagnostic mammogram was [...] breast documented in this encounter Care Teams Music Engraver Relationship Specialty Start Date End Date Quinten Anderson MD [address] [place] [address] #1 #1 [place] [address] PCP - General 09/10/20 documented as of this encounter
--- OUTSIDE RECORDS SUMMARY | 2025-01-06 12:15 | XMS_ITS | Encounter Summary ---
Author Organization Healthcare Address [address] [place] [address] Care Team Providers Care Student Success Advisor Name Role Phone Quinten Anderson MD Primary Care Provider [phone] Reason for Visit * Imaging (Routine) - Pending Review Specialty Diagnoses / Procedures Referred By Contac t Referred To Contact Radiology Diagnoses Abnormal findings on diagnostic imaging of breast Procedures US Axilla Right Quinten Anderson MD [address] [place] [address] #1 [address]1 [place] [phone] Phone: tel: fax: Referral ID Status Reason Start Date Expiration Date V isits Requested Visits Authorized [id number] Pending Review 01/06/2025 07/08/2026 1 1 Encounter Details Date Type Department Care Team (Latest Contact Info) Description 01/06/2025 1:15 PM EDT - 01/06/2025 11:59 PM EDT Hospital Encounter [facility] [address] [address] Abnormal findings on diagnostic imaging of breast [...] Description 07/30/2025 8:00 AM EDT Appointment P[facility] [place] [facility] [address] [place] [address] 07/30/2025 9:30 AM EDT Office Visit PAV Breast [facility] [address] [facility], 2nd [place] [address] Parish Lou MD [address] [facility] [address] [place] [address] documented as of this encounter Procedures Procedure Name Priority Date/Time Associated Diagnosis Comments US AXILLA RIGHT Routine 01/06/2025 1:35 PM EDT Abnormal findings on diagnostic imaging of breast documented in this encounter Results * (ABNORMAL) US Axilla Right (01/06/2025 1:35 PM EDT) Anatomical Region Laterality Modality Breast Right Ultrasound Impressions 01/06/2025 3:17 PM EDT Right [...] presents following [facility] TECHNIQUE: Bilateral diagnostic mammogram [...] breast documented in this encounter Care Teams Student Success Advisor Relationship Specialty Start Date End Date Quinten Anderson MD [address] [place] [address] #1 #1 [place] [address] PCP - General 09/10/20 documented as of this encounter
--- OUTSIDE RECORDS SUMMARY | 2025-01-15 12:51 | XMS_ITS | Encounter Summary ---
Author Organization Healthcare Address [address] [place] [address] Care Team Providers Care Certified Surgical Assistant Name Role Phone Quinten Anderson MD Primary Care Provider [phone] Encounter Details Date Type Department Care Team (Latest Contact Info) Description 01/15/2025 1:51 PM EDT - 01/15/2025 2:26 PM EDT Hospital Encounter [facility] [address] [phone] Abnormal findings on diagnostic imaging of breast Discharge Disposition: Home or Self Care Social History Tobacco Use Types Packs/Day Years Used Date Smoking Tobacco: Unknown Comments No Sex and Gender Information Value Date Recorded Sex Assigned at Not on file Legal Sex Female 8:19 PM EDT Gender Identity Not on file Sexual Orientation Not on file documented as of this encounter Last Filed Vital Signs Vital Sign Reading Time Taken Comments Blood Pressure 144/68 01/15/2025 2:10 PM EDT Pulse 90 01/15/2025 2:10 PM EDT Temperature - - Respiratory Rate - - Oxygen Saturation 96% 01/15/2025 2:10 PM EDT Inhaled Oxygen Concentration - - Weight - - Height - - Body Mass Index - - documented in this encounter Medications at Time of Discharge Medication Sig Dispense Quantity Refills Last Filled Start D ate End Date albuterol 108 (90 Base) MCG/ACT inhaler 12/08/2024 amLODIPine (Norvasc) 5 MG tablet 12/02/2024 cilostazol (Pletal) 50 MG tablet 11/02/2024 clopidogrel (Plavix) 75 MG tablet 12/25/2024 mirtazapine (Remeron) 15 MG tablet 07/01/2024 documented as of this encounter Miscellaneous Notes * Post-Procedure Note - Nuzhat Nicole RN - 01/15/2025 3:00 PM EDT Patient: Liza Christiansen Date and Time: January 15, 2025 at 1445 Breast: left Procedure: u/s guided biopsy How long was pressure applied: 5 min Biopsy Site Check: soft, hemostasis achieved Procedure Tolerance: pt tolerated well Post Pain Assessment: 0 Bleeding or Hematoma:absent Additional Pressure Applied: n/a Post Procedure Care: dermabond to incision, keshav wrap X2 and ice applied, extra ice provided Radiologist that spoke with the patient: Discharged mode: ambulatory Discharge Instructions: re-enforced at time of dc Entered By: Nuzhat Nicole RN * Pre-Procedure Note - Nuzhat Nicole RN - 01/15/2025 3:00 PM EDT Patient: Liza Christiansen Date and Time: January 15, 2025 at 1410 Procedure Consent: obtained, Patient Pulse: 90 Patient Pain Level: 0 Patient Allergies: penicillins NSAIDS and Anti-coagulants: plavix O2 Sats Room Air: 96% Blood Pressure: 144/68 Discharge Instructions: provided, pt stated understanding, dc instructions sheet provided Timeout performed by the radiologist at the time of the procedure: completed, Patient Medications (see chart and HQA form) Medical History (see chart and HQA form) Surgical History (see chart and HQA form) Entered by: Nuzhat Nicole RN documented in this encounter Plan of Treatment Upcoming Encounters Date Type Department Care Team (Late st Contact Info) Description 07/30/2025 8:00 AM EDT Appointment [facility] [place] [phone] 07/30/2025 9:30 AM EDT Office Visit [facility] Breast [facility] [address] [facility], [address] [place] [address] Parish Lou MD [address] [facility] [address] [place] [address] documented as of this encounter Procedures Procedure Name Priority Date/Time Associated Diagnosis Comments US GUIDED BREAST BIOPSY LEFT Routine 01/15/2025 2:26 PM EDT Abnormal findings on diagnostic imaging of breast SURGICAL PATHOLOGY EXAM Routine 01/15/2025 2:10 PM EDT Abnormal findings on diagnostic imaging of breast documented in this encounter Results * US Guided Breast Biopsy Left (01/15/2025 2:26 PM EDT) Anatomical Region Laterality Modality Breast Left Ultrasound, Mamm ography Addenda Addendum by Yee Hernandez MD on 01/22/2025 11:44 AM EDT Addendum: ADDENDUM: Final Pathology: Target 1: A. 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 The communication will be documented in the patient's chart at the [facility] [place]. Drafted by Yee Hernandez MD on 01/22/2025 11:43 AM Final report signed by Yee Hernandez MD on 01/22/2025 11:44 AM Impressions 01/15/2025 2:45 PM EDT Successful ultrasound-guided core biopsy of the mass identified in the 3 o'clock position of the left breast 4 cm from the nipple. Histologic findings will be correlated. An addendum will be issued when pathology results become available. PATHOLOGY ASSESSMENT: Waiting for pathology. PATHOLOGY RECOMMENDATION: Waiting for pathology. CRITICAL RESULTS: No. COMMUNICATION: Per this written report. Drafted by Yee Hernandez MD on 01/15/2025 2:43 PM Final report signed by Yee Hernandez MD on 01/15/2025 2:45 PM Narrative 01/15/2025 2:45 PM EDT CLINICAL INDICATION: Suspicious ulcerated mass in the left breast COMPARISON: Previous studies were reviewed. TECHNIQUE: Ultrasound guided biopsy of the left breast. Post-procedure mammogram of the left breast was performed with tomosynthesis. Procedure: The procedure and its attendant risks, benefits, and alternatives were discussed. Potential risks include, but are not limited to, bleeding, hematoma, infection, migration of the tissue marker, and non-diagnostic/insufficient biopsy. Informed consent was obtained and placed upon the patient's medical record. The pre-procedure timeout was performed using two patient identifiers, confirming patient identity, and procedure to be performed. The correct side was marked. Target 1: There is a 92 mm mass identified in the 3 o'clock position of the left breast 4 cm from the nipple. The site for needle insertion was selected. The skin overlying the site was prepped sterilely and draped. Anesthesia was provided with 1% buffered lidocaine via a 25-gauge needle. A small dermatotomy was performed, utilizing lateral approach. A 12-gauge Marquee needle was introduced into the breast and advanced adjacent to the mass. Subsequently, a total of 5 specimens were obtained with 12-gauge core biopsy device. A U-shaped tissue marker was then deployed via the guide needle at the biopsy site for future monitoring. The needle was withdrawn. Pressure was applied to the biopsy site until all bleeding subsided. The incision was closed with Dermabond. The patient tolerated the procedure well with no immediate post-procedure complication. Post-biopsy instructions were reviewed with the patient, and a copy was given to the patient. The patient left the department in stable condition. Biopsy specimens were forwarded to the Pathology Department. FINDINGS: Post-procedure mammogram with tomosynthesis in the craniocaudal and mediolateral projections of left breast shows the U-shaped tissue marker is in the appropriate location. Left Breast Density: There are scattered areas of fibroglandular density. Procedure Note Yee Hernandez MD - 09/25/2025 CLINICAL INDICATION: Suspicious ulcerated mass in the left breast COMPARISON: Previous studies were reviewed. TECHNIQUE: Ultrasound guided biopsy of the left breast. Post-procedure mammogram of the left breast was performed withtomosynthesis. Procedure: The procedure and its attendant risks, benefits, and alternatives werediscussed. Potential risks include, but are not limited to, bleeding,hematoma, infection, migration of the tissue marker, andnon-diagnostic/insufficient biopsy. Informed consent was obtained andplaced upon the patient's medical record. The pre- procedure timeout wasperformed using two patient identifiers, confirming patient identity, andprocedure to be performed. The correct side was marked. Target 1: There is a 92 mm mass identified in the 3 o'clock position of the leftbreast 4 cm from the nipple. The site for needle insertion was selected. The skin overlying the sitewas prepped sterilely and draped. Anesthesia was provided with 1% bufferedlidocaine via a 25-gauge needle. A small dermatotomy was performed,utilizing lateral approach. A 12-gauge Marquee needle was introduced intothe breast and advanced adjacent to the mass. Subsequently, a total of 5specimens were obtained with 12-gauge core biopsy device. A U-shapedtissue marker was then deployed via the guide needle at the biopsy sitefor future monitoring. The needle was withdrawn. Pressure was applied to the biopsy site untilall bleeding subsided. The incision was closed with Dermabond. The patienttolerated the procedure well with no immediate post-procedurecomplication. Post-biopsy instructions were reviewed with the patient, and a copy wasgiven to the patient. The patient left the department in stablecondition. Biopsy specimens were forwarded to the Pathology Department. FINDINGS: Post-procedure mammogram with tomosynthesis in the craniocaudal andmediolateral projections of left breast shows the U-shaped tissue markeris in the appropriate location. Left Breast Density: There are scattered areas of fibroglandulardensity. IMPRESSION: Successful ultrasound-guided core biopsy of the mass identified in the 3o'clock position of the left breast 4 cm from the nipple. Histologic findings will be correlated. An addendum will be issued whenpathology results become available. PATHOLOGY ASSESSMENT: Waiting for pathology. PATHOLOGY RECOMMENDATION: Waiting for pathology. CRITICAL RESULTS: No. COMMUNICATION: Per this written report. Drafted by Yee Hernandez MD on 01/15/2025 2:43 PM Final report signed by Yee Hernandez MD on 01/15/2025 2:45 PM Quinten Anderson MD IMG BI PROCEDURES Edited Result - Final * Surgical Pathology Exam (01/15/2025 2:10 PM EDT) Case Report Surgical Pathology Case: [id number] Authorizing Provider: Quinten Anderson MD Collected: 01/15/2025 1410 Ordering Location: [facility] Received: 01/15/2025 1600 Pathologist: Marianela Ugarte MD Specimen: Breast, Left, Left breast solid mass 2:00-4:00 spans 8 cm 10:50 AM EDT [facility] Final Diagnosis A. 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 - TUMOR INVOLVES SEVEN OF SEVEN CORES (7/7) - SEE BIOMARKER CHECKLIST 10:50 AM EDT [facility] at 1050 EDT Synoptic Checklist Breast Biomarker Reporting Template BREAST BIOMARKER REPORTING TEMPLATE - All Specimens Protocol posted: 07/16/2024 Testing Performed on Specimen / Block Number(s): A1 Estrogen Receptor (ER) Status: Positive (greater than 10% of cells demonstrate nuclear positivity) Percentage of Cells with Nuclear Positivity: 100 % Average Intensity of Staining: Strong (3+) Progesterone Receptor (PgR) Status: Positive Percentage of Cells with Nuclear Positivity: 91-100% Average Intensity of Staining: Moderate (2+) HER2 by Immunohistochemist ry (IHC) Status: Negative (Score 1+) : Incomplete membrane staining that is faint / barely perceptible and in greater than 10% of tumor cells Comment(s) on HER2 IHC Results: In the GALO-Breast 04 and 06 trials, HER2 low was considered IHC Score 1+ or 2+ / ELOY negative, and HER2 ultralow was HER2 IHC Score of 0 (pattern 0+) with membrane staining that is incomplete and faint / barely perceptible in less than or equal to 10% of tumor cells. Breast cancers with these staining patterns may be eligible for treatment with trastuzumab-deruxt ecan in the metastatic setting (but those with no staining, IHC 0, are currently excluded). METHODS Cold Ischemia and Fixation Times: Meet requirements specified in latest version of the ASCO / CAP Guidelines Fixative: Formalin ER Testing Methodology: ER Test Type: Food and Drug Administration (FDA) cleared (test / vendor): Nekoma ER Primary Antibody: SP1 PgR Testing Methodology: PgR Test Type: Food and Drug Administration (FDA) cleared (test / vendor): [employer]ekoma PgR Primary Antibody: 1E2 HER2 IHC Testing Methodology: HER2 IHC Test Type: Food and Drug Administration (FDA) cleared (test / vendor): [employer]oma HER2 IHC Primary Antibody: 4B5 Image Analysis: Not performed 5 10:50 AM EDT [facility] Clinical Information R92.8 - Abnormal findings on diagnostic imaging of breast [ICD-10-CM] 10:50 AM EDT [facility] Special and Immunohistochemical Stains Special Stain: There are no tasks to display for the given criteria. IHC: A1-4 ER Quantitative (%) A1-5 [place] (Progesterone) Quantitative (%) A1-6 HER2/PALMER Quantitative A1-7 HER2 FISH Extra Slide A1-8 HER2 FISH Extra Slide A1-9 HER2 FISH Extra Slide All controls show appropriate reactivity. All immunohistochemist ry, in situ hybridization, and histochemical tests were developed by and are performed at the [facility], [address] [place] [address]. All tests reported here, except those addressing HER2 (breast) and PD-L1 expression as predictive markers, have not been cleared by or approved by the US Food and Drug Administration (FDA). The FDA has determined that such clearance or approval is not necessary. The laboratory is regulated under CLIA as qualified to perform high-complexity testing. The tests are used for clinical purposes. They should not be regarded as investigational or for research. This assay has not been validated on decalcified tissues. Results should be interpreted with caution given the likelihood of false negativity on decalcified specimens. 5 10:50 AM EDT [facility] Gross Description A. LEFT BREAST SOLID MASS 2:00-4:00 SPANS 8 CM Received in formalin labeled Left breast solid mass 2:00-4:00 spans 8 cm , are 6 pink-potter to white-clear fibroadipose and mucoid tissue cores that range from 0.8 to 1.7 cm in length and up to 0.3 cm in diameter. Entirely submitted in cassettes A1 to A2. Cold Time: 1m Pat [place] 10:50 AM EDT [facility] Intradepartmental Consultation with Agreement This case was seen in consultation with Dr. Chacon, who concurs with the above diagnosis. 10:50 AM EDT [facility] Note: A resident was involved in the service. I attest I examined the relevant preparations for the specimens and confirmed the diagnosis or interpretation. 10:50 AM EDT [facility] Tissue Left breast structure / Unknown 01/15/2025 2:10 PM EDT 01/15/2025 4:00 PM EDT us Quinten Anderson MD LAB PATHOLOGY ORDERABLES Final Result [facility] [address] [place] [address] documented in this encounter Visit Diagnoses Diagnosis Abnormal findings on diagnostic imaging of breast Other (abnormal) findings on radiological examination of breast documented in this encounter Administered Medications Inactive Administered Medications - up to 3 most recent administrations Medication Order MAR Action Action Date Dose Rate Site lidocaine (Xylocaine) 1 % injection 8 mL 8 mL, Infiltration, Once, 1 dose, On Radha 01/15/25 at 1545, Routine, SignIndications:Abnormal findings on diagnostic imaging of breast Given 01/15/2025 2:20 PM EDT 8 mL Left Chest sodium bicarbonate 8.4 % injection 2 mEq 2 mEq, Subcutaneous, Once, 1 dose, On Radha 01/15/25 at 1545, Routine, SignIndications:Abnormal findings on diagnostic imaging of breast Given 01/15/2025 2:20 PM EDT 2 mEq Left Chest documented in this encounter Care Teams Certified Surgical Assistant Relationship Specialty Start Date End Date Quinten Anderson MD [address] [place] [address] #1 #1 PAIGE Michael [id number] PCP - General 09/10/20 documented as of this encounter
--- OUTSIDE RECORDS SUMMARY | 2025-01-15 13:27 | XMS_ITS | Encounter Summary ---
Author Organization [facility] Address [address] [place] [address] Care Team Providers Care Technical Agronomist Name Role Phone Quinten Anderson MD Primary Care Provider Encounter Details Date Type Department Care Team (Latest Contact Info) Description 01/15/2025 2:27 PM EDT - 01/15/2025 11:59 PM EDT Hospital Encounter [facility] [address] [phone] Abnormal findings on diagnostic imaging of breast [...] Description 07/30/2025 8:00 AM EDT Appointment [facility] [address] [place] [address] 07/30/2025 9:30 AM EDT Office Visit [facility] Breast [facility] [address] [facility], 2nd [place] [address] Parish Lou MD [address] [facility] [address] [place] [address] documented as of this encounter [...] documented in the patient's chart at the [facility] [place]. Drafted by Yee Hernandez MD on 01/22/2025 [...] breast documented in this encounter Care Teams Technical Agronomist Relationship Specialty Start Date End Date Quinten Anderson MD [address] [place] [address] #1 #1 PAIGE Michael [id number] PCP - General 09/10/20 documented as of this encounter
--- OUTSIDE RECORDS SUMMARY | 2025-01-29 10:00 | XMS_ITS | Encounter Summary ---
Author Organization Healthcare Address [address] [place] [address] Care Team Providers Care Driver License Reviewing Officer Name Role Phone Quinten Anderson MD Primary Care Provider [phone] Encounter Details Date Type Department Care Team (Late st Contact Info) Description 01/29/2025 11:00 AM EDT Office Visit [facility] [address] [facility]nd [place] [address] Parish Lou MD [address] [facility] Sari Murry [facility] [address] [place] [address] Malignant neoplasm of upper-outer quadrant of left breast in female, estrogen receptor positive (Primary Dx) Social History Tobacco Use Types Packs/Day Years Used Date Smoking Tobacco: Former Cigarettes Passive Smoke Exposure: Never Tobacco Cessation:Counseling Given: No Alcohol Use Standard Drinks/Week Comments Not Currently 0 (1 standard drink = 0.6 oz pur e alcohol) Comments No Sex and Gender Information Value Date Recorded Sex Assigned at Not on file Legal Sex Female 8:19 PM EDT Gender Identity Not on file Sexual Orientation Not on file documented as of this encounter Last Filed Vital Signs Vital Sign Reading Time Taken Comments Blood Pressure 154/79 01/29/2025 11:19 AM EDT Pulse 82 01/29/2025 11:19 AM EDT Temperature - - Respiratory Rate 17 01/29/2025 11:19 AM EDT Oxygen Saturation 100% 01/29/2025 11:19 AM EDT Inhaled Oxygen Concentration - - Weight 86.9 kg (191 lb 9.3 oz) 01/29/2025 11:19 AM EDT Height 165.1 cm (5' 5 ) 01/29/2025 11:19 AM EDT Body Mass Index 31.88 01/29/2025 11:19 AM EDT documented in this encounter Miscellaneous Notes * Progress Notes - Kassandra Castle MD - 01/29/2025 11:00 AM EDT Images from the original note were not included. Subjective DOS: 01/29/2025 CC: Patient is seen in consultation from Hugo Apodaca MD for L breast cancer. HPI This is a 79 y.o. female that presents with left breast mass. Mammography showed 8cm retroareolar mass at 3 o'clock 4cm from the nipple measuring 9.2cm on ultrasound. Ultrasound findings are concordant. Pathology returned IDC with mucinous features, G2, ER/MT+, Her2- with U clip left in place. Another lesion noted at 3 oclock 11cfn measuring [id number] which was biopsy proved to be a normal lymph node. Results Imaging CT chest: lymphadenopathy, recurrence of non-small cell lung cancer. Mammography and ultrasound: 9.2 cm subareolar mass at 3:00, IDC grade 2, ER/MT positive, HER2 negative. Axillary ultrasound: benign findings bilaterally, 3 normal lymph nodes on the left, 4 normal lymph nodes on the right. Testing Biopsy: left breast mass confirmed IDC grade 2, ER/MT positive, HER2 negative. History of Present Illness 79-year-old female with stage IIIA lung cancer and new ER+/MT+/HER2- IDC of the left breast, diagnosed 11/2024. Oncological and Treatment History: History of lung cancer with left-sided lung resection 20 years ago. In 11/2024, a CT chest revealedlymphadenopathy and recurrence of non-small cell lung cancer. An incidental left breast mass was noted. Mammography and ultrasound showed a 9.2 cm subareolar mass at 3:00. A biopsy confirmed IDC grade 2, ER/MT positive, HER2 negative. A U clip after stereobiopsy are in place. The patient is under Dr Karmen Apodaca's care for lung cancer and is considering chemoradiation followed by immunotherapy. There are no plans for surgery currently, but the patient wishes to discuss the timing between pathologies. The breast lesion is palpable and was noticed 2 months ago, draining, prompting an ER visit (no documentation). The wound is still open to the skin. The patient quit smoking 2 weeks ago and now smokes green tea. She previously smoked tobacco, quit for 10 years after initial lung cancer surgery and then returned to smoking. The patient is on aspirin and Plavix for unclear reasons, but denies stents. 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 The AAA was not repaired, only treated with blood thinners. PAST SURGICAL HISTORY: Left-sided lung resection 20 years ago. SOCIAL HISTORY Quit smoking tobacco 2 weeks ago, now smokes green tea. TREATMENT HISTORY: -DIAGNOSIS: left grade 2 invasive ductal carcinoma located at 2-4 oclock 4 cm from the nipple Cancer Staging Malignant neoplasm of overlapping sites of left breast in female, estrogen receptor positive Staging form: Breast, AJCC 8th Edition - Clinical stage from 01/29/2025: Stage IIA (cT3, cN0, cM0, G2, ER+, MT+, HER2-) - Signed by Parish Lou MD on 02/08/2025 Histopathologic type: Infiltrating duct carcinoma, NOS Stage prefix: Initial diagnosis Method of lymph node assessment: Clinical Histologic grading system: 3 grade system --Medical Oncologist: Not yet assigned --Radiation Oncologist: Not yet assigned --Plastic Surgeon: Not required --Genetics: not indicated -TREATMENT: Previous surgery for lung cancer 20 years ago, now planning chemoradiation followed by immunotherapy for recurrent NSCLC -IMAGING: I personally and independently reviewed the patients imaging which showed: Mammography and Ultrasound : 01/06/25: Finding 1: right axilla demonstrates 4 normal appearing lymph nodes. Left breast: Finding 2: retroareolar mass approximately 8 cm (hamilton). 3:00, 4 cm from the nipple measuring 9.2 cmin greatest dimension with some internal vascularity and mixed Elastography with associated skin thickening (US). The mass is palpable and there is an opening on the skin in the areola region inferiorly. Finding 3: An additional heterogeneous area at 3:00, 11 cm from the nipple measures 8 x 6 x 9 mm, avascular and soft on Elastography. Finding 4: left axilla demonstrates 3 normal appearing lymph nodes. IMPRESSION: Right Breast BI-RADS Code: BI-RADS 2, Benign finding. Left Breast BI-RADS Code: BI-RADS 4, Suspicious finding. RECOMMENDATIONS: Right Breast Recommendations: Routine Screening Mammogram in 1 Year Left Breast Recommendations: Ultrasound Guided Breast Biopsy for finding 2. Since finding 3 is justposterior to finding 2, pathology of finding 2 will help guide management. MRI: 01/08/25: No evidence of metastases to brain. PMHx: Past Medical History[1] PSHx: Surgical History[2] FINAL INSPECTOR SHUTTLE/Breast Hx: -Menarche: 18 -LMP: unknown -OCP hx: yes -G1@: 18 - -Breast feeding (m): no -Infertility treatments: no -Menopause: yes -HRT: no -Hyst/Ooph: yes -Previous Bx: no FHx: Family History[3] SHx: Social History[4] Employer: No address on file. Travel History Relevant International Travel History: Travel Screening Question Response Have you been in contact with someone who was sick? No / Unsure Do you have any of the following new or worsening symptoms? Bruising or bleeding;None of these Have you traveled internationally or domestically in the last month? No Travel History Travel since 12/30/24 No documented travel since 12/30/24 Relevant Domestic Travel History: N/A Immunizations Reviewed VACCINE / DOSE Flu Tetanus Pneumovax Shingles Allergies Penicillins Medications Current Medications[5] Review of Systems Constitutional: Negative for appetite change, fatigue, fever and unexpected weight change. HENT: Negative for sore throat. Eyes: Negative for eye problems. Respiratory: Negative for shortness of breath. Cardiovascular: Negative for chest pain. Gastrointestinal: Negative for abdominal pain. Genitourinary: Negative for dysuria. Musculoskeletal: Negative for back pain. Neurological: Negative for headaches. Objective PE: Visit Vitals BP (!) 154/79 (BP Location: Left arm, Patient Position: Sitting, BP Cuff Size: Adult long) Pulse 82 Resp 17 Ht 1.651 m (5' 5 ) Wt 86.9 kg (191 lb 9.3 oz) SpO2 100% BMI 31.88 kg/m?? OB Status Hysterectomy Smoking Status Former BSA 2 m?? Physical Exam Constitutional: General: She is not in acute distress. Appearance: She is not ill-appearing. HENT: Ears: Comments: Hard of hearing Eyes: Extraocular Movements: Extraocular movements intact. Cardiovascular: Rate and Rhythm: Normal rate. Pulmonary: Effort: Pulmonary effort is normal. No respiratory distress. Chest: Breasts: Right: Normal. No swelling, bleeding, inverted nipple, mass, nipple discharge, skin change or tenderness. Left: Mass present. No swelling, bleeding, inverted nipple or tenderness. Comments: Large palpable mass of left breast with spontaneous opening approximately 4-5oclock within distal areolar complex with serous drainage Musculoskeletal: General: Normal range of motion. Lymphadenopathy: Upper Body: Right upper body: No supraclavicular or axillary adenopathy. Left upper body: No supraclavicular or axillary adenopathy. Skin: General: Skin is warm. Neurological: Mental Status: She is alert and oriented to person, place, and time. Radiology (reviewed by ): Mammography and Ultrasound : 01/06/25: Finding 1: right axilla demonstrates 4 normal appearing lymph nodes. Left breast: Finding 2: retroareolar mass approximately 8 cm (hamilton). 3:00, 4 cm from the nipple measuring 9.2 cmin greatest dimension with some internal vascularity and mixed Elastography with associated skin thickening (US). The mass is palpable and there is an opening on the skin in the areola region inferiorly. Finding 3: An additional heterogeneous area at 3:00, 11 cm from the nipple measures 8 x 6 x 9 mm, avascular and soft on Elastography. Finding 4: left axilla demonstrates 3 normal appearing lymph nodes. IMPRESSION: Right Breast BI-RADS Code: BI-RADS 2, Benign finding. Left Breast BI-RADS Code: BI-RADS 4, Suspicious finding. RECOMMENDATIONS: Right Breast Recommendations: Routine Screening Mammogram in 1 Year Left Breast Recommendations: Ultrasound Guided Breast Biopsy for finding 2. Since finding 3 is justposterior to finding 2, pathology of finding 2 will help guide management. MRI: 01/08/25: No evidence of metastases to brain. Pathology (reviewed by ): Final Diagnosis (no units) Date/Time Value 01/15/2025 1410 A. 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 - TUMOR INVOLVES SEVEN OF SEVEN CORES (7/7) - SEE BIOMARKER CHECKLIST Synoptic Checklist (no units) Date/Time Value 01/15/2025 1410 Breast Biomarker Reporting Template BREAST BIOMARKER REPORTING [...] Intensity of Staining: Moderate (2+) HER2 by Immunohistochemistry (IHC) Status: Negative (Score 1+) : Incomplete [...] patterns may be eligible for treatment with trastuzumab-deruxtecan in the metastatic setting (but those with no staining, IHC 0, are currently excluded). METHODS Cold Ischemia and Fixation Times: Meet requirements specified in latest version of the ASCO / CAP Guidelines Fixative: Formalin ER Testing Methodology: ER Test Type: Food and Drug Administration (FDA) cleared (test / vendor): [place] [facility] Primary Antibody: SP1 PgR Testing Methodology: PgR Test Type: Food and Drug Administration (FDA) cleared (test / vendor): [place] PgR Primary Antibody: 1E2 HER2 IHC Testing Methodology: HER2 IHC Test Type: Food and Drug Administration (FDA) cleared (test / vendor): [place] HER2 IHC Primary Antibody: 4B5 Image Analysis: Not performed Assessment/Plan Patient is a 79 y.o. female presenting with left invasive ductal carcinoma, AWD. Cancer Staging Malignant neoplasm of overlapping sites of left breast in female, estrogen receptor positive Staging form: Breast, AJCC 8th Edition - Clinical stage from 01/29/2025: Stage IIA (cT3, cN0, cM0, G2, ER+, MT+, HER2-) - Signed by Parish Lou MD on 02/08/2025 Histopathologic type: Infiltrating duct carcinoma, NOS Stage prefix: Initial diagnosis Method of lymph node assessment: Clinical Histologic grading system: 3 grade system Assessment & Plan Invasive ductal carcinoma. 9 cm ER/MT positive, HER2 negative mass in the left breast. Recommend lumpectomy with nipple removal under general anesthesia, outpatient. Consider lymph node testing based on lung cancer progression. Start antiestrogen pill treatment. Contact the office or Dr. Apodaca for treatment adjustments if thecondition changes. Recurrent non-small cell lung cancer. Significantly reduced life expectancy. Plan chemoradiation followed by immunotherapy. Priority to lung cancer treatment first. Dr. Apodaca to initiate chemoradiation therapy. Smoking cessation. Quit smoking tobacco 2 weeks ago, now smoking green tea. Medication management. On aspirin and Plavix for unclear reasons. 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 Discussed risks, benefits, and alternatives of proposed treatment. Risks include potential wound healing issues post-radiation. Benefits include removal of breast mass and potential control of breastcancer. Alternatives like neoadjuvant therapy considered but the current plan deemed most appropriate. Follow up in 6 months. Assessment/Plan Ms. Liza Christiansen is a 79F with hx of recurrent NSCLC and recently diagnosed left breast invasive ductal carcinoma. She has plans to undergo chemoradiation followed by immunotherapy for her NSCLC. Today we discussed lung cancer takes priority in treatment before needing treatment for breast cancerdue to its effect on longevity of life. We explained that given her tumor is hormone receptor positive she would benefit from endocrine therapy with anastrozole which can be initiated neoadjuvantly. We discussed that after she completes her chemoradiation we will plan to see her approximately 6 months after with updated mammography/ultrasound. At this time we will discuss in more detail role for l umpectomy with do surgery as well. PLAN - continue following for chemoxrt for lung cancer - start endocrine therapy (anastrozole) - RTC 6 months with repeat imaging to discuss role for surgery Her chronic comorbid conditions that impact our treatment planning include: Tobacco abuse SCLC On asa/plavix for AAA vs femoral artery occlusion I spent 60 minutes during this encounter discussing the diagnosis of cancer, the imaging modalitiesrequired, and the cancer operation planned. Verbal consent was obtained to use ambient listening technology to assist in the documentation of the encounter: yes [1] Past Medical History: Diagnosis Date Coronary artery disease Disease of thyroid gland Hypertension Lung cancer (CMS/HCC) [2] Past Surgical History: Procedure Laterality Date HYSTERECTOMY LUNG SURGERY THYROID SURGERY [3] Family History Problem Relation Name Age of Onset Ovarian cancer Sister [4] Social History Tobacco Use Smoking status: Former Types: Cigarettes Passive exposure: Never Vaping Use Vaping status: Never Used Substance Use Topics Alcohol use: Not Currently Drug use: Never [5] Current Outpatient Medications Medication Sig Dispense Refill acetaminophen-codeine (Tylenol w/ Codeine #3) 300-30 MG tablet Take 1 tablet by mouth every 6 hoursas needed. albuterol 108 (90 Base) MCG/ACT inhaler amLODIPine (Norvasc) 5 MG tablet cilostazol (Pletal) 50 MG tablet clopidogrel (Plavix) 75 MG tablet levothyroxine (Synthroid, Levoxyl) 75 MCG tablet mirtazapine (Remeron) 15 MG tablet No current facility-administered medications for this visit. Cosigned by Parish Lou MD at 02/08/2025 9:17 PM EDT Associated attestation - Parish Lou MD - 02/08/2025 9:17 PM EDT I saw and evaluated the patient with the resident/fellow. I discussed the case with the resident/fellow and agree with the findings and plan as documented. documented in this encounter Plan of Treatment Upcoming Encounters Date Type Department Care Team (Late st Contact Info) Description 07/30/2025 8:00 AM EDT Appointment [facility] [place] [address] [facility] [address] [place] [address] 07/30/2025 9:30 AM EDT Office Visit [facility] [place] [address] [facility]nd [place] [address] Parish Lou MD [address] [facility] [address] [place] [address] Scheduled Orders Name Type Priority Associated Diagnoses Orde r Schedule Mammography Breast Diagnostic Tomosynthesis Bilateral Imaging Routine Malignant neoplasm of upper-outer quadrant of left breast in female, estrogen receptor positive Expected: 07/30/2025 (Approximate), Expires: 08/02/2026 documented as of this encounter Visit Diagnoses Diagnosis Malignant neoplasm of upper-outer quadrant of left breast in female, estrogen receptor positive- Primary documented in this encounter Additional Health Concerns Assessment Noted Time A fall risk assessment has been complete d for the patient 01/29/2025 11:19 AM EDT A Body Mass Index follow-up plan has been documented for the patient 02/08/2025 9:17 PM EDT documented as of this encounter Care Teams Driver License Reviewing Officer Relationship Specialty Start Date End Date Quinten Anderson MD [address] [place] [address] #1 #1 PAIGE Michael [id number] PCP - General 09/10/20 documented as of this encounter
--- OUTSIDE RECORDS SUMMARY | 2025-03-02 13:08 | XMS_ITS | Continuity of Care Document ---
Author Organization [facility] Phone Care Team Providers Care Glue Maker Bone Name Role Phone NO, DEFINED P Primary Care Unavailable JAILYN ELLIOTT Admitting JAILYN ELLIOTT Primary Attending YONG COLLIER Unavailable MEDICATIONS HOME MEDICATIONS Status RXNORM NDC Medication Dose Route Frequency Dates Comments Reported By Updated By Drug Treatment Unknown DISCHARGE MEDICATIONS Status RXNORM NDC Medication Dose Route Frequency Dates Dis pense Data Comments Physician Updated By No Discharge Medication Info rmation Available INPATIENT MEDICATIONS Status RXNORM NDC Medication Dose Route Frequency Rat e Quantity Dates Indication Dispense Data Comments Physician Updated By No Inpatient Medication Info rmation Available SOCIAL HISTORY SOCIAL HISTORY - Smoking Status SNOMED-CT Social History Element Description Effective Dates Offered Cessation Comment Updated By [id number] Smoking Status Unknown If Ever Smoked SOCIAL HISTORY - Gender Sex: Female SOCIAL HISTORY - Status : status i nformation is not available Intention in Next Year: intention information is not available SOCIAL HISTORY - Assessments Code System Description Status Date Value of Assessment Updated By Comment Assessment Information is no t available SOCIAL HISTORY - [place]oul[place] Affiliation [place] information is not av ailable SOCIAL HISTORY - Legal Sex Legal Sex information is not available SOCIAL HISTORY - Sexual Behavior Sexual Orientation Gender Identity SNOMED-CT Description SNO MED -CT Description Activity Level No of Partners Partner Type UpdatedBy Information is not available SOCIAL HISTORY - Occupation Occupation information is no t available HEALTH CONCERNS Problems Concern Status Health Concern problem infor mation not available. Smoking Status Status Years Used Consumed packs p er day Health Concern smoking histo ry information not available. Family History Concern Status Health Concern family histor y information not available. ENCOUNTERS ENCOUNTER INFORMATION Reason for Visit RADIATION Admission February 23, 2025 4:50:00 PM [place] [id number] [facility] [address] Discharge February 28, 2025 3:59:00 AM [facility] DISCHARGED TO HOME OR SELF CARE ENCOUNTER DIAGNOSES Notes information is not victor hugo ilable. Code System Diagnosis Onset Date Diagnosis information is not available. 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 [id number] on March 02, 2025 6:07:46 PM UT C34.12 ICD10 MALIGNANT NEOPLA SM OF UPPER LOBE, LEFT BRONCHUS OR LUNG [id number] on March 02, 2025 6:07:46 PM UT 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 [id number] on March 02, 2025 6:07:46 PM [facility] CARE TEAM Care Glue Maker Bone Role DEFINED NO Primary Care JAILYN ELLIOTT Admitting JAILYN ELLIOTT Primary Attending YONG COLLIER Referring CARE TEAM CARE preschool special education teacher Role on Team Location Telecom Status Start Date End Mikey e Updated By NO DEFINED PRIMARY C PCP normal February 12, 2025 1:10:38 PM [facility] February 28, 2025 3:59:00 AM [facility] [id number] on February 12, 2025 1:10:38 PM [facility] AMIRA Rg Referring normal February 12, 2025 1:10:37 PM [facility] February 28, 2025 3:59:00 AM [facility] [id number] on February 12, 2025 1:10:38 PM [facility] LEXI MAYORGA Attending normal February 12, 2025 1:10:37 PM [facility] February 28, 2025 3:59:00 AM [facility] [id number] on February 12, 2025 1:10:38 PM [facility] LEXI MAYORGA Admitting normal February 12, 2025 1:10:37 PM [facility] February 28, 2025 3:59:00 AM [facility] [id number] on February 12, 2025 1:10:38 PM [facility]
--- OUTSIDE RECORDS SUMMARY | 2025-03-03 10:16 | XMS_ITS | Encounter Summary ---
Author Organization Healthcare Address [address] [place] [address] Care Team Providers Care Board Setter Name Role Phone Quinten Anderson MD Primary Care Provider [phone] Encounter Details Date Type Department Care Team (Late st Contact Info) Description 12/15/2022 Orders Only External Location [address] [place] [address] Marty Hargrove MD [address] [facility] [address] [place] [address] Social History Tobacco Use Types Packs/Day Years [...] [facility] [place] [address] Sari Murry Building [address] [place] [address] 07/30/2025 9:30 AM EDT Office Visit [facility] [address] [facility], 2nd [place] [address] Parish Lou MD 800 [facility] Sari Murry [address] [place] [address] documented as of this encounter [...] on filedocumented in this encounter Care Teams Board Setter Relationship Specialty Start Date End Date Quinten Anderson MD [address] [place] [address] #1 [address]1 [place] [address] PCP - General 09/10/20 documented as of this encounter
--- OUTSIDE RECORDS SUMMARY | 2025-03-03 10:16 | XMS_ITS | Encounter Summary ---
Author Organization Healthcare Address [address] [place] [address] Care Team Providers Care General Administrator Name Role Phone Quinten Anderson MD Primary Care Provider [phone] Encounter Details Date Type Department Care Team (Late st Contact Info) Description 10/11/2022 Orders Only External Location [address] [place] [phone] Provider, External Social History Tobacco Use Types [...] [facility] [place] [address] Sari Murry [facility] 800 [place] [address] 07/30/2025 9:30 AM EDT Office Visit [facility] [address] [facility], 2nd [place] [phone] Parish Lou MD [address] [facility] [address] [address] documented as of this encounter [...] on filedocumented in this encounter Care Teams General Administrator Relationship Specialty Start Date End Date Quinten Anderson MD [address] [place] [address] #1 #1 [place] [address] PCP - General 09/10/20 documented as of this encounter
--- OUTSIDE RECORDS SUMMARY | 2025-03-03 10:16 | XMS_ITS | Encounter Summary ---
Author Organization Healthcare Address [address] [place] [address] Care Team Providers Care Field Supervisor Name Role Phone Quinten Anderson MD Primary Care Provider [phone] Encounter Details Date Type Department Care Team (Late st Contact Info) Description 11/10/2022 Orders Only External Location [address] [place] [phone] Provider, External Social History Tobacco Use Types [...] [facility] [place] [address] Sari Murry [facility] 800 [place] [address] 07/30/2025 9:30 AM EDT Office Visit [facility] [address] [facility], 2nd [place] [phone] Parish Lou MD [address] [facility] [address] [address] documented as of this encounter [...] on filedocumented in this encounter Care Teams Field Supervisor Relationship Specialty Start Date End Date Quinten Anderson MD [address] [place] [address] #1 #1 [place] [address] PCP - General 09/10/20 documented as of this encounter
--- OUTSIDE RECORDS SUMMARY | 2025-03-03 10:16 | XMS_ITS | Encounter Summary ---
Author Organization Healthcare Address [address] [place] [address] Care Team Providers Care Log Peeler Name Role Phone Quinten Anderson MD Primary Care Provider [phone] Encounter Details Date Type Department Care Team (Late st Contact Info) Description 11/22/2022 Orders Only External Location [address] [place] [address] Provider, External Social History Tobacco Use [...] [facility] [place] [address] Sari Murry [facility] 800 [place] [address] 07/30/2025 9:30 AM EDT Office Visit [facility] 740 [facility], 2nd [place] [address] Parish Lou MD 800 [facility] [address] [address] documented as of this encounter [...] on filedocumented in this encounter Care Teams Log Peeler Relationship Specialty Start Date End Date Quinten Anderson MD [address] [place] [address] #1 [address]1 [place] [address] PCP - General 09/10/20 documented as of this encounter
--- OUTSIDE RECORDS SUMMARY | 2025-03-03 10:16 | XMS_ITS | Encounter Summary ---
Author Organization Healthcare Address [address] [place] [address] Care Team Providers Care Research Engineer Name Role Phone Quinten Anderson MD Primary Care Provider [phone] Encounter Details Date Type Department Care Team [...] [facility] [address] [facility] 800 [place] [address] 07/30/2025 9:30 AM EDT Office Visit [facility] [address] [facility], 2nd [place] [address] Parish Lou MD 800 [facility] [address] Alexis [address] [place] [address] documented as of this encounter Visit Diagnoses Not on filedocumented in this encounter Care Teams Research Engineer Relationship Specialty Start Date End Date Quinten Anderson MD [address] [facility] [address]1 [address]1 [place] [address] PCP - General 09/10/20 documented as of this encounter
--- OUTSIDE RECORDS SUMMARY | 2025-03-03 10:16 | XMS_ITS | Encounter Summary ---
Author Organization [facility] Address [address] [place] [address] Care Team Providers Care Stock Shipper Name Role Phone Quinten Anderson MD Primary Care Provider [phone] Encounter Details Date Type Department Care Team (Late st Contact Info) Description 01/07/2025 Orders Only PAV [address] [place] [phone] Liudmila Bravo, RN Social History Tobacco Use [...] Description 07/30/2025 8:00 AM EDT Appointment PAV [address] [place] [address] 07/30/2025 9:30 AM EDT Office Visit [facility] 740 [facility], 2nd [place] [address] Parish Lou MD 800 [facility] [address] [phone] documented as of this encounter Visit Diagnoses Not on filedocumented in this encounter Care Teams Stock Shipper Relationship Specialty Start Date End Date Quinten Anderson MD [address] [place] [address] #1 #1 [place] [address] PCP - General 09/10/20 documented as of this encounter
--- OUTSIDE RECORDS SUMMARY | 2025-03-03 10:16 | XMS_ITS | Encounter Summary ---
Author Organization [facility] Address [address] [place] [address] Care Team Providers Care Practice Architect Name Role Phone Quinten Anderson MD Primary Care Provider Encounter Details Date Type Department Care Team (Late st Contact Info) Description 01/07/2025 Telephone PAV [address] 800 [place] [address] Liudmila Bravo, RN Social History Tobacco Use [...] 07/30/2025 8:00 AM EDT Appointment PAV [address] 800 [place] [address] 07/30/2025 9:30 AM EDT Office Visit [facility] 740 [facility], 2nd [place] [address] Parish Lou MD 800 [facility] 134 [place] [address] documented as of this encounter Visit Diagnoses Not on filedocumented in this encounter Care Teams Practice Architect Relationship Specialty Start Date End Date Quinten Anderson MD [address] [place] [address] #1 #1 [place] [address] PCP - General 09/10/20 documented as of this encounter
--- OUTSIDE RECORDS SUMMARY | 2025-03-03 10:16 | XMS_ITS | Encounter Summary ---
Author Organization Healthcare Address [address] [place] [address] Care Team Providers Care Account Strategist Name Role Phone Quinten Anderson MD Primary Care Provider [phone] Encounter Details Date Type Department Care Team (Late st Contact Info) Description 12/01/2024 Orders Only External Location 800 [place] [address] Provider, External Social History Tobacco [...] [facility] [place] [address] Sari Murry [facility] 800 [place] [address] 07/30/2025 9:30 AM EDT Office Visit [facility] 740 [facility], 2nd [place] [address] Parish Lou MD 800 [facility] Sari Murry [address] [address] documented as of this encounter [...] on filedocumented in this encounter Care Teams Account Strategist Relationship Specialty Start Date End Date Quinten Anderson MD [address] [place] [address] #1 [address]1 [place] [address] PCP - General 09/10/20 documented as of this encounter
--- OUTSIDE RECORDS SUMMARY | 2025-03-03 10:16 | XMS_ITS | Encounter Summary ---
Author Organization Healthcare Address [address] [place] [address] Care Team Providers Care Control Room Tender Name Role Phone Quinten Anderson MD Primary Care Provider [phone] Encounter Details Date Type Department Care Team [...] Center [facility] [place] [address] Sari Murry [facility] [address] [place] [address] 07/30/2025 9:30 AM EDT Office Visit [facility] 740 [facility], 2nd [place] [address] Parish Lou MD 800 [facility] [address] [address] documented as of this encounter Visit Diagnoses Not on filedocumented in this encounter Additional Health Concerns Assessment Noted Time A fall risk assessment has been complete d for the patient 01/29/2025 11:19 AM EDT A Body Mass Index follow-up plan has been documented for the patient 02/08/2025 9:17 PM EDT documented as of this encounter Care Teams Control Room Tender Relationship Specialty Start Date End Date Quinten Anderson MD [address] [place] [address] #1 [address]1 [place] [address] PCP - General 09/10/20 documented as of this encounter
--- OUTSIDE RECORDS SUMMARY | 2025-03-03 10:16 | XMS_ITS | Encounter Summary ---
Author Organization Healthcare Address [address] [place] [address] Care Team Providers Care Honeycomb Blanket Maker Name Role Phone Quinten Anderson MD Primary Care Provider [phone] Encounter Details Date Type Department Care Team (Late st Contact Info) Description 08/26/2024 Orders Only External Location 800 [place] [address] Provider, External Social History Tobacco [...] [facility] [place] [address] Sari Murry [facility] 800 [place] [address] 07/30/2025 9:30 AM EDT Office Visit [facility] 740 [facility], 2nd [place] [address] Parish Lou MD 800 [facility] [address] [address] documented as of this encounter [...] on filedocumented in this encounter Care Teams Honeycomb Blanket Maker Relationship Specialty Start Date End Date Quinten Anderson MD [address] [place] [address] #1 [address]1 [place] [address] PCP - General 09/10/20 documented as of this encounter
--- OUTSIDE RECORDS SUMMARY | 2025-03-03 10:16 | XMS_ITS | Encounter Summary ---
Author Organization Healthcare Address [address] [place] [address] Care Team Providers Care Brass Polisher Name Role Phone Quinten Anderson MD Primary Care Provider [phone] Encounter Details Date Type Department Care Team [...] [facility] [address] [facility] [address] [place] [address] 07/30/2025 9:30 AM EDT Office Visit [facility] 740 [facility], 2nd [place] [address] Parish Lou MD 800 [facility] [address] [place] [address] documented as of this encounter Visit Diagnoses Not on filedocumented in this encounter Care Teams Brass Polisher Relationship Specialty Start Date End Date Quinten Anderson MD [address] [facility] [address]1 [address]1 [place] [address] PCP - General 09/10/20 documented as of this encounter
--- OUTSIDE RECORDS SUMMARY | 2025-03-03 10:16 | XMS_ITS | Encounter Summary ---
Author Organization Healthcare Address [address] [place] [address] Care Team Providers Care Hat Sizer Name Role Phone Quinten Anderson MD Primary Care Provider [phone] Encounter Details Date Type Department Care Team (Late st Contact Info) Description 12/15/2022 Orders Only External Location 800 [place] [address] Provider, External Social History Tobacco Use Types [...] [facility] [place] [address] Sari Murry [facility] 800 [place] [address] 07/30/2025 9:30 AM EDT Office Visit [facility] 740 [facility], 2nd [place] [address] Parish Lou MD 800 [facility] [address] [address] documented as of this encounter [...] on filedocumented in this encounter Care Teams Hat Sizer Relationship Specialty Start Date End Date Quinten Anderson MD [address] [place] [address] #1 #1 [place] [address] PCP - General 09/10/20 documented as of this encounter
--- OUTSIDE RECORDS SUMMARY | 2025-03-03 10:16 | XMS_ITS | Clinical Summary ---
Author Organization Healthcare Address [address] [place] [address] Care Team Providers Care Cell Pourer Name Role Phone Quinten Anderson MD Primary Care Provider [phone] Allergies Active Allergy Reactions Criticality Noted Date [...] from 01/29/2025:Stage IIA(cT3, cN0, cM0, G2, ER+, ID+, HER2-) - Signed by Parish Lou MD on 02/08/2025 Encounters Date Type Department Care Team Description 02/03/2025 Travel 01/29/2025 11:00 AM EDT Office Visit [facility] 740 [facility], 2nd [place] [address] Parish Lou MD Malignant neoplasm of upper-outer quadrant of left breast in female, estrogen receptor positive (Primary Dx) 01/29/2025 Travel 01/22/2025 Telephone [facility] [address] [facility] [address] [place] [address] Liudmila Bravo, RN 01/15/2025 2:27 PM EDT - 01/15/2025 11:59 PM EDT Hospital Encounter [facility] [address] [facility] [address] [place] [address] Abnormal findings on diagnostic imaging of breast Discharge Disposition: Home or Self Care 01/15/2025 1:51 PM EDT - 01/15/2025 2:26 PM EDT Hospital Encounter [facility] [address] [facility] [address] [place] [address] Abnormal findings on diagnostic imaging of breast Discharge Disposition: Home or Self Care 01/15/2025 Travel 01/08/2025 Orders Only External Location 800 [place] [address] Provider, External 01/07/2025 Orders Only [facility] [address] [facility] [address] [place] [address] Liudmila Bravo, RN 01/07/2025 Telephone [facility] [address] [facility] [address] [place] [address] Liudmila Bravo, RN 01/07/2025 Telephone [facility] [address] [facility] [address] [place] [address] Liudmila Bravo, RN 01/06/2025 1:15 PM EDT - 01/06/2025 11:59 PM EDT Hospital Encounter [facility] [address] Mur[address] [facility] 800 [place] [address] Abnormal findings on diagnostic imaging of breast Discharge Disposition: Home or Self Care 01/06/2025 11:00 AM EDT - 01/06/2025 1:14 PM EDT Hospital Encounter [facility] [address] S[address] Mur[address] [facility] [address] [place] [address] Abnormal findings on diagnostic imaging of breast Discharge Disposition: Home or Self Care 01/06/2025 10:00 AM EDT - 01/06/2025 10:59 AM EDT Hospital Encounter [facility] [address] Murry [facility] 800 [place] [address] Abnormal findings on diagnostic imaging of breast Discharge Disposition: Home or Self Care 01/06/2025 Travel 12/22/2024 Telephone [facility] [address] S[address] Murry [facility] [address] [place] [address] Emily Pruitt 12/19/2024 Orders Only External Location 800 [place] [address] Provider, External 12/01/2024 Orders Only External Location 800 [place] [address] Provider, External from Last 3 Months Family [...] [facility] Care [facility] [address] Mur[address] Building [address] [place] [address] 07/30/2025 9:30 AM EDT Office Visit [facility] 740 [facility], 2nd [place] [address] Parish Lou MD 800 [facility] S[address] Murry [address] [place] [address] Health Maintenance Due Date Last [...] or (1 - 1-dose 75+ series) 2021 [id number] Vaccine (3 - season) 2024 04/08/2021, 07/07/2020 [...] documented in the patient's chart at the [facility]. Drafted by Yee Hernandez MD on 01/22/2025 [...] documented in the patient's chart at the [facility]. Drafted by Yee [...] PM EDT) Case Report Surgical Pathology Case: [id number] Authorizing Provider: Quinten Anderson MD Collected: 01/15/2025 1410 Ordering Location: [facility] Received: 01/15/2025 1600 Pathologist: Marianela Ugarte MD Specimen: Breast, Left, Left breast solid mass 2:00-4:00 spans 8 cm 5 10:50 AM EDT [facility] Final Diagnosis A. 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 Clinical Information R92.8 - Abnormal findings on diagnostic imaging of breast [ICD-10-CM] 5 10:50 AM EDT [facility] Special and Immunohistochemical Stains Special Stain: There are no tasks to display for the given criteria. IHC: A1-4 ER Quantitative (%) A1-5 ID (Progesterone) Quantitative (%) A1-6 HER2/PALMER Quantitative A1-7 HER2 FISH Extra Slide A1-8 HER2 FISH Extra Slide A1-9 HER2 FISH Extra Slide All controls show appropriate reactivity. All immunohistochemist ry, in situ hybridization, and histochemical tests were developed by and are performed at the [facility], [address] [place] [address]. All tests reported here, except those addressing [...] negativity on decalcified specimens. 10:50 AM EDT [facility] Gross Description A. LEFT BREAST [...] Time: 1m Pat Austin 10:50 AM EDT [facility] Intradepartmental Consultation with Agreement This case was seen in consultation with Dr. Chacon, who concurs with the above diagnosis. 10:50 AM EDT [facility] Note: A resident was involved in the service. I attest I examined the relevant preparations for the specimens and confirmed the diagnosis or interpretation. 10:50 AM EDT [facility] Tissue Left breast structure / Unknown 01/15/2025 2:10 PM EDT 01/15/2025 4:00 PM EDT us Quinten Anderson MD LAB PATHOLOGY ORDERABLES Final Result [facility] [address] [place] [address] * MR NEURO OUTSIDE IMAGES (01/08/2025 8:48 [...] following partially [facility] TECHNIQUE: Bilateral diagnostic [...] following partially [facility] TECHNIQUE: Bilateral diagnostic [...] following partially [facility] TECHNIQUE: Bilateral diagnostic [...] Insurance MEDICARE [facility] Care Teams Cell Pourer Relationship Specialty Start Date End Date Quinten Anderson MD [address] [place] [address] #1 #1 [place] [address] [facility] - General 09/10/20
--- OUTSIDE RECORDS SUMMARY | 2025-03-03 10:16 | XMS_ITS | Encounter Summary ---
Author Organization Healthcare Address [address] [place] [address] Care Team Providers Care Coil Winder Strap Name Role Phone Quinten Anderson MD Primary Care Provider [phone] Encounter Details Date Type Department Care Team (Late st Contact Info) Description 01/08/2025 Orders Only External Location [address] [place] [address] Provider, External Social History Tobacco Use [...] [facility] [place] [address] Sari Murry [facility] 800 [place] [address] 07/30/2025 9:30 AM EDT Office Visit [facility] 740 [facility], 2nd [place] [address] Parish Lou MD 800 [facility] Sari Murry [address] [address] documented as of this encounter [...] on filedocumented in this encounter Care Teams Coil Winder Strap Relationship Specialty Start Date End Date Quinten Anderson MD [address] [place] [address] #1 #1 [place] [address] PCP - General 09/10/20 documented as of this encounter
--- OUTSIDE RECORDS SUMMARY | 2025-03-03 10:16 | XMS_ITS | Encounter Summary ---
Author Organization Healthcare Address [address] [place] [address] Care Team Providers Care Switchboard Operator Helper Name Role Phone Quinten Anderson MD Primary Care Provider [phone] Encounter Details Date Type Department Care Team (Late st Contact Info) Description 01/07/2025 Telephone PAV [address] [address] Liudmila Bravo, RN Social History [...] wanting to hemanth biopsy. Please return call [phone]. States can call to hemanth w daughter or sone as well documented in this encounter Plan of Treatment Upcoming Encounters Date Type Department Care Team (Late st Contact Info) Description 07/30/2025 8:00 AM EDT Appointment PAV [address] [address] 07/30/2025 9:30 AM EDT Office Visit [facility] 740 [facility], 2nd [place] [address] Parish Lou MD 800 [facility] [address] [place] [address] documented as of this encounter Visit Diagnoses Not on filedocumented in this encounter Care Teams Switchboard Operator Helper Relationship Specialty Start Date End Date Quinten Anderson MD [address] [place] [address] #1 #1 [place] [address] PCP - General 09/10/20 documented as of this encounter
--- OUTSIDE RECORDS SUMMARY | 2025-03-03 10:16 | XMS_ITS | Encounter Summary ---
Author Organization Healthcare Address [address] [place] [address] Care Team Providers Care Pickers Material Handlers Name Role Phone Quinten Anderson MD Primary Care Provider [phone] Encounter Details Date Type Department Care Team [...] [facility] [place] [address] [facility] 800 [place] [address] 07/30/2025 9:30 AM EDT Office Visit [facility] [address] [facility], 2nd [place] [address] Parish Lou MD 800 [facility] [address] [address] documented as of this encounter Visit Diagnoses Not on filedocumented in this encounter Additional Health Concerns Assessment Noted Time A fall risk assessment has been complete d for the patient 01/29/2025 11:19 AM EDT A Body Mass Index follow-up plan has been documented for the patient 02/08/2025 9:17 PM EDT documented as of this encounter Care Teams Pickers Material Handlers Relationship Specialty Start Date End Date Quinten Anderson MD [address] [place] [address] #1 #1 [place] [address] PCP - General 09/10/20 documented as of this encounter
--- OUTSIDE RECORDS SUMMARY | 2025-03-03 10:17 | XMS_ITS | Clinical Summary ---
Author Organization [facility] Address [address] [place] [address] Care Team Providers Care Communications Equipment Operator Name Role Phone Unavailable Primary Care Provider [...]
--- OUTSIDE RECORDS SUMMARY | 2025-03-03 10:18 | XMS_ITS | Encounter Summary ---
Author Organization [facility] Address [address] [place] [address] Care Team Providers Care Signal Helper Name Role Phone Quinten Anderson MD Primary Care Provider [phone] Encounter Details Date Type Department Care Team (Late st Contact Info) Description 01/22/2025 Telephone PAV [address] [place] [phone] Liudmila Bravo, RN Social History Tobacco Use [...] Description 07/30/2025 8:00 AM EDT Appointment PAV [address] [place] [address] 07/30/2025 9:30 AM EDT Office Visit [facility] 740 [facility], 2nd [place] [address] Parish Lou MD 800 [facility] 134 [place] [address] documented as of this encounter Visit Diagnoses Not on filedocumented in this encounter Care Teams Signal Helper Relationship Specialty Start Date End Date Quinten Anderson MD [address] [place] [address] #1 #1 [place] [address] PCP - General 09/10/20 documented as of this encounter
--- OUTSIDE RECORDS SUMMARY | 2025-03-03 10:18 | XMS_ITS | Data Portability ---
Author Organization [facility] Address [address] [facility] [address] [place] [address] Assessment Encounter Date Assessment Date Assessment LastModified [...] Updated DateTime 08/26/2018 167.64 cm 29.1 kg/m2 82231.63 g 122/82 mm[Hg] Kamrynbrendan BargerReyes [facility] 08/26/2018 13:05:29 Social History Question Answer Notes LastModified by Organizat ion Details LastModified Time Tobacco Smoking Status Never Smoker Kamrynbrendan BargerReyes [facility] 08/26/2018 13:04:48 What Was The Date Of [...] ICD10 Code Diagnosis IMO Codes Diagnosis Note [id number] DIEGO BENITEZ MD NEUROSURG [facility] [address] [place] [address] 08/26/2018 11:44:08 08/27/2018 15:17:56 Carpal tunnel syndrome of right wrist [id number] 62501 G56.01 [id number] DIEGO BENITEZ MD SURGERY SCHEDULE [address] [place] [address] 09/06/2018 10:35:19 09/06/2018 10:36:44 [id number] DIEGO BENITEZ MD [facility]UROS[facility]G [facility] [address] [address] 09/20/2018 11:05:14 09/20/2018 14:07:43 Health Concerns Section Related Observation LastModified by Organization Detai ls LastModified Time None Recorded Concern Status LastModified by Organization Details LastModified Time None Recorded Advance Directives Directive None Recorded Payers Insurance Date Sequence Insurance Name Policy Number Policy Macdonald Covered Member ID Macdonald Member ID Guarantor Name 03/24/2020 1 [place] Liza Christiansen [id number] Liza Christiansen 09/17/2018 2 FOR LIFE ( - MEDICARE SUPPLEMENT) Liza Christiansen [id number] Liza Christiansen Notes Date Note Type Note [...] tingling and weakness. DIEGO BENITEZ MD [address] [place], [address], [facility] 08/26/2018 13:11:50 OBGyn Episode No OBEpisode recorded.
[2025-03-03] MEDS: LORATADINE 10MG TABLET 10 MG PO (10:30)
[2025-03-03] MEDS: FAMOTIDINE 20MG TABLET 20 MG PO (10:30)
[2025-03-03] MEDS: ONDANSETRON 4MG ODT 16 MG SL (10:30)
[2025-03-03] MEDS: DEXAMETHASONE 4MG TABLET 12 MG PO (10:30)
[2025-03-03 11:15] VITALS: BP 160/71; PULSE 79; RESP 18; O2SAT 98
[2025-03-03] MEDS: PACLITAXEL IV (11:15)
[2025-03-03] MEDS: DEXTROSE 5% IV (11:15)
[2025-03-03] MEDS: WATER IV (11:15)
[2025-03-03] MEDS: SODIUM CHLORIDE 0.9% 100ML BAG 100 ML IV (11:21)
[2025-03-03 11:30] VITALS: BP 125/73; PULSE 92; RESP 18; O2SAT 97
[2025-03-03 12:00] VITALS: BP 167/63; PULSE 88; RESP 18; O2SAT 97
[2025-03-03] MEDS: CARBOplatin 150 MG in 0.9 % SODIUM CHLORIDE 100 ML 230 MG IV (12:23)
[2025-03-03 12:25] VITALS: BP 160/57; PULSE 92; RESP 18; O2SAT 97
[2025-03-03 13:00] VITALS: RESP 18; O2SAT 97
[2025-03-03 13:05] VITALS: BP 168/76; PULSE 89; RESP 18; O2SAT 97
== END 2025-03-03 23:59 | disposition home or self-care (01) ==
PROVIDERS: PCP Family Medicine; Visit Provider Family Medicine
DX: C55 Malignant neoplasm of uterus, part unspecified (principal); Z51.11 Encounter for antineoplastic chemotherapy
CPT/HCPCS: 96413; 96415; 96417; J7060; J8540; J9045; J9267; Q0162

== ENCOUNTER 2025-03-10 11:05 | Outpatient (CLI) | payer MEDICARE, OTHER, SELFPAY ==
--- OUTSIDE RECORDS SUMMARY | 2025-01-15 12:51 | XMS_ITS | Encounter Summary ---
Author Organization Healthcare Address [address] [place] [address] Care Team Providers Care Securities Compliance Examiner Name Role Phone Quinten Anderson MD Primary Care Provider Encounter Details Date Type Department Care Team (Latest Contact Info) Description 01/15/2025 1:51 PM EDT - 01/15/2025 2:26 PM EDT Hospital Encounter [facility] Breast Care [facility] [address] [phone] Abnormal findings on diagnostic imaging of breast [...] AM EDT Appointment [facility] [place] [phone] 07/30/2025 9:30 AM EDT Office Visit [facility] Breast [facility] [address] [facility], [address]nd [place] [address] Parish Lou MD [address] [facility] [address] [place] [address] documented as of this encounter [...] documented in the patient's chart at the [facility] [place]. Drafted by Yee Hernandez MD on 01/22/2025 [...] PM EDT) Case Report Surgical Pathology Case: [id number] Authorizing Provider: Quinten Anderson MD Collected: 01/15/2025 1410 Ordering Location: [facility] Received: 01/15/2025 1600 Pathologist: Marianela Ugarte MD Specimen: Breast, Left, Left breast solid mass 2:00-4:00 spans 8 cm 10:[address] [facility] Final Diagnosis A. 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 at 1050 EDT Synoptic Checklist [...] Drug Administration (FDA) cleared (test / vendor): Yoe ER Primary Antibody: SP1 PgR Testing Methodology: PgR Test Type: Food and Drug Administration (FDA) cleared (test / vendor): Yoe PgR Primary Antibody: 1E2 HER2 IHC Testing Methodology: HER2 IHC Test Type: Food and Drug Administration (FDA) cleared (test / vendor): Yoe HER2 IHC Primary Antibody: 4B5 Image Analysis: Not performed 5 10:50 AM EDT [facility] Clinical Information R92.8 - Abnormal findings on diagnostic imaging of breast [ICD-10-CM] 10:50 AM EDT [facility] Special and Immunohistochemical Stains Special Stain: There are no tasks to display for the given criteria. IHC: A1-4 ER Quantitative (%) A1-5 [place] (Progesterone) Quantitative (%) A1-6 HER2/PALMER Quantitative A1-7 HER2 FISH Extra Slide A1-8 HER2 FISH Extra Slide A1-9 HER2 FISH Extra Slide All controls show appropriate reactivity. All immunohistochemist ry, in situ hybridization, and histochemical tests were developed by and are performed at the [facility], [address] [place] [address]. All tests reported here, except those addressing [...] on decalcified specimens. 5 10:50 AM EDT [facility] Gross Description A. LEFT BREAST SOLID MASS [...] Time: 1m Pat [place] 10:[address] [facility] Intradepartmental Consultation with Agreement This case was seen in consultation with Dr. Chacon, who concurs with the above diagnosis. 10:[address] [facility] Note: A resident was involved in the service. I attest I examined the relevant preparations for the specimens and confirmed the diagnosis or interpretation. 10:[address] [facility] Tissue Left breast structure / Unknown 01/15/2025 2:10 PM EDT 01/15/2025 4:00 PM EDT us Quinten Anderson MD LAB PATHOLOGY ORDERABLES Final Result [facility] [address] [place] [address] documented in this encounter Visit Diagnoses Diagnosis [...] Chest documented in this encounter Care Teams Securities Compliance Examiner Relationship Specialty Start Date End Date Quinten Anderson MD [address] [place] [address] #1 #1 PA[address] Michael [id number] PCP - General 09/10/20 documented as of this encounter
--- OUTSIDE RECORDS SUMMARY | 2025-01-15 13:27 | XMS_ITS | Encounter Summary ---
Author Organization [facility] Address [address] [place] [address] Care Team Providers Care Global Technical Writer Name Role Phone Quinten Anderson MD Primary Care Provider [phone] Encounter Details Date Type Department Care Team (Latest Contact Info) Description 01/15/2025 2:27 PM EDT - 01/15/2025 11:59 PM EDT Hospital Encounter [facility] [address] [phone] Abnormal findings on diagnostic imaging of breast [...] Description 07/30/2025 8:00 AM EDT Appointment [facility] [address] [place] [address] 07/30/2025 9:30 AM EDT Office Visit [facility] Breast [facility] [address] [facility], [address]nd [place] [address] Parish Lou MD [address] [facility] [address] [place] [address] documented as of this encounter Procedures Procedure Name Priority Date/Time Associated Diagnosis Comments MAMMOGRAPHY BREAST POST BIOPSY CLIP LEFT Routine 01/15/2025 2:38 PM EDT Abnormal findings on diagnostic imaging of breast documented in this encounter Results * Mammography Breast Post Biopsy Clip Left (01/15/2025 2:38 PM EDT) Anatomical Region Laterality Modality Breast Left Mammography Addenda Addendum by Yee Hernandez MD on [...] documented in the patient's chart at the [facility] [place]. Drafted by Yee Hernandez MD on 01/22/2025 [...] density. Procedure Note Yee Hernandez MD - 01/22/2025 CLINICAL INDICATION: Suspicious ulcerated mass in the [...] IMG BI PROCEDURES Edited Result - Final documented in this encounter Visit Diagnoses Diagnosis Abnormal findings on diagnostic imaging of breast Other (abnormal) findings on radiological examination of breast documented in this encounter Care Teams Global Technical Writer Relationship Specialty Start Date End Date Quinten Anderson MD [address] [place] [address] #1 #1 PAIGE Michael [id number] PCP - General 09/10/20 documented as of this encounter
--- OUTSIDE RECORDS SUMMARY | 2025-01-29 10:00 | XMS_ITS | Encounter Summary ---
Author Organization Healthcare Address [address] [place] [address] Care Team Providers Care Lead Software Test Engineer Name Role Phone Quinten Anderson MD Primary Care Provider [phone] Encounter Details Date Type Department Care Team (Late st Contact Info) Description 01/29/2025 11:00 AM EDT Office Visit [facility] [address] [facility] [place] [address] Parish Lou MD [address] [facility] S[address] Mur[address] [facility] [address] [place] [address] Malignant neoplasm of upper-outer quadrant [...] Pathology returned IDC with mucinous features, G2, ER/WI+, Her2- with U clip left in place. Another lesion noted at 3 oclock 11cfn measuring [id number] which was biopsy proved to be a normal lymph node. Results Imaging CT chest: lymphadenopathy, recurrence of non-small cell lung cancer. Mammography and ultrasound: 9.2 cm subareolar mass at 3:00, IDC grade 2, ER/WI positive, HER2 negative. Axillary ultrasound: benign findings bilaterally, 3 normal lymph nodes on the left, 4 normal lymph nodes on the right. Testing Biopsy: left breast mass confirmed IDC grade 2, ER/WI positive, HER2 negative. History of Present Illness 79-year-old female with stage IIIA lung cancer and new ER+/WI+/HER2- IDC of the left breast, diagnosed 11/2024. Oncological and Treatment History: History of lung cancer with left-sided lung resection 20 years ago. In 11/2024, a CT chest revealedlymphadenopathy and recurrence of non-small cell lung cancer. An incidental left breast mass was noted. Mammography and ultrasound showed a 9.2 cm subareolar mass at 3:00. A biopsy confirmed IDC grade 2, ER/WI positive, HER2 negative. 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 female presenting with left invasive ductal carcinoma, AWD. Cancer Staging Malignant neoplasm of overlapping sites of left breast in female, estrogen receptor positive Staging form: Breast, AJCC 8th Edition - Clinical stage from 01/29/2025: Stage IIA (cT3, cN0, cM0, G2, ER+, WI+, HER2-) - Signed by Parish Lou MD on 02/08/2025 Histopathologic type: Infiltrating duct carcinoma, NOS Stage prefix: Initial diagnosis Method of lymph node assessment: Clinical Histologic grading system: 3 grade system Assessment & Plan Invasive ductal carcinoma. 9 cm ER/WI positive, HER2 negative mass in the left [...] [facility] [place] [address] [facility] [address] [place] [address] 07/30/2025 9:30 AM EDT Office Visit [facility] [place] [address] [facility] [place] [address] Parish Lou MD [address] [facility] [address] [place] [address] Scheduled Orders Name Type Priority Associated Diagnoses [...] documented as of this encounter Care Teams Lead Software Test Engineer Relationship Specialty Start Date End Date Quinten Anderson MD [address] [place] [address] #1 #1 PAIG[place] Michael [id number] PCP - General 09/10/20 documented as of this encounter
[2025-03-10 11:14] VITALS: BMI 32.9
--- OUTSIDE RECORDS SUMMARY | 2025-03-10 11:14 | XMS_ITS | Encounter Summary ---
Author Organization Healthcare Address [address] [place] [address] Care Team Providers Care Language Path Name Role Phone Quinten Anderson MD Primary Care Provider [phone] Encounter Details Date Type Department Care Team (Late st Contact Info) Description 01/08/2025 Orders Only External Location [address] [place] [address] Provider, External Social History Tobacco Use [...] [facility] [place] [address] Sari Murry [facility] 800 [place] [address] 07/30/2025 9:30 AM EDT Office Visit [facility] [address] [facility], 2nd [place] [address] Parish Lou MD [address] [facility] Sari Murry [address] [address] documented as of this encounter [...] on filedocumented in this encounter Care Teams Language Path Relationship Specialty Start Date End Date Quinten Anderson MD [address] [place] [address] #1 #1 [place] [address] PCP - General 09/10/20 documented as of this encounter
--- OUTSIDE RECORDS SUMMARY | 2025-03-10 11:14 | XMS_ITS | Encounter Summary ---
Author Organization [facility] Address [address] [place] [address] Care Team Providers Care Cargo Mate Name Role Phone Quinten Anderson MD Primary Care Provider [phone] Encounter Details Date Type Department Care Team (Late st Contact Info) Description 01/22/2025 Telephone PAV [address] [place] [phone] Liudmila Bravo, RN Social History Tobacco Use [...] Description 07/30/2025 8:00 AM EDT Appointment PAV [address] 800 [place] [address] 07/30/2025 9:30 AM EDT Office Visit P[facility] 7[address] [facility], 2nd [place] [address] Parish Lou MD 800 [facility] [address] [place] [address] documented as of this encounter Visit Diagnoses Not on filedocumented in this encounter Care Teams Cargo Mate Relationship Specialty Start Date End Date Quinten Anderson MD [address] [place] [address] #1 #1 [place] [address] PCP - General 09/10/20 documented as of this encounter
--- OUTSIDE RECORDS SUMMARY | 2025-03-10 11:14 | XMS_ITS | Encounter Summary ---
Author Organization Healthcare Address [address] [place] [address] Care Team Providers Care Welfare Service Aide Name Role Phone Quinten Anderson MD Primary Care Provider [phone] Encounter Details Date Type Department Care Team (Late st Contact Info) Description 10/11/2022 Orders Only External Location [address] [place] [address] Provider, External Social History Tobacco Use [...] Center [facility] [place] [address] Sari Murry [facility] 800 [place] [address] 07/30/2025 9:30 AM EDT Office Visit [facility] [address] [facility], 2nd [place] [address] Parish Lou MD [address] [facility] [address] [address] documented as of this encounter [...] on filedocumented in this encounter Care Teams Welfare Service Aide Relationship Specialty Start Date End Date Quinten Anderson MD [address] [place] [address] #1 #1 [place] [address] PCP - General 09/10/20 documented as of this encounter
--- OUTSIDE RECORDS SUMMARY | 2025-03-10 11:14 | XMS_ITS | Encounter Summary ---
Author Organization Healthcare Address [address] [place] [address] Care Team Providers Care Railcar Brake Operator Name Role Phone Quinten Anderson MD Primary Care Provider [phone] Encounter Details Date Type Department Care Team [...] [facility] [place] [address] Sari Murry [facility] 800 [place] [address] 07/30/2025 9:30 AM EDT Office Visit [facility] [address] [facility], 2nd [place] [address] Parish Lou MD 800 [facility] [address] [address] documented as of this encounter Visit Diagnoses Not on filedocumented in this encounter Additional Health Concerns Assessment Noted Time A fall risk assessment has been complete d for the patient 01/29/2025 11:19 AM EDT A Body Mass Index follow-up plan has been documented for the patient 02/08/2025 9:17 PM EDT documented as of this encounter Care Teams Railcar Brake Operator Relationship Specialty Start Date End Date Quinten Anderson MD [address] [place] [address] #1 #1 [place] [address] PCP - General 09/10/20 documented as of this encounter
--- OUTSIDE RECORDS SUMMARY | 2025-03-10 11:14 | XMS_ITS | Encounter Summary ---
Author Organization Healthcare Address [address] [place] [address] Care Team Providers Care Fire Investigation Manager Name Role Phone Quinten Anderson MD Primary Care Provider [phone] Encounter Details Date Type Department Care Team [...] [facility] [place] [address] Sari Murry [facility] 800 [place] [address] 07/30/2025 9:30 AM EDT Office Visit [facility] 7[address] [facility], 2nd [place] [address] Parish Lou MD 800 [facility] [address] [phone] documented as of this encounter Visit Diagnoses Not on filedocumented in this encounter Additional Health Concerns Assessment Noted Time A fall risk assessment has been complete d for the patient 01/29/2025 11:19 AM EDT A Body Mass Index follow-up plan has been documented for the patient 02/08/2025 9:17 PM EDT documented as of this encounter Care Teams Fire Investigation Manager Relationship Specialty Start Date End Date Quinten Anderson MD [address] [place] [address] #1 #1 [place] [address] PCP - General 09/10/20 documented as of this encounter
--- OUTSIDE RECORDS SUMMARY | 2025-03-10 11:14 | XMS_ITS | Encounter Summary ---
Author Organization Healthcare Address [address] [place] [address] Care Team Providers Care Sugar Boiler Name Role Phone Quinten Anderson MD Primary Care Provider [phone] Encounter Details Date Type Department Care Team (Late st Contact Info) Description 11/10/2022 Orders Only External Location [address] [place] [phone] Provider, External Social History Tobacco Use Types [...] Center [facility] [place] [address] Sari Murry [facility] 800 [place] [address] 07/30/2025 9:30 AM EDT Office Visit [facility] 7[address] [facility], 2nd [place] [address] Parish Lou MD 800 [facility] [address] [address] documented as of this encounter [...] on filedocumented in this encounter Care Teams Sugar Boiler Relationship Specialty Start Date End Date Quinten Anderson MD [address] [place] [address] #1 #1 [place] [address] PCP - General 09/10/20 documented as of this encounter
--- OUTSIDE RECORDS SUMMARY | 2025-03-10 11:14 | XMS_ITS | Clinical Summary ---
Author Organization [facility] Address [address] [place] [address] Care Team Providers Care Pipe Fitter Gas Pipe Name Role Phone Unavailable Primary Care Provider [...]
--- OUTSIDE RECORDS SUMMARY | 2025-03-10 11:14 | XMS_ITS | Clinical Summary ---
Author Organization Healthcare Address [address] [place] [address] Care Team Providers Care Railroad Car Cleaning Supervisor Name Role Phone Quinten Anderson MD Primary Care Provider [phone] Allergies Active Allergy Reactions Criticality Noted Date [...] from 01/29/2025:Stage IIA(cT3, cN0, cM0, G2, ER+, LA+, HER2-) - Signed by Parish Lou MD on 02/08/2025 Encounters Date Type Department Care Team Description 02/03/2025 Travel 01/29/2025 11:00 AM EDT Office Visit PAV [facility] [address] [facility], 2nd [place] [address] Parish Lou MD Malignant neoplasm of upper-outer quadrant of left breast in female, estrogen receptor positive (Primary Dx) 01/29/2025 Travel 01/22/2025 Telephone [facility] [address] [facility] 800 [place] [address] Liudmila Bravo, RN 01/15/2025 2:27 PM EDT - 01/15/2025 11:59 PM EDT Hospital Encounter [facility] [address] [facility] 800 [place] [address] Abnormal findings on diagnostic imaging of breast Discharge Disposition: Home or Self Care 01/15/2025 1:51 PM EDT - 01/15/2025 2:26 PM EDT Hospital Encounter [facility] [address] [facility] [address] [place] [address] Abnormal findings on diagnostic imaging of breast Discharge Disposition: Home or Self Care 01/15/2025 Travel 01/08/2025 Orders Only External Location [address] [place] [address] Provider, External 01/07/2025 Orders Only PAV [facility] [address] [facility] [address] [place] [address] Liudmila Bravo, RN 01/07/2025 Telephone PAV [facility] [address] [facility] [address] [place] [address] Liudmila Bravo, RN 01/07/2025 Telephone [facility] [address] [facility] [address] [place] [address] Liudmila Bravo, RN 01/06/2025 1:15 PM EDT - 01/06/2025 11:59 PM EDT Hospital Encounter P[facility] [address] S[address] Mur[address] [facility] 800 [place] [address] Abnormal findings on diagnostic imaging of breast Discharge Disposition: Home or Self Care 01/06/2025 11:00 AM EDT - 01/06/2025 1:14 PM EDT Hospital Encounter PAV [facility] [address] S[address] Murry [facility] [address] [place] [address] Abnormal findings on diagnostic imaging of breast Discharge Disposition: Home or Self Care 01/06/2025 10:00 AM EDT - 01/06/2025 10:59 AM EDT Hospital Encounter PAV [facility] [address] S[address] Murry [facility] [address] [place] [address] Abnormal findings on diagnostic imaging of breast Discharge Disposition: Home or Self Care 01/06/2025 Travel 12/22/2024 Telephone PAV [facility] [address] Sari Murry [facility] 800 [place] [address] Emily Pruitt 12/19/2024 Orders Only External Location [address] [place] [address] Provider, External from Last 3 Months Family [...] [facility] [place] [address] Sari Murry Building [address] [place] [address] 07/30/2025 9:30 AM EDT Office Visit [facility] [address] [facility], 2nd [place] [address] Parish Lou MD [address] [facility] Sari Joeson Bld[address] Alexis [address] [place] [address] Health Maintenance Due Date Last Done Comments [facility]-Bone Density Scan 1946 [facility]-Depression Screening 1946 [facility]-Hepatitis C Screening 1945 [facility]-Medicare Annual Wellness (AWV) 1946 [facility]-/Child/Adol SDOH Screenings 01/01/1947 [facility]- SDOH Screenings 1964 [facility]-Adult SDOH Screenings 1964 [facility]-Pneumococcal Vaccine: 50+ Years (1 of 2 - PCV) 1965 [facility]-Zoster Vaccines (1 of 2) 1965 [facility]-RSV Vaccine: 60+ Years or (1 - 1-dose 75+ series) 2021 [id number] Vaccine (3 - season) 2024 04/08/2021, 07/07/2020 [...] THORACIC OUTSIDE IMAGES 12/19/2024 7:07 AM EDT from Last 3 Months Results * [...] documented in the patient's chart at the [facility]. Drafted by Yee Hernandez [...] documented in the patient's chart at the [facility]. Drafted by Yee Hernandez [...] PM EDT) Case Report Surgical Pathology Case: [id number] Authorizing Provider: Quinten Anderson MD Collected: 01/15/2025 1410 Ordering Location: [facility] Received: 01/15/2025 1600 Pathologist: Marianela Ugarte MD Specimen: Breast, Left, Left breast solid mass 2:00-4:00 spans 8 cm 5 10:50 AM EDT [facility] Final Diagnosis A. 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 - TUMOR INVOLVES SEVEN OF SEVEN CORES (7/7) - SEE BIOMARKER CHECKLIST 5 10:50 AM EDT [facility] at 1050 EDT Synoptic Checklist [...] Drug Administration (FDA) cleared (test / vendor): [employer] ER Primary Antibody: SP1 PgR Testing Methodology: PgR Test Type: Food and Drug Administration (FDA) cleared (test / vendor): [employer] PgR Primary Antibody: 1E2 HER2 IHC Testing Methodology: HER2 IHC Test Type: Food and Drug Administration (FDA) cleared (test / vendor): [employer] HER2 IHC Primary Antibody: 4B5 Image Analysis: Not performed 5 10:[address] [facility] Clinical Information R92.8 - Abnormal findings on diagnostic imaging of breast [ICD-10-CM] 5 10:50 AM EDT [facility] Special and Immunohistochemical Stains Special Stain: There are no tasks to display for the given criteria. IHC: A1-4 ER Quantitative (%) A1-5 LA (Progesterone) Quantitative (%) A1-6 HER2/PALMER Quantitative A1-7 HER2 FISH Extra Slide A1-8 HER2 FISH Extra Slide A1-9 HER2 FISH Extra Slide All controls show appropriate reactivity. All immunohistochemist ry, in situ hybridization, and histochemical tests were developed by and are performed at the [facility], [address] [place] [address]. All tests reported here, except those addressing [...] negativity on decalcified specimens. 10:50 AM EDT [facility] Gross Description A. LEFT BREAST [...] Time: 1m Pat Austin 10:50 AM EDT [facility] Intradepartmental Consultation with Agreement This case was seen in consultation with Dr. Chacon, who concurs with the above diagnosis. 10:50 AM EDT [facility] Note: A resident was involved in the service. I attest I examined the relevant preparations for the specimens and confirmed the diagnosis or interpretation. 10:50 AM EDT [facility] Tissue Left breast structure / Unknown 01/15/2025 2:10 PM EDT 01/15/2025 4:00 PM EDT us Quinten Anderson MD LAB PATHOLOGY ORDERABLES Final Result [facility] [address] [place] [address] * MR NEURO OUTSIDE IMAGES (01/08/2025 8:48 [...] following partially visualized [facility]. TECHNIQUE: Bilateral diagnostic [...] following partially visualized left breast [facility] chest. TECHNIQUE: Bilateral diagnostic [...] following partially visualized left breast [facility] chest. TECHNIQUE: Bilateral diagnostic [...] MD on 01/06/2025 3:17 PM us Quinten C Anderson MD IMG BI PROCEDURES Final Result * CT THORACIC OUTSIDE IMAGES (12/19/2024 7:07 AM EDT) Anatomical Region Laterality Modality Computed Tomogra phy 12/19/2024 7:07 AM EDT External Provider IMG CT PROCEDURES Edited Resul t - Final from Last 3 Months Insurance MEDICARE [facility] Care Teams Railroad Car Cleaning Supervisor Relationship Specialty Start Date End Date Quinten Anderson MD [address] [place] [address] #1 #1 [place] [address] PCP - General 09/10/20
--- OUTSIDE RECORDS SUMMARY | 2025-03-10 11:14 | XMS_ITS | Encounter Summary ---
Author Organization Healthcare Address [address] [place] [address] Care Team Providers Care Restoration Ecologist Name Role Phone Quinten Anderson MD Primary Care Provider [phone] Encounter Details Date Type Department Care Team (Late st Contact Info) Description 12/15/2022 Orders Only External Location [address] [place] [phone] Provider, External Social History Tobacco Use Types [...] Breast Care [facility] [place] [address] Sari Murry [facility] 800 [place] [address] 07/30/2025 9:30 AM EDT Office Visit [facility] 7[address] [facility], 2nd [place] [address] Parish Lou MD 800 [facility] [address] [address] documented as of this encounter [...] on filedocumented in this encounter Care Teams Restoration Ecologist Relationship Specialty Start Date End Date Quinten Anderson MD [address] [place] [address] #1 #1 [place] [address] PCP - General 09/10/20 documented as of this encounter
--- OUTSIDE RECORDS SUMMARY | 2025-03-10 11:14 | XMS_ITS | Encounter Summary ---
Author Organization Healthcare Address [address] [place] [address] Care Team Providers Care Photoengraving Etcher Apprentice Name Role Phone Quinten Anderson MD Primary Care Provider [phone] Encounter Details Date Type Department Care Team (Late st Contact Info) Description 08/26/2024 Orders Only External Location [address] [place] [address] Provider, External Social History Tobacco [...] Breast Care [facility] [place] [address] Sari Murry [facility] 800 [place] [address] 07/30/2025 9:30 AM EDT Office Visit [facility] 740 [facility], 2nd [place] [phone] Parish Lou MD 800 [facility] [address] [address] documented as of this encounter [...] on filedocumented in this encounter Care Teams Photoengraving Etcher Apprentice Relationship Specialty Start Date End Date Quinten Anderson MD [address] [place] [address] #1 #1 [place] [address] PCP - General 09/10/20 documented as of this encounter
--- OUTSIDE RECORDS SUMMARY | 2025-03-10 11:14 | XMS_ITS | Encounter Summary ---
Author Organization Healthcare Address [address] [place] [address] Care Team Providers Care Jewel Gauger Name Role Phone Quinten Anderson MD Primary Care Provider [phone] Encounter Details Date Type Department Care Team (Late st Contact Info) Description 12/01/2024 Orders Only External Location 800 [place] [address] Provider, External Social History Tobacco [...] Breast Care [facility] [place] [address] Sari Murry [facility] 800 [place] [address] 07/30/2025 9:30 AM EDT Office Visit [facility] [address] [facility], 2nd [place] [address] Parish Lou MD [address] [facility] Sari Murry [address] [address] documented as of this [...] on filedocumented in this encounter Care Teams Jewel Gauger Relationship Specialty Start Date End Date Quinten Anderson MD [address] [place] [address] #1 #1 [place] [address] PCP - General 09/10/20 documented as of this encounter
--- OUTSIDE RECORDS SUMMARY | 2025-03-10 11:14 | XMS_ITS | Encounter Summary ---
Author Organization Healthcare Address [address] [place] [address] Care Team Providers Care Golf Course Patroller Name Role Phone Quinten Anderson MD Primary Care Provider [phone] Encounter Details Date Type Department Care Team [...] Care Center [facility] [address] [facility] [address] [place] [address] 07/30/2025 9:30 AM EDT Office Visit [facility] 740 [facility], 2nd [place] [address] Parish Lou MD 800 [facility] Lov[address] Alexis [address] [place] [address] documented as of this encounter Visit Diagnoses Not on filedocumented in this encounter Care Teams Golf Course Patroller Relationship Specialty Start Date End Date Quinten Anderson MD [address] [facility] #1 #1 [place] [address] PCP - General 09/10/20 documented as of this encounter
--- OUTSIDE RECORDS SUMMARY | 2025-03-10 11:14 | XMS_ITS | Encounter Summary ---
Author Organization Healthcare Address [address] [place] [address] Care Team Providers Care Crematory Operator Name Role Phone Quinten Anderson MD Primary Care Provider [phone] Encounter Details Date Type Department Care Team (Late st Contact Info) Description 11/22/2022 Orders Only External Location [address] [place] [address] Provider, External Social History Tobacco Use [...] Breast Care Center [facility] [place] [address] Sari Murry [facility] 800 [place] [address] 07/30/2025 9:30 AM EDT Office Visit [facility] 740 [facility], 2nd [place] [phone] Parish Lou MD 800 [facility] [address] [address] documented as of this encounter [...] on filedocumented in this encounter Care Teams Crematory Operator Relationship Specialty Start Date End Date Quinten Anderson MD [address] [place] [address] #1 #1 [place] [address] PCP - General 09/10/20 documented as of this encounter
--- OUTSIDE RECORDS SUMMARY | 2025-03-10 11:14 | XMS_ITS | Encounter Summary ---
Author Organization Healthcare Address [address] [place] [address] Care Team Providers Care Testing Manager Name Role Phone Quinten Anderson MD Primary Care Provider [phone] Encounter Details Date Type Department Care Team (Late st Contact Info) Description 12/15/2022 Orders Only External Location [address] [place] [phone] Marty Hargrove MD [address] [facility] [address] [place] [address] Social History Tobacco Use Types Packs/Day Years [...] Center [facility] [place] [address] Sari Murry Building [address] [place] [address] 07/30/2025 9:30 AM EDT Office Visit [facility] 740 [facility], 2nd [place] [phone] Parish Lou MD 800 [facility] Sari Murry [address]ld[address] Alex[address] [place] [address] documented as of this encounter [...] on filedocumented in this encounter Care Teams Testing Manager Relationship Specialty Start Date End Date Quinten Anderson MD [address] [place] [address] #1 #1 [place] [address] PCP - General 09/10/20 documented as of this encounter
[2025-03-10 11:31] LABS: Hematocrit 38.9 % (37.0-47.0); Hemoglobin 12.3 g/dL (12.2-16.2); Immature Granulocytes % 0.8 %; Mean Corpuscular HGB Conc 31.6 g/dL (31.8-35.4); Mean Corpuscular Hemoglobin 27.4 pg (27.0-31.2); Mean Corpuscular Volume 86.6 fl (81-99); Nucleated Red Blood Cells % 0 %; Platelet Count 333 K/mm3 (142-424); Red Blood Count 4.49 M/mm3 (4.20-5.40); Red Cell Distribution Width-SD 47.2 fL; White Blood Count 4.9 K/mm3 (4.8-10.8)
[2025-03-10 11:32] LABS: Alanine Aminotransferase 14 U/L (12-78); Albumin Level 3.9 g/dl (3.5-5.0); Albumin/Globulin Ratio 1.3 (1.1-1.8); Alkaline Phosphatase 110 U/L (38-126); Anion Gap 8.7 mEq/L (5-15); Aspartate Amino Transferase 21 U/L (14-36); Bilirubin,Total 0.5 mg/dl (0.2-1.3); Blood Urea Nitrogen 8 mg/dl (7-17); Calcium 9.3 mg/dl (8.4-10.2); Carbon Dioxide 26 mmol/L (22.0-30.0); Chloride 104 mmol/L (98-107); Creatinine Clearance Estimated 60 mL/min (50-200); Creatinine,Serum 0.90 mg/dl (0.52-1.04); Estimated Glomerular Filt Rate 61 ml/min (>60); GFR (African American) 73 ML/MIN (>60); Globulin 3.1 g/dL (1.3-3.2); Glucose 118 mg/dl (74-100); Potassium 3.7 mmoL/L (3.5-5.1); Sodium 135 mmol/L (136-145); Total Protein,Serum 7.0 g/dl (6.3-8.2)
[2025-03-10] MEDS: ONDANSETRON 4MG ODT 16 MG (11:45)
[2025-03-10] MEDS: FAMOTIDINE 20MG TABLET 20 MG (11:45)
[2025-03-10] MEDS: DEXAMETHASONE 4MG TABLET 12 MG (11:45)
[2025-03-10] MEDS: LORATADINE 10MG TABLET 10 MG PO (11:45)
[2025-03-10] MEDS: SODIUM CHLORIDE 0.9% 100ML BAG 100 ML IV (12:17)
[2025-03-10 12:20] VITALS: BP 91/57; PULSE 101; RESP 18; O2SAT 100
[2025-03-10] MEDS: WATER IV (12:20)
[2025-03-10] MEDS: DEXTROSE 5% IV (12:20)
[2025-03-10] MEDS: PACLITAXEL IV (12:20)
[2025-03-10 13:25] VITALS: BP 129/71; PULSE 91; RESP 18; O2SAT 100
[2025-03-10] MEDS: CARBOplatin 150 MG in 0.9 % SODIUM CHLORIDE 100 ML 230 MG IV (13:25)
[2025-03-10 13:58] VITALS: RESP 18; O2SAT 100
[2025-03-10 14:05] VITALS: BP 144/65; PULSE 89; RESP 18; O2SAT 99
== END 2025-03-10 23:59 | disposition home or self-care (01) ==
PROVIDERS: PCP Family Medicine; Visit Provider Internal Medicine Medical Oncology
DX: C34.12 Malignant neoplasm of upper lobe, left bronchus or lung (principal); Z51.11 Encounter for antineoplastic chemotherapy
CPT/HCPCS: 80053; 85025; 96413; 96415; 96417; J7060; J8540; J9045; J9267; Q0162

== ENCOUNTER 2025-03-17 10:46 | Outpatient (CLI) | payer MEDICARE, OTHER, SELFPAY ==
[2025-03-17 11:07] LABS: Hematocrit 37.6 % (37.0-47.0); Hemoglobin 12.4 g/dL (12.2-16.2); Immature Granulocytes % 0.7 %; Mean Corpuscular HGB Conc 33.0 g/dL (31.8-35.4); Mean Corpuscular Hemoglobin 28.7 pg (27.0-31.2); Mean Corpuscular Volume 87.0 fl (81-99); Nucleated Red Blood Cells % 0 %; Platelet Count 279 K/mm3 (142-424); Red Blood Count 4.32 M/mm3 (4.20-5.40); Red Cell Distribution Width-SD 46.9 fL; White Blood Count 4.3 K/mm3 (4.8-10.8)
[2025-03-17 11:17] LABS: Alanine Aminotransferase 17 U/L (12-78); Albumin Level 3.9 g/dl (3.5-5.0); Albumin/Globulin Ratio 1.5 (1.1-1.8); Alkaline Phosphatase 103 U/L (38-126); Anion Gap 7.7 mEq/L (5-15); Aspartate Amino Transferase 23 U/L (14-36); Bilirubin,Total 0.4 mg/dl (0.2-1.3); Blood Urea Nitrogen 10 mg/dl (7-17); Calcium 9.2 mg/dl (8.4-10.2); Carbon Dioxide 25 mmol/L (22.0-30.0); Chloride 105 mmol/L (98-107); Creatinine,Serum 0.90 mg/dl (0.52-1.04); Estimated Glomerular Filt Rate 61 ml/min (>60); GFR (African American) 73 ML/MIN (>60); Globulin 2.6 g/dL (1.3-3.2); Glucose 110 mg/dl (74-100); Potassium 3.7 mmoL/L (3.5-5.1); Sodium 134 mmol/L (136-145); Total Protein,Serum 6.5 g/dl (6.3-8.2)
[2025-03-17] MEDS: ONDANSETRON 4MG ODT 16 MG (11:35)
[2025-03-17] MEDS: DEXAMETHASONE 4MG TABLET 12 MG (11:35)
[2025-03-17] MEDS: LORATADINE 10MG TABLET 10 MG PO (11:35)
[2025-03-17] MEDS: FAMOTIDINE 20MG TABLET 20 MG (11:35)
[2025-03-17 12:13] VITALS: BP 132/73; PULSE 91; RESP 18; O2SAT 99
[2025-03-17] MEDS: SODIUM CHLORIDE 0.9% 100ML BAG 100 ML IV (12:13)
[2025-03-17] MEDS: PACLITAXEL IV (12:13)
[2025-03-17] MEDS: WATER IV (12:13)
[2025-03-17] MEDS: DEXTROSE 5% IV (12:13)
[2025-03-17 13:15] VITALS: BP 122/63; PULSE 95; RESP 18; O2SAT 100
[2025-03-17] MEDS: CARBOplatin 150 MG in 0.9 % SODIUM CHLORIDE 100 ML 230 MG IV (13:15)
[2025-03-17 13:50] VITALS: BP 147/76; PULSE 99; RESP 18; O2SAT 99
== END 2025-03-17 23:59 | disposition home or self-care (01) ==
PROVIDERS: PCP Family Medicine; Visit Provider Internal Medicine Medical Oncology
DX: C34.12 Malignant neoplasm of upper lobe, left bronchus or lung (principal); Z51.11 Encounter for antineoplastic chemotherapy
CPT/HCPCS: 80053; 85025; 96413; 96415; 96417; J7060; J8540; J9045; J9267; Q0162

== ENCOUNTER 2025-03-24 10:38 | Outpatient (CLI) | payer MEDICARE, OTHER, SELFPAY ==
--- OUTSIDE RECORDS SUMMARY | 2025-01-29 10:00 | XMS_ITS | Encounter Summary ---
Author Organization Healthcare Address [address] [place] [address] Care Team Providers Care Feller Machine Operator Name Role Phone Quinten Anderson MD Primary Care Provider [phone] Encounter Details Date Type Department Care Team (Late st Contact Info) Description 01/29/2025 11:00 AM EDT Office Visit [facility] [address] [facility]nd [place] [address] Parish Lou MD [address] [facility] Sari Murry [facility] [address] [place] [address] Malignant neoplasm of upper-outer quadrant [...] lesion noted at 3 oclock 11cfn measuring [id number] which was biopsy proved to be a [...] PMHx: Past Medical History[1] PSHx: Surgical History[2] REAL ESTATE AGENCY LICENSEE/Breast Hx: -Menarche: 18 -LMP: unknown -OCP hx: [...] Drug Administration (FDA) cleared (test / vendor): [place] [facility] Primary Antibody: SP1 PgR Testing Methodology: PgR Test Type: Food and Drug Administration (FDA) cleared (test / vendor): [place] PgR Primary Antibody: 1E2 HER2 IHC Testing Methodology: HER2 IHC Test Type: Food and Drug Administration (FDA) cleared (test / vendor): [place] HER2 IHC Primary Antibody: 4B5 Image Analysis: [...] [facility] [place] [address] [facility] [address] [place] [address] 07/30/2025 9:30 AM EDT Office Visit [facility] [place] [address] [facility] [place] [address] Praish Lou MD [address] [facility] [address] [place] [address] Scheduled Orders Name Type Priority Associated Diagnoses [...] documented as of this encounter Care Teams Feller Machine Operator Relationship Specialty Start Date End Date Quinten Anderson MD [address] [place] [address] #1 #1 PAIGE Michael [id number] PCP - General 09/10/20 documented as of this encounter
[2025-03-24 10:41] VITALS: BMI 32.9
--- OUTSIDE RECORDS SUMMARY | 2025-03-24 10:46 | XMS_ITS | Clinical Summary ---
Author Organization Healthcare Address [address] [place] [address] Care Team Providers Care Viscosity Worker Name Role Phone Quinten Anderson MD Primary Care Provider [phone] Allergies Active Allergy Reactions Criticality Noted Date [...] from 01/29/2025:Stage IIA(cT3, cN0, cM0, G2, ER+, DE+, HER2-) - Signed by Parish Lou MD on 02/08/2025 Encounters Date Type Department Care Team Description 02/03/2025 Travel 01/29/2025 11:00 AM EDT Office Visit [facility] [address] [facility], 2nd [place] [address] Parish Lou MD Malignant neoplasm of upper-outer quadrant of left breast in female, estrogen receptor positive (Primary Dx) 01/29/2025 Travel 01/22/2025 Telephone [facility] [address] [facility] [address] [place] [address] Liudmila Bravo, RN 01/15/2025 2:27 PM EDT - 01/15/2025 11:59 PM EDT Hospital Encounter [facility] [address] [facility] [address] [place] [address] Abnormal findings on diagnostic imaging of breast Discharge Disposition: Home or Self Care 01/15/2025 1:51 PM EDT - 01/15/2025 2:26 PM EDT Hospital Encounter [facility] [address] [facility] [address] [place] [address] Abnormal findings on diagnostic imaging of breast Discharge Disposition: Home or Self Care 01/15/2025 Travel 01/08/2025 Orders Only External Location [address] [place] [address] Provider, External 01/07/2025 Orders Only [facility] [address] [facility] [address] [place] [address] Liudmila Bravo, RN 01/07/2025 Telephone [facility] [address] [facility] [address] [place] [address] Liudmila Bravo, RN 01/07/2025 Telephone [facility] [address] [facility] [address] [place] [address] Liudmila Bravo, RN 01/06/2025 1:15 PM EDT - 01/06/2025 11:59 PM EDT Hospital Encounter [facility] [address]ry [facility] [address] [place] [address] Abnormal findings on diagnostic imaging of breast Discharge Disposition: Home or Self Care 01/06/2025 11:00 AM EDT - 01/06/2025 1:14 PM EDT Hospital Encounter [facility] [address]ry [facility] [address] [place] [address] Abnormal findings on diagnostic imaging of breast Discharge Disposition: Home or Self Care 01/06/2025 10:00 AM EDT - 01/06/2025 10:59 AM EDT Hospital Encounter [facility] [address] [facility] [address] [place] [address] Abnormal findings on diagnostic imaging of breast Discharge Disposition: Home or Self Care 01/06/2025 Travel 12/22/2024 Telephone [facility] [address] [facility] [address] [place] [address] Emily Pruitt from Last 3 Months Family History Medical [...] [facility]ry Building [address] [place] [address] 07/30/2025 9:30 AM EDT Office Visit [facility] [address] [facility], 2nd [place] [address] Parish Lou MD [address] [facility] Sari Joeson [facility] [address] [place] [address] Health Maintenance Due Date Last [...] or (1 - 1-dose 75+ series) 2021 [id number] Vaccine (3 - 2024- season) 2024 04/08/2021, [...] Abnormal findings on diagnostic imaging of breast from Last 3 Months Results * Mammography [...] in the patient's chart at the [facility]. Drafted by Yee Hernandez [...] in the patient's chart at the [facility]. Drafted by Yee Hernandez [...] PM EDT) Case Report Surgical Pathology Case: [id number] Authorizing Provider: Quinten Anderson MD Collected: 01/15/2025 1410 Ordering Location: [facility] Received: 01/15/2025 1600 Pathologist: Marianela Ugarte MD Specimen: Breast, Left, Left breast solid mass 2:00-4:00 spans 8 cm 10:50 AM EDT [facility] Final Diagnosis A. 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 - TUMOR INVOLVES SEVEN OF SEVEN CORES (7/7) - SEE BIOMARKER CHECKLIST 10:50 AM EDT [facility] at 1050 EDT Synoptic Checklist [...] Drug Administration (FDA) cleared (test / vendor): [facility] Primary Antibody: SP1 PgR Testing Methodology: PgR Test Type: Food and Drug Administration (FDA) cleared (test / vendor): [facility] PgR Primary Antibody: 1E2 HER2 IHC Testing Methodology: HER2 IHC Test Type: Food and Drug Administration (FDA) cleared (test / vendor): [facility] HER2 IHC Primary Antibody: 4B5 Image Analysis: Not performed 10:50 AM EDT [facility] Clinical Information R92.8 - Abnormal findings on diagnostic imaging of breast [ICD-10-CM] 10:50 AM EDT [facility] Special and Immunohistochemical Stains Special Stain: There are no tasks to display for the given criteria. IHC: A1-4 ER Quantitative (%) A1-5 DE (Progesterone) Quantitative (%) A1-6 HER2/PALMER Quantitative A1-7 HER2 FISH Extra Slide A1-8 HER2 FISH Extra Slide A1-9 HER2 FISH Extra Slide All controls show appropriate reactivity. All immunohistochemist ry, in situ hybridization, and histochemical tests were developed by and are performed at the [facility], [address] [place] [address]. All tests reported here, except those addressing [...] negativity on decalcified specimens. 10:50 AM EDT [facility] Gross Description A. LEFT BREAST SOLID [...] Time: 1m Pat Austin 10:50 AM EDT [facility] Intradepartmental Consultation with Agreement This case was seen in consultation with Dr. Chacon, who concurs with the above diagnosis. 10:50 AM EDT [facility] Note: A resident was involved in the service. I attest I examined the relevant preparations for the specimens and confirmed the diagnosis or interpretation. 10:50 AM EDT [facility] Tissue Left breast structure / Unknown 01/15/2025 2:10 PM EDT 01/15/2025 4:00 PM EDT us Quinten Anderson MD LAB PATHOLOGY ORDERABLES Final Result [facility] [address] [place] [address] * MR NEURO OUTSIDE IMAGES (01/08/2025 8:48 [...] presents [facility] TECHNIQUE: Bilateral [...] presents following [facility] TECHNIQUE: Bilateral [...] presents following [facility]. TECHNIQUE: Bilateral diagnostic mammogram [...] Anderson MD IMG BI PROCEDURES Final Result from Last 3 Months [place] [phone] [facility] Care Teams Viscosity Worker Relationship Specialty Start Date End Date Quinten Anderson MD [address] [place] [address] #1 [address]1 [place] [address] PCP - General 09/10/20
--- OUTSIDE RECORDS SUMMARY | 2025-03-24 10:46 | XMS_ITS | Encounter Summary ---
Author Organization Healthcare Address [address] [place] [address] Care Team Providers Care Food Production Machine Operator Name Role Phone Quinten Anderson MD Primary Care Provider [phone] Encounter Details Date Type Department Care Team (Late st Contact Info) Description 11/22/2022 Orders Only External Location [address] [place] [address] Provider, External Social History Tobacco Use [...] [facility] [place] [address] S[address]ry [facility] [address] [place] [address] 07/30/2025 9:30 AM EDT Office Visit [facility] [address] [facility], 2nd [place] [address] Parish Lou MD 800 [facility] [address] [address] documented as of this encounter [...] on filedocumented in this encounter Care Teams Food Production Machine Operator Relationship Specialty Start Date End Date Quinten Anderson MD [address] [place] [address] #1 [address]1 [place] [address] PCP - General 09/10/20 documented as of this encounter
--- OUTSIDE RECORDS SUMMARY | 2025-03-24 10:46 | XMS_ITS | Encounter Summary ---
Author Organization Healthcare Address [address] [place] [address] Care Team Providers Care Drawer In Dobby Loom Name Role Phone Quinten Anderson MD Primary Care Provider [phone] Encounter Details Date Type Department Care Team (Late st Contact Info) Description 12/15/2022 Orders Only External Location [address] [place] [phone] Provider, External Social History Tobacco Use Types [...] [facility] [place] [address] S[address] Murry [facility] [address] [place] [address] 07/30/2025 9:30 AM EDT Office Visit [facility] [address] [facility], 2nd [place] [address] Parish Lou MD [address] [facility] [address] [address] documented as of this encounter [...] on filedocumented in this encounter Care Teams Drawer In Dobby Loom Relationship Specialty Start Date End Date Quinten Anderson MD [address] [place] [address] #1 #1 [place] [address] PCP - General 09/10/20 documented as of this encounter
--- OUTSIDE RECORDS SUMMARY | 2025-03-24 10:46 | XMS_ITS | Encounter Summary ---
Author Organization Healthcare Address [address] [place] [address] Care Team Providers Care Expeller Operator Name Role Phone Quinten Anderson MD Primary Care Provider [phone] Encounter Details Date Type Department Care Team (Late st Contact Info) Description 10/11/2022 Orders Only External Location [address] [place] [address] Provider, External Social History Tobacco Use [...] [facility] [place] [address] Sari Murry [facility] [address] [place] [address] 07/30/2025 9:30 AM EDT Office Visit [facility] [address] [facility], 2nd [place] [phone] Parish Lou MD [address] [facility] [address] [address] documented as of this encounter [...] on filedocumented in this encounter Care Teams Expeller Operator Relationship Specialty Start Date End Date Quinten Anderson MD [address] [place] [address] #1 #1 [place] [address] PCP - General 09/10/20 documented as of this encounter
--- OUTSIDE RECORDS SUMMARY | 2025-03-24 10:46 | XMS_ITS | Encounter Summary ---
Author Organization Healthcare Address [address] [place] [address] Care Team Providers Care Contracting Support Specialist Name Role Phone Quinten Anderson MD Primary Care Provider [phone] Encounter Details Date Type Department Care Team (Late st Contact Info) Description 01/08/2025 Orders Only External Location [address] [place] [address] Provider, External Social History Tobacco Use [...] Center [facility] [place] [address] Sari Murry [facility] [address] [place] [address] 07/30/2025 9:30 AM EDT Office Visit [facility] [address] [facility], 2nd [place] [address] Parish Lou MD 800 [facility] Sari Murry [address] [address] documented as of this encounter [...] on filedocumented in this encounter Care Teams Contracting Support Specialist Relationship Specialty Start Date End Date Quinten Anderson MD [address] [place] [address] #1 #1 [place] [address] PCP - General 09/10/20 documented as of this encounter
--- OUTSIDE RECORDS SUMMARY | 2025-03-24 10:46 | XMS_ITS | Encounter Summary ---
Author Organization Healthcare Address [address] [place] [address] Care Team Providers Care Senior Software Qa Analyst Name Role Phone Quinten Anderson MD Primary Care Provider [phone] Encounter Details Date Type Department Care Team (Late st Contact Info) Description 11/10/2022 Orders Only External Location [address] [place] [phone] Provider, External Social History Tobacco Use Types [...] [facility] [place] [address] [facility] 800 [place] [address] 07/30/2025 9:30 AM EDT Office Visit [facility] [address] [facility], 2nd [place] [address] Parish Lou MD 800 [facility] [address] [place] [address] [address] documented as of this encounter [...] on filedocumented in this encounter Care Teams Senior Software Qa Analyst Relationship Specialty Start Date End Date Quinten Anderson MD [address] [place] [address] #1 #1 [place] [address] PCP - General 09/10/20 documented as of this encounter
--- OUTSIDE RECORDS SUMMARY | 2025-03-24 10:47 | XMS_ITS | Encounter Summary ---
Author Organization Healthcare Address [address] [place] [address] Care Team Providers Care Lumber Loader Name Role Phone Quinten Anderson MD Primary Care Provider [phone] Encounter Details Date Type Department Care Team (Late st Contact Info) Description 12/15/2022 Orders Only External Location [address] [place] [phone] Marty Hargrove MD [address] [facility] [address] [place] [address] Social History Tobacco Use Types Packs/Day Years [...] Center [facility] [place] [address] [address] Building [address] [place] [address] 07/30/2025 9:30 AM EDT Office Visit [facility] 7[address] [facility], 2nd [place] [address] Parish Lou MD 800 [facility] Sari Murry [address] [place] [address] documented as of this encounter [...] on filedocumented in this encounter Care Teams Lumber Loader Relationship Specialty Start Date End Date Quinten Anderson MD [address] [place] [address] #1 [address]1 [place] [address] PCP - General 09/10/20 documented as of this encounter
--- OUTSIDE RECORDS SUMMARY | 2025-03-24 10:47 | XMS_ITS | Encounter Summary ---
Author Organization Healthcare Address [address] [place] [address] Care Team Providers Care Director Nurses' Registry Name Role Phone Quinten Anderson MD Primary Care Provider [phone] Encounter Details Date Type Department Care Team [...] [facility] [place] [address] S[address] Murry [facility] 800 [place] [address] 07/30/2025 9:30 AM EDT Office Visit [facility] [address] [facility], 2nd [place] [address] Parish Lou MD 800 [facility] [address] [address] documented as of this encounter Visit Diagnoses Not on filedocumented in this encounter Additional Health Concerns Assessment Noted Time A fall risk assessment has been complete d for the patient 01/29/2025 11:19 AM EDT A Body Mass Index follow-up plan has been documented for the patient 02/08/2025 9:17 PM EDT documented as of this encounter Care Teams Director Nurses' Registry Relationship Specialty Start Date End Date Quinten Anderson MD [address] [place] [address] #1 #1 [place] [address] PCP - General 09/10/20 documented as of this encounter
--- OUTSIDE RECORDS SUMMARY | 2025-03-24 10:47 | XMS_ITS | Encounter Summary ---
Author Organization Healthcare Address [address] [place] [address] Care Team Providers Care Policy Issue Clerk Name Role Phone Quinten Anderson MD Primary Care Provider [phone] Encounter Details Date Type Department Care Team (Late st Contact Info) Description 12/01/2024 Orders Only External Location [address] [place] [address] Provider, External Social History Tobacco [...] [facility] [place] [address] S[address] [place]ry [facility] 800 [place] [address] 07/30/2025 9:30 AM EDT Office Visit [facility] 7[address] [facility], 2nd [place] [address] Parish Lou MD 800 [facility] Sari Murry [address] [address] documented as of this encounter [...] on filedocumented in this encounter Care Teams Policy Issue Clerk Relationship Specialty Start Date End Date Quinten Anderson MD [address] [place] [address] #1 [address]1 [place] [address] PCP - General 09/10/20 documented as of this encounter
--- OUTSIDE RECORDS SUMMARY | 2025-03-24 10:47 | XMS_ITS | Clinical Summary ---
Author Organization [facility] ystem Address [address] [place] [address] Care Team Providers Care Service Order Taker Name Role Phone Unavailable Primary Care Provider [...]
--- OUTSIDE RECORDS SUMMARY | 2025-03-24 10:47 | XMS_ITS | Encounter Summary ---
Author Organization Healthcare Address [address] [place] [address] Care Team Providers Care Roof Shingler Name Role Phone Quinten Anderson MD Primary Care Provider [phone] Encounter Details Date Type Department Care Team (Late st Contact Info) Description 08/26/2024 Orders Only External Location [address] [place] [address] Provider, External Social History Tobacco [...] [facility] [place] [address] S[address] Murry [facility] 800 [place] [address] 07/30/2025 9:30 AM EDT Office Visit [facility] [address] [facility], 2nd [place] [address] Parish Lou MD 800 [facility] [address] [address] documented as of this encounter [...] on filedocumented in this encounter Care Teams Roof Shingler Relationship Specialty Start Date End Date Quinten Anderson MD [address] [place] [address] #1 [address]1 [place] [address] PCP - General 09/10/20 documented as of this encounter
--- OUTSIDE RECORDS SUMMARY | 2025-03-24 10:47 | XMS_ITS | Encounter Summary ---
Author Organization Healthcare Address [address] [place] [address] Care Team Providers Care [employer] Principal Name Role Phone Quinten Anderson MD Primary Care Provider [phone] Encounter Details Date Type Department Care Team [...] [facility] [place] [address] S[address] [place]ry [facility] 800 [place] [address] 07/30/2025 9:30 AM EDT Office Visit [facility] [address] [facility], 2nd [place] [address] Parish Lou MD 800 [facility] [address] [address] documented as of this encounter Visit Diagnoses Not on filedocumented in this encounter Additional Health Concerns Assessment Noted Time A fall risk assessment has been complete d for the patient 01/29/2025 11:19 AM EDT A Body Mass Index follow-up plan has been documented for the patient 02/08/2025 9:17 PM EDT documented as of this encounter Care Teams [employer] Principal Relationship Specialty Start Date End Date Quinten Anderson MD [address] [place] [address] #1 #1 [place] [address] PCP - General 09/10/20 documented as of this encounter
[2025-03-24 11:03] LABS: Hematocrit 36.1 % (37.0-47.0); Hemoglobin 11.5 g/dL (12.2-16.2); Immature Granulocytes % 0.8 %; Mean Corpuscular HGB Conc 31.9 g/dL (31.8-35.4); Mean Corpuscular Hemoglobin 27.9 pg (27.0-31.2); Mean Corpuscular Volume 87.6 fl (81-99); Nucleated Red Blood Cells % 0 %; Platelet Count 262 K/mm3 (142-424); Red Blood Count 4.12 M/mm3 (4.20-5.40); Red Cell Distribution Width-SD 48.0 fL; White Blood Count 3.7 K/mm3 (4.8-10.8)
[2025-03-24 11:07] LABS: Albumin Level 3.6 g/dl (3.5-5.0); Chloride 105 mmol/L (98-107); Potassium 3.7 mmoL/L (3.5-5.1); Sodium 139 mmol/L (136-145)
[2025-03-24 11:10] LABS: Alanine Aminotransferase 17 U/L (12-78); Albumin/Globulin Ratio 1.3 (1.1-1.8); Alkaline Phosphatase 101 U/L (38-126); Anion Gap 12.7 mEq/L (5-15); Aspartate Amino Transferase 23 U/L (14-36); Bilirubin,Total 0.2 mg/dl (0.2-1.3); Blood Urea Nitrogen 9 mg/dl (7-17); Calcium 9.0 mg/dl (8.4-10.2); Carbon Dioxide 25 mmol/L (22.0-30.0); Creatinine Clearance Estimated 60 mL/min (50-200); Creatinine,Serum 0.90 mg/dl (0.52-1.04); Estimated Glomerular Filt Rate 61 ml/min (>60); GFR (African American) 73 ML/MIN (>60); Globulin 2.8 g/dL (1.3-3.2); Glucose 109 mg/dl (74-100); Total Protein,Serum 6.4 g/dl (6.3-8.2)
[2025-03-24] MEDS: ONDANSETRON 4MG ODT 16 MG SL (11:21)
[2025-03-24 11:22] VITALS: BP 112/65; PULSE 103; RESP 20; TEMP 36.8; O2SAT 97
[2025-03-24] MEDS: FAMOTIDINE 20MG TABLET 20 MG PO (11:22)
[2025-03-24] MEDS: LORATADINE 10MG TABLET 10 MG PO (11:22)
[2025-03-24] MEDS: 0.9 % SODIUM CHLORIDE 100 ML 25 ML IV (11:22)
[2025-03-24] MEDS: DEXAMETHASONE 4MG TABLET 12 MG PO (11:22)
[2025-03-24] MEDS: SODIUM CHLORIDE 0.9% 10ML FLUSH SYRINGE 10 ML IV (11:35)
[2025-03-24 11:39] LABS: RBC Morphology Normal; Total Cells Counted 100
[2025-03-24 11:45] VITALS: BP 103/64; PULSE 75; RESP 20; O2SAT 97
[2025-03-24] MEDS: PACLITAXEL IV (11:45)
[2025-03-24] MEDS: WATER IV (11:45)
[2025-03-24] MEDS: DEXTROSE 5% IV (11:45)
[2025-03-24 12:15] VITALS: BP 110/62; PULSE 94; RESP 20; O2SAT 98
[2025-03-24 13:00] VITALS: BP 108/69; PULSE 88; RESP 20; O2SAT 97
[2025-03-24] MEDS: CARBOplatin 150 MG in 0.9 % SODIUM CHLORIDE 100 ML 230 MG IV (13:00)
[2025-03-24 13:35] VITALS: BP 127/70; PULSE 94; RESP 20; O2SAT 98
== END 2025-03-24 23:59 | disposition home or self-care (01) ==
LOC: INF 10:40
PROVIDERS: PCP Family Medicine; Visit Provider Internal Medicine Medical Oncology
DX: C34.12 Malignant neoplasm of upper lobe, left bronchus or lung (principal); Z51.11 Encounter for antineoplastic chemotherapy
CPT/HCPCS: 80053; 85007; 85025; 85027; 96413; 96415; 96417; J7060; J8540; J9045; J9267; Q0162

== ENCOUNTER 2025-03-31 11:05 | Outpatient (CLI) | payer MEDICARE, OTHER, SELFPAY ==
--- OUTSIDE RECORDS SUMMARY | 2025-03-31 11:08 | XMS_ITS | Data Portability ---
Author Organization [facility] Address [address] [facility] [address] [place] [address] Assessment Encounter Date Assessment Date Assessment LastModified [...] Updated DateTime 08/26/2018 167.64 cm 29.1 kg/m2 71317.63 g 122/82 mm[Hg] Kamrynbrendan BargerReyes [facility] 08/26/2018 13:05:29 Social History Question Answer Notes LastModified by Organizat ion Details LastModified Time Tobacco Smoking Status Never Smoker Kamrynbrendan BargerReyes [facility] 08/26/2018 13:04:48 What Was The Date Of [...] ICD10 Code Diagnosis IMO Codes Diagnosis Note [id number] DIEGO BENITEZ MD [facility] [address] [place] [address] 08/26/2018 11:44:08 08/27/2018 15:17:56 Carpal tunnel syndrome of right wrist 0701123599 61799 G56.01 [id number] DIEGO BENITEZ MD SURGERY SCHEDULE [address] [place] [address] 09/06/2018 10:35:19 09/06/2018 10:36:44 [id number] DIEGO BENITEZ MD [facility] [address] [address] 09/20/2018 11:05:14 09/20/2018 14:07:43 Health Concerns Section Related Observation LastModified by Organization Detai ls LastModified Time None Recorded Concern Status LastModified by Organization Details LastModified Time None Recorded Advance Directives Directive None Recorded Payers Insurance Date Sequence Insurance Name Policy Number Policy Macdonald Covered Member ID Macdonald Member ID Guarantor Name 03/24/2020 1 [place] Liza Christiansen [id number] Liza Christiansen 09/17/2018 2 FOR LIFE ( - MEDICARE SUPPLEMENT) Liza Christiansen [id number] Liza Christiansen Notes Date Note Type Note [...] tingling and weakness. DIEGO BENITEZ MD [address] [place], [address], [facility] 08/26/2018 13:11:50 OBGyn Episode No OBEpisode recorded.
--- OUTSIDE RECORDS SUMMARY | 2025-03-31 11:08 | XMS_ITS | Encounter Summary ---
Author Organization Healthcare Address [address] [place] [address] Care Team Providers Care Interviewing Clerk Name Role Phone Quinten Anderson MD Primary Care Provider [phone] Encounter Details Date Type Department Care Team (Late st Contact Info) Description 08/26/2024 Orders Only External Location [address] [place] [address] Provider, External Social History Tobacco [...] [facility] [place] [address] Sari Murry [facility] 800 [place] [address] 07/30/2025 9:30 AM EDT Office Visit [facility] 7[address] [facility], 2nd [place] [address] Parish Lou MD [address] [facility] [address] [address] documented as of this encounter [...] on filedocumented in this encounter Care Teams Interviewing Clerk Relationship Specialty Start Date End Date Quinten Anderson MD [address] [place] [address] #1 [address]1 [place] [address] PCP - General 09/10/20 documented as of this encounter
--- OUTSIDE RECORDS SUMMARY | 2025-03-31 11:08 | XMS_ITS | Clinical Summary ---
Author Organization [facility] ystem Address [address] [place] [address] Care Team Providers Care District Representative Name Role Phone Unavailable Primary Care Provider [...]
--- OUTSIDE RECORDS SUMMARY | 2025-03-31 11:08 | XMS_ITS | Encounter Summary ---
Author Organization Healthcare Address [address] [place] [address] Care Team Providers Care Pharmacy Sales Representative Name Role Phone Quinten Anderson MD Primary Care Provider [phone] Encounter Details Date Type Department Care Team (Late st Contact Info) Description 12/01/2024 Orders Only External Location [address] [place] [address] Provider, External Social History Tobacco [...] [facility] [place] [address] S[address] Murry [facility] 800 [place] [address] 07/30/2025 9:30 AM EDT Office Visit [facility] [address] [facility], 2nd [place] [address] Parish Lou MD 800 [facility] Sari Murry [address] [address] documented as of this encounter [...] on filedocumented in this encounter Care Teams Pharmacy Sales Representative Relationship Specialty Start Date End Date Quinten Anderson MD [address] [place] [address] #1 [address]1 [place] [address] PCP - General 09/10/20 documented as of this encounter
--- OUTSIDE RECORDS SUMMARY | 2025-03-31 11:08 | XMS_ITS | Encounter Summary ---
Author Organization Healthcare Address [address] [place] [address] Care Team Providers Care Billing Representative Name Role Phone Quinten [place] MD Primary Care Provider [phone] Encounter Details Date Type Department Care Team (Late st Contact Info) Description 12/15/2022 Orders Only External Location [address] [place] [phone] Provider, External Social History Tobacco Use Types [...] [facility] [place] [address] Sari Murry [facility] 800 [place] [address] 07/30/2025 9:30 AM EDT Office Visit [facility] 740 [facility], 2nd [place] [address] Parish Lou MD 800 [facility] [address] [address] documented as of this encounter [...] on filedocumented in this encounter Care Teams Billing Representative Relationship Specialty Start Date End Date Quinten [place] MD [address] [place] [address] #1 #1 [place] [address] PCP - General 09/10/20 documented as of this encounter
--- OUTSIDE RECORDS SUMMARY | 2025-03-31 11:08 | XMS_ITS | Encounter Summary ---
Author Organization Healthcare Address [address] [place] [address] Care Team Providers Care Corporate Planning Manager Name Role Phone Quinten [place] MD Primary Care Provider [phone] Encounter Details Date Type Department Care Team (Late st Contact Info) Description 11/22/2022 Orders Only External Location [address] [place] [phone] Provider, External Social History Tobacco Use [...] [facility] [place] [address] Sari Murry [facility] 800 [place] [address] 07/30/2025 9:30 AM EDT Office Visit [facility] 740 [facility], 2nd [place] [phone] Parish Lou MD 800 [facility] [address] [address] documented as of this encounter [...] on filedocumented in this encounter Care Teams Corporate Planning Manager Relationship Specialty Start Date End Date Quinten [place] MD [address] [place] [address] #1 #1 [place] [address] PCP - General 09/10/20 documented as of this encounter
--- OUTSIDE RECORDS SUMMARY | 2025-03-31 11:08 | XMS_ITS | Encounter Summary ---
Author Organization Healthcare Address [address] [place] [address] Care Team Providers Care Brake Reliner Name Role Phone Quinten [place] MD Primary Care Provider [phone] Encounter Details Date Type Department Care Team (Late st Contact Info) Description 01/08/2025 Orders Only External Location [address] [place] [phone] Provider, External Social History Tobacco Use [...] [facility] [place] [address] Sari Murry [facility] 800 [place] [address] 07/30/2025 9:30 AM EDT Office Visit [facility] 740 [facility], 2nd [place] [phone] Parish Lou MD 800 [facility] Sari Murry [address] [address] documented as of this encounter [...] on filedocumented in this encounter Care Teams Brake Reliner Relationship Specialty Start Date End Date Quinten [place] MD [address] [place] [address] #1 #1 [place] [address] PCP - General 09/10/20 documented as of this encounter
--- OUTSIDE RECORDS SUMMARY | 2025-03-31 11:08 | XMS_ITS | Encounter Summary ---
Author Organization Healthcare Address [address] [place] [address] Care Team Providers Care Vp Securities Name Role Phone Quinten [place] MD Primary Care Provider [phone] Encounter Details Date Type Department Care Team (Late st Contact Info) Description 10/11/2022 Orders Only External Location [address] [place] [phone] Provider, External Social History Tobacco Use [...] Breast [facility] [place] [address] Sari Murry [facility] 800 [place] [address] 07/30/2025 9:30 AM EDT Office Visit [facility] 740 [facility], 2nd [place] [phone] Parish Lou MD 800 [facility] S[address] [address] documented as of this encounter [...] on filedocumented in this encounter Care Teams Vp Securities Relationship Specialty Start Date End Date Quinten [place] MD [address] [place] [address] #1 #1 [place] [address] PCP - General 09/10/20 documented as of this encounter
--- OUTSIDE RECORDS SUMMARY | 2025-03-31 11:08 | XMS_ITS | Clinical Summary ---
Author Organization Healthcare Address [address] [place] [address] Care Team Providers Care Child Nutrition Manager Name Role Phone Quinten [place] MD Primary Care Provider [phone] Allergies Active Allergy Reactions Criticality Noted Date [...] from 01/29/2025:Stage IIA(cT3, cN0, cM0, G2, ER+, WY+, HER2-) - Signed by Parish Lou MD on 02/08/2025 Encounters Date Type Department Care Team Description 02/03/2025 Travel 01/29/2025 11:00 AM EDT Office Visit [facility] 740 [facility], 2nd [place] [address] Parish Lou MD Malignant neoplasm of upper-outer quadrant of left breast in female, estrogen receptor positive (Primary Dx) 01/29/2025 Travel 01/22/2025 Telephone [facility] [address] [place] [address] Liudmila Bravo, RN 01/15/2025 2:27 PM EDT - 01/15/2025 11:59 PM EDT Hospital Encounter [facility] [address] [place] [address] Abnormal findings on diagnostic imaging of breast Discharge Disposition: Home or Self Care 01/15/2025 1:51 PM EDT - 01/15/2025 2:26 PM EDT Hospital Encounter [facility] [address] [facility] [address] [place] [address] Abnormal findings on diagnostic imaging of breast Discharge Disposition: Home or Self Care 01/15/2025 Travel 01/08/2025 Orders Only External Location 800 [place] [address] Provider, External 01/07/2025 Orders Only [facility]AV [facility] [address] [facility] [address] [place] [address] Liudmila Bravo, RN 01/07/2025 Telephone [facility] [address] [facility] [address] [place] [address] Liudmila Bravo, RN 01/07/2025 Telephone [facility]AV [facility] [address] [facility] [address] [place] [address] Liudmila Bravo, RN 01/06/2025 1:15 PM EDT - 01/06/2025 11:59 PM EDT Hospital Encounter [facility] 234 S[address] Murry [facility] [address] [place] [address] Abnormal findings on diagnostic imaging of breast Discharge Disposition: Home or Self Care 01/06/2025 11:00 AM EDT - 01/06/2025 1:14 PM EDT Hospital Encounter PAV [facility] [address] S[address] Murry [facility] [address] [place] [address] Abnormal findings on diagnostic imaging of breast Discharge Disposition: Home or Self Care 01/06/2025 10:00 AM EDT - 01/06/2025 10:59 AM EDT Hospital Encounter PAV [facility] 234 Sari Murry [facility] [address] [place] [address] Abnormal findings on diagnostic imaging of breast Discharge Disposition: Home or Self Care 01/06/2025 Travel from Last 3 Months Family History Medical [...] [facility] Care [facility] Chance Murry Building [address] [place] [address] 07/30/2025 9:30 AM EDT Office Visit [facility] [address] , 2[address] [place] [address] Parish Lou MD 800 [facility] Sari Murry [address] [place] [address] Health Maintenance Due Date Last [...] or (1 - 1-dose 75+ series) 2021 [id number] Vaccine (3 - season) 2024 04/08/2021, 07/07/2020 [...] documented in the patient's chart at the [facility]. Drafted by Yee [...] Ultrasound, Mamm ography Addenda Addendum by Yee eHrnandez MD on 01/22/2025 11:44 AM EDT Addendum: [...] documented in the patient's chart at the [facility]. Drafted by Yee Hernandez [...] PM EDT) Case Report Surgical Pathology Case: [id number] Authorizing Provider: Quinten [place] MD Collected: 01/15/2025 1410 Ordering Location: [facility] Received: 01/15/2025 1600 Pathologist: Marianela Ugarte MD Specimen: Breast, Left, Left breast solid mass 2:00-4:00 spans 8 cm 10:50 AM EDT [facility] Final Diagnosis A. 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 Clinical Information R92.8 - Abnormal findings on diagnostic imaging of breast [ICD-10-CM] 10:[address] [facility] Special and Immunohistochemical Stains Special Stain: There are no tasks to display for the given criteria. IHC: A1-4 ER Quantitative (%) A1-5 WY (Progesterone) Quantitative (%) A1-6 HER2/PALMER Quantitative A1-7 HER2 FISH Extra Slide A1-8 HER2 FISH Extra Slide A1-9 HER2 FISH Extra Slide All controls show appropriate reactivity. All immunohistochemist ry, in situ hybridization, and histochemical tests were developed by and are performed at the [facility], [address] [place] [address]. All tests reported here, except those addressing [...] false negativity on decalcified specimens. 10:[address] [facility] Gross Description A. LEFT BREAST SOLID [...] Time: 1m Pat Austin 10:50 AM EDT [facility] Intradepartmental Consultation with Agreement This case was seen in consultation with Dr. Chacon, who concurs with the above diagnosis. 10:50 AM EDT [facility] Note: A resident was involved in the service. I attest I examined the relevant preparations for the specimens and confirmed the diagnosis or interpretation. 10:50 AM EDT [facility] Tissue Left breast structure / Unknown 01/15/2025 2:10 PM EDT 01/15/2025 4:00 PM EDT us Quinten [place] MD LAB PATHOLOGY ORDERABLES Final Result Performing Organization Address City/State/[facility] Co de Phone Number [facility] [address] [place] [address] * MR NEURO OUTSIDE IMAGES (01/08/2025 8:48 [...] presents following [facility] TECHNIQUE: Bilateral diagnostic [...] presents following partially [facility] TECHNIQUE: Bilateral diagnostic [...] Anatomical Region Laterality Modality Breast Bilateral Mammography, h er Impressions 01/06/2025 3:17 PM EDT Right [...] presents following partially visualized [facility] TECHNIQUE: Bilateral diagnostic [...] Result from Last 3 Months [place] [address] Care Teams Child Nutrition Manager Relationship Specialty Start Date End Date Quinten [place] MD [address] [place] [address] #1 #1 [place] [address] PCP - General 09/10/20
--- OUTSIDE RECORDS SUMMARY | 2025-03-31 11:08 | XMS_ITS | Encounter Summary ---
Author Organization Healthcare Address [address] [place] [address] Care Team Providers Care Profile Shaper Operator Name Role Phone Quinten [place] MD Primary Care Provider [phone] Encounter Details Date Type Department Care Team (Late st Contact Info) Description 11/10/2022 Orders Only External Location [address] [place] [phone] Provider, External Social History Tobacco Use Types [...] [facility] [place] [address] S[address] Murry [facility] 800 [place] [address] 07/30/2025 9:30 AM EDT Office Visit [facility] 740 [facility], 2nd [place] [phone] Parish Lou MD 800 [facility] [address] [address] documented as of this encounter [...] on filedocumented in this encounter Care Teams Profile Shaper Operator Relationship Specialty Start Date End Date Quinten [place] MD [address] [place] [address] #1 #1 [place] [address] PCP - General 09/10/20 documented as of this encounter
--- OUTSIDE RECORDS SUMMARY | 2025-03-31 11:08 | XMS_ITS | Encounter Summary ---
Author Organization Healthcare Address [address] [place] [address] Care Team Providers Care Breakdown Person Name Role Phone Quinten [place] MD Primary Care Provider [phone] Encounter Details Date Type Department Care Team [...] [facility] [place] [address] Sari Murry [facility] 800 [place] [address] 07/30/2025 9:30 AM EDT Office Visit [facility] 740 [facility], 2nd [place] [address] Parish Lou MD 800 [facility] [address] [phone] documented as of this encounter Visit Diagnoses Not on filedocumented in this encounter Additional Health Concerns Assessment Noted Time A fall risk assessment has been complete d for the patient 01/29/2025 11:19 AM EDT A Body Mass Index follow-up plan has been documented for the patient 02/08/2025 9:17 PM EDT documented as of this encounter Care Teams Breakdown Person Relationship Specialty Start Date End Date Quinten [place] MD [address] [place] [address] #1 #1 [place] [address] PCP - General 09/10/20 documented as of this encounter
--- OUTSIDE RECORDS SUMMARY | 2025-03-31 11:08 | XMS_ITS | Encounter Summary ---
Author Organization Healthcare Address [address] [place] [address] Care Team Providers Care Wood Carving Lathe Operator Name Role Phone Quinten [place] MD Primary Care Provider [phone] Encounter Details Date Type Department Care Team (Late st Contact Info) Description 12/15/2022 Orders Only External Location 800 [place] [address] Marty Hargrove MD 201 [facility] [address] [place] [address] Social History Tobacco Use Types Packs/Day Years [...] [facility] [place] [address] [address] Mur[address] Building [address] [place] [address] 07/30/2025 9:30 AM EDT Office Visit [facility] 740 [facility], 2nd [place] [phone] Parish Lou MD 800 [facility] Sari Murry [address] [place] [address] documented as of this encounter [...] on filedocumented in this encounter Care Teams Wood Carving Lathe Operator Relationship Specialty Start Date End Date Quinten [place] MD [address] [place] [address] #1 #1 [place] [address] PCP - General 09/10/20 documented as of this encounter
[2025-03-31 11:12] VITALS: BMI 35.4
[2025-03-31 11:19] LABS: Hematocrit 36.5 % (37.0-47.0); Hemoglobin 11.8 g/dL (12.2-16.2); Immature Granulocytes % 0.7 %; Mean Corpuscular HGB Conc 32.3 g/dL (31.8-35.4); Mean Corpuscular Hemoglobin 28.3 pg (27.0-31.2); Mean Corpuscular Volume 87.5 fl (81-99); Nucleated Red Blood Cells % 0 %; Platelet Count 242 K/mm3 (142-424); Red Blood Count 4.17 M/mm3 (4.20-5.40); Red Cell Distribution Width-SD 49.1 fL; White Blood Count 3.0 K/mm3 (4.8-10.8)
[2025-03-31 11:29] LABS: Albumin Level 3.9 g/dl (3.5-5.0); Chloride 107 mmol/L (98-107); Potassium 4.5 mmoL/L (3.5-5.1); Sodium 137 mmol/L (136-145)
[2025-03-31 11:32] LABS: Alanine Aminotransferase 17 U/L (12-78); Albumin/Globulin Ratio 1.3 (1.1-1.8); Alkaline Phosphatase 74 U/L (38-126); Anion Gap 13.5 mEq/L (5-15); Aspartate Amino Transferase 30 U/L (14-36); Bilirubin,Total 0.6 mg/dl (0.2-1.3); Blood Urea Nitrogen 9 mg/dl (7-17); Calcium 8.6 mg/dl (8.4-10.2); Carbon Dioxide 21 mmol/L (22.0-30.0); Creatinine Clearance Estimated 64 mL/min (50-200); Creatinine,Serum 0.90 mg/dl (0.52-1.04); Estimated Glomerular Filt Rate 61 ml/min (>60); GFR (African American) 73 ML/MIN (>60); Globulin 2.9 g/dL (1.3-3.2); Glucose 99 mg/dl (74-100); Total Protein,Serum 6.8 g/dl (6.3-8.2)
[2025-03-31] MEDS: LORATADINE 10MG TABLET 10 MG PO (11:38)
[2025-03-31] MEDS: FAMOTIDINE 20MG TABLET 20 MG (11:38)
[2025-03-31] MEDS: DEXAMETHASONE 4MG TABLET 12 MG (11:38)
[2025-03-31] MEDS: ONDANSETRON 4MG ODT 16 MG (11:39)
[2025-03-31 11:56] LABS: Hypochromasia 1+; Total Cells Counted 100
[2025-03-31] MEDS: SODIUM CHLORIDE 0.9% 100ML BAG 100 ML IV (12:08)
[2025-03-31 12:15] VITALS: BP 126/66; PULSE 91; RESP 20; O2SAT 98
[2025-03-31 12:45] VITALS: BP 129/63; PULSE 90; RESP 20; O2SAT 100
[2025-03-31 13:15] VITALS: BP 134/57; PULSE 90
[2025-03-31 13:32] VITALS: BP 133/59; PULSE 91
[2025-03-31 14:10] VITALS: BP 137/70; PULSE 92; O2SAT 97
== END 2025-03-31 23:59 | disposition home or self-care (01) ==
LOC: INF 11:06
PROVIDERS: PCP Family Medicine; Visit Provider Internal Medicine Medical Oncology
DX: C34.12 Malignant neoplasm of upper lobe, left bronchus or lung (principal); Z51.11 Encounter for antineoplastic chemotherapy
CPT/HCPCS: 80053; 85007; 85025; 85027; 96413; 96415; 96417; J7060; J8540; J9045; J9267; Q0162

== ENCOUNTER 2025-04-07 11:16 | Outpatient (CLI) | payer MEDICARE, OTHER, SELFPAY ==
[2025-04-07 11:17] VITALS: BMI 35.4
[2025-04-07 11:36] LABS: Hematocrit 32.8 % (37.0-47.0); Hemoglobin 10.9 g/dL (12.2-16.2); Immature Granulocytes % 0.6 %; Mean Corpuscular HGB Conc 33.2 g/dL (31.8-35.4); Mean Corpuscular Hemoglobin 28.7 pg (27.0-31.2); Mean Corpuscular Volume 86.3 fl (81-99); Nucleated Red Blood Cells % 0 %; Platelet Count 220 K/mm3 (142-424); Red Blood Count 3.80 M/mm3 (4.20-5.40); Red Cell Distribution Width-SD 49.1 fL; White Blood Count 3.1 K/mm3 (4.8-10.8)
[2025-04-07 11:43] LABS: Alanine Aminotransferase 15 U/L (12-78); Albumin Level 3.8 g/dl (3.5-5.0); Albumin/Globulin Ratio 1.4 (1.1-1.8); Alkaline Phosphatase 95 U/L (38-126); Anion Gap 11.8 mEq/L (5-15); Aspartate Amino Transferase 20 U/L (14-36); Bilirubin,Total 0.3 mg/dl (0.2-1.3); Blood Urea Nitrogen 11 mg/dl (7-17); Calcium 9.2 mg/dl (8.4-10.2); Carbon Dioxide 24 mmol/L (22.0-30.0); Chloride 105 mmol/L (98-107); Creatinine Clearance Estimated 60 mL/min (50-200); Creatinine,Serum 0.90 mg/dl (0.52-1.04); Estimated Glomerular Filt Rate 61 ml/min (>60); GFR (African American) 73 ML/MIN (>60); Globulin 2.8 g/dL (1.3-3.2); Glucose 100 mg/dl (74-100); Potassium 3.8 mmoL/L (3.5-5.1); Sodium 137 mmol/L (136-145); Total Protein,Serum 6.6 g/dl (6.3-8.2)
[2025-04-07] MEDS: SODIUM CHLORIDE 0.9% 100ML BAG 100 ML IV (12:04)
[2025-04-07] MEDS: DEXAMETHASONE 4MG TABLET 12 MG PO (12:04)
[2025-04-07 12:05] VITALS: BP 106/72; PULSE 76; RESP 20; TEMP 36.5; O2SAT 98
[2025-04-07] MEDS: ONDANSETRON 4MG ODT 16 MG SL (12:05)
[2025-04-07] MEDS: FAMOTIDINE 20MG TABLET 20 MG PO (12:05)
[2025-04-07] MEDS: LORATADINE 10MG TABLET 10 MG PO (12:05)
[2025-04-07] MEDS: SODIUM CHLORIDE 0.9% 10ML FLUSH SYRINGE 10 ML IV (12:06)
[2025-04-07 12:31] VITALS: BP 121/61; PULSE 68; RESP 20; O2SAT 98
[2025-04-07] MEDS: CARBOplatin 150 MG in 0.9 % SODIUM CHLORIDE 100 ML 230 MG IV (13:40)
[2025-04-07 13:45] VITALS: BP 154/66; PULSE 69; RESP 20; O2SAT 97
[2025-04-07 13:57] LABS: Total Cells Counted 100
[2025-04-07 13:58] LABS: RBC Morphology Normal
[2025-04-07 14:30] VITALS: BP 123/83; PULSE 85; RESP 20; O2SAT 98
== END 2025-04-07 23:59 | disposition home or self-care (01) ==
LOC: INF 11:16
PROVIDERS: PCP Family Medicine; Visit Provider Internal Medicine Medical Oncology
DX: C34.12 Malignant neoplasm of upper lobe, left bronchus or lung (principal); Z51.11 Encounter for antineoplastic chemotherapy
CPT/HCPCS: 80053; 85007; 85025; 85027; 96413; 96415; 96417; J7060; J8540; J9045; J9267; Q0162

== ENCOUNTER 2025-04-14 12:52 | Outpatient (CLI) | payer MEDICARE, OTHER, SELFPAY ==
--- OUTSIDE RECORDS SUMMARY | 2025-04-14 12:57 | XMS_ITS | Encounter Summary ---
Author Organization Healthcare Address [address] [place] [address] Care Team Providers Care Sisal Operator Name Role Phone Quinten [place] MD Primary Care Provider Encounter Details Date Type Department Care Team (Late st Contact Info) Description 12/01/2024 Orders Only External Location 800 [place] [address] Provider, External Social History Tobacco [...] [facility] [place] [address] Sari Murry [facility] 800 [place] [address] 07/30/2025 9:30 AM EDT Office Visit [facility] [address] [facility], 2nd [place] [phone] Parish Lou MD [address] [facility] Sari Murry [address] [address] documented as of this encounter [...] on filedocumented in this encounter Care Teams Sisal Operator Relationship Specialty Start Date End Date Quinten [place] MD [address] [place] [address] #1 #1 [place] [address] PCP - General 09/10/20 documented as of this encounter
--- OUTSIDE RECORDS SUMMARY | 2025-04-14 12:57 | XMS_ITS ---
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 METABOLIC PANEL (14) 2023-06-11 410372 LIPID PANEL 2023-06-11 838955 T4 AND TSH Laboratory Results Date LOINC Test Value Unit Reference Range Interpre tation 2023-06-11 6690-2 WBC 7.4 X10E3/UL 3.4-10.8 2023-06-11 789-8 RBC 5.29 X10E6/UL 3.77-5.28 H 2023-06-11 718-7 HEMOGLOBIN 14.4 G/DL 11.1-15.9 2023-06-11 4544-3 HEMATOCRIT 44.4 % 34.0-46.6 2023-06-11 787-2 MCV 84 FL 79-97 2023-06-11 785-6 MCH 27.2 PG 26.6-33.0 2023-06-11 786-4 MCHC 32.4 G/DL 31.5-35.7 2023-06-11 788-0 RDW 13.2 % 11.7-15.4 2023-06-11 777-3 PLATELETS 335 X10E3/UL 674-687 1057-02-12 770-8 NEUTROPHILS 63 % 2023-06-11 736-9 LYMPHS 25 % 2023-06-11 5905-5 MONOCYTES 7 % 2023-06-11 713-8 EOS 3 % 2023-06-11 706-2 BASOS 1 % 2023-06-11 751-8 NEUTROPHILS (ABSOLUTE) 4.8 X10E3/UL 1.4-7.0 2023-06-11 731-0 LYMPHS (ABSOLUTE) 1.8 X10E3/UL 0.7-3.1 2023-06-11 742-7 MONOCYTES(ABSOLUTE) .5 X10E3/UL 0.1-0.9 2023-06-11 711-2 EOS (ABSOLUTE) .2 X10E3/UL 0.0-0.4 2023-06-11 704-7 BASO (ABSOLUTE) .1 X10E3/UL 0.0-0.2 2023-06-11 39834-1 IMMATURE GRANULOCYTES 1 % 2023-06-11 97526-4 IMMATURE GRANS (ABS) 0 X10E3/UL 0.0-0.1 2023-06-11 2345-7 GLUCOSE 126 MG/DL 70-99 H 2023-06-11 3094-0 BUN 16 MG/DL 8-27 2023-06-11 2160-0 CREATININE 1.04 MG/DL 0.57-1.00 H 2023-06-11 18275-9 EGFR 56 ML/MIN/1.7 3 >59 L 2023-06-11 3097-3 BUN/CREATININE RATIO 15 12-2023-06-11 2951-2 SODIUM 144 MMOL/L 013-525 9812-02-12 2823-3 POTASSIUM 4.2 MMOL/L 3.5-5.2 2023-06-11 2075-0 CHLORIDE 106 MMOL/L 96-106 2023-06-11 2028-9 CARBON DIOXIDE, TOTAL 23 MMOL/L 20-29 2023-06-11 57370-1 CALCIUM 9.3 MG/DL 8.7-10.3 2023-06-11 2885-2 PROTEIN, TOTAL 6.3 G/DL 6.0-8.5 2023-06-11 1751-7 ALBUMIN 4.1 G/DL 3.8-4.8 2023-06-11 13372-9 GLOBULIN, TOTAL 2.2 G/DL 1.5-4.5 2023-06-11 1759-0 A/G RATIO 1.9 1.2-2.2 2023-06-11 1975-2 BILIRUBIN, TOTAL .2 MG/DL 0.0-1.2 2023-06-11 6768-6 ALKALINE PHOSPHATASE 148 IU/L 44-121 H 2023-06-11 1920-8 AST (SGOT) 14 IU/L 0-40 2023-06-11 1742-6 ALT (SGPT) 9 IU/L 0-32 2023-06-11 2093-3 CHOLESTEROL, TOTAL 219 MG/DL 100-199 H 2023-06-11 2571-8 TRIGLYCERIDES 100 MG/DL 0-149 2023-06-11 2085-9 HDL CHOLESTEROL 63 MG/DL >39 2023-06-11 99028-1 VLDL CHOLESTEROL PRETTY 18 MG/DL 5-40 2023-06-11 10267-9 LDL CHOL CALC ([facility]) 138 MG/DL 0-99 H 2023-06-11 70740-4 TSH 3.4 UIU/ML 0.450-4.500 2023-06-11 3026-2 THYROXINE (T4) 5.8 UG/DL 4.5-12.0
--- OUTSIDE RECORDS SUMMARY | 2025-04-14 12:57 | XMS_ITS | Encounter Summary ---
Author Organization Healthcare Address [address] [place] [address] Care Team Providers Care Chainstitch Hemmer Name Role Phone Quinten [place] MD Primary Care Provider [phone] Encounter Details Date Type Department Care Team (Late st Contact Info) Description 12/15/2022 Orders Only External Location 800 [place] [phone] Marty Hargrove MD 201 [facility] [address] [place] [address] Social History Tobacco Use Types Packs/Day Years [...] [facility] [place] [address] [address] Building 800 [place] [address] 07/30/2025 9:30 AM EDT Office Visit [facility] 740 [facility], 2nd [place] [phone] Parish Lou MD 800 [facility] Sari Murry [address] [place] [address] documented as of this encounter [...] on filedocumented in this encounter Care Teams Chainstitch Hemmer Relationship Specialty Start Date End Date Quinten [place] MD [address] [place] [address] #1 #1 [place] [address] PCP - General 09/10/20 documented as of this encounter
--- OUTSIDE RECORDS SUMMARY | 2025-04-14 12:58 | XMS_ITS | Encounter Summary ---
Author Organization Healthcare Address [address] [place] [address] Care Team Providers Care Decorating Machine Tender Name Role Phone Quinten [place] MD Primary Care Provider [phone] Encounter Details Date Type Department Care Team (Late st Contact Info) Description 11/22/2022 Orders Only External Location [address] [place] [phone] Provider, External Social History Tobacco Use [...] Center [facility] [place] [address] Sari Murry [facility] 800 [place] [address] 07/30/2025 9:30 AM EDT Office Visit [facility] 740 [facility], 2nd [place] [address] Parish Lou MD 800 [facility] [address] [address] documented as of this [...] on filedocumented in this encounter Care Teams Decorating Machine Tender Relationship Specialty Start Date End Date Quinten [place] MD [address] [place] [address] #1 #1 [place] [address] PCP - General 09/10/20 documented as of this encounter
--- OUTSIDE RECORDS SUMMARY | 2025-04-14 12:58 | XMS_ITS | Encounter Summary ---
Author Organization Healthcare Address [address] [place] [address] Care Team Providers Care Home Care Provider Name Role Phone Quinten [place] MD Primary Care Provider [phone] Encounter Details Date Type Department Care Team (Late st Contact Info) Description 10/11/2022 Orders Only External Location [address] [place] [phone] Provider, External Social History Tobacco Use [...] Center [facility] [place] [address] Sari Murry [facility] 800 [place] [address] 07/30/2025 9:30 AM EDT Office Visit [facility] [address] [facility], 2nd [place] [phone] Parish Lou MD [address] [facility] [address] [address] documented as of this encounter [...] on filedocumented in this encounter Care Teams Home Care Provider Relationship Specialty Start Date End Date Quinten [place] MD [address] [place] [address] #1 #1 [place] [address] PCP - General 09/10/20 documented as of this encounter
--- OUTSIDE RECORDS SUMMARY | 2025-04-14 12:58 | XMS_ITS | Encounter Summary ---
Author Organization Healthcare Address [address] [place] [address] Care Team Providers Care Doctor Of Podiatric Medicine Name Role Phone Quinten [place] MD Primary Care Provider [phone] Encounter Details Date Type Department Care Team (Late st Contact Info) Description 11/10/2022 Orders Only External Location [address] [place] [phone] Provider, External Social History Tobacco Use Types [...] Breast Care [facility] [place] [address] Sari Murry [facility] 800 [place] [address] 07/30/2025 9:30 AM EDT Office Visit [facility] 740 [facility], 2nd [place] [phone] Parish Lou MD 800 [facility] [address] [address] documented as of this encounter [...] on filedocumented in this encounter Care Teams Doctor Of Podiatric Medicine Relationship Specialty Start Date End Date Quinten [place] MD [address] [place] [address] #1 #1 [place] [address] PCP - General 09/10/20 documented as of this encounter
--- OUTSIDE RECORDS SUMMARY | 2025-04-14 12:58 | XMS_ITS | Encounter Summary ---
Author Organization Healthcare Address [address] [place] [address] Care Team Providers Care Human Resources Operations Coordinator Name Role Phone Quinten Anderson MD Primary Care Provider [phone] Encounter Details Date Type Department Care Team (Late st Contact Info) Description 08/26/2024 Orders Only External Location [address] [place], [...] [facility] [place] [address] Sari Murry [facility] 800 [place] [address] 07/30/2025 9:30 AM EDT Office Visit [facility] [address] [facility], 2nd [place] [phone] Parish Lou MD [address] [facility] [address] [address] documented as of this encounter [...] on filedocumented in this encounter Care Teams Human Resources Operations Coordinator Relationship Specialty Start Date End Date Quinten Anderson MD [address] [place] [address] [address]1 [address]1 [place] [address] PCP - General 09/10/20 documented as of this encounter
--- OUTSIDE RECORDS SUMMARY | 2025-04-14 12:58 | XMS_ITS | Encounter Summary ---
Author Organization Healthcare Address [address] [place] [address] Care Team Providers Care Pharmacy Intern Name Role Phone Quinten Anderson MD Primary Care Provider [phone] Encounter Details Date Type Department Care Team (Late st Contact Info) Description 12/15/2022 Orders Only External Location 800 [place] [phone] Provider, External Social History Tobacco Use Types [...] [facility] [place] [address] Sari Murry [facility] 800 [place] [address] 07/30/2025 9:30 AM EDT Office Visit [facility] 7[address] [facility], 2nd [place] [phone] Parish Lou MD 800 [facility] [address] [address] documented as of this encounter [...] filedocumented in this encounter Care Teams Pharmacy Intern Relationship Specialty Start Date End Date Quinten Anderson MD [address] [place] [address] [address]1 [address]1 [place] [phone] PCP - General 09/10/20 documented as of this encounter
--- OUTSIDE RECORDS SUMMARY | 2025-04-14 12:58 | XMS_ITS | Clinical Summary ---
Author Organization Healthcare Address [address] [place] [address] Care Team Providers Care Box Hinge And Lock Attacher Name Role Phone Quinten Anderson MD Primary Care Provider [phone] Allergies Active Allergy Reactions Criticality Noted Date [...] from 01/29/2025:Stage IIA(cT3, cN0, cM0, G2, ER+, AR+, HER2-) - Signed by Parish Lou MD on 02/08/2025 Encounters Date Type Department Care Team Description 02/03/2025 Travel 01/29/2025 11:00 AM EDT Office Visit [facility] 740 [facility], 2nd [place] [address] Parish Lou MD Malignant neoplasm of upper-outer quadrant of left breast in female, estrogen receptor positive (Primary Dx) 01/29/2025 Travel 01/22/[address] [facility] [address] S[address] [facility] 800 [place] [address] Liudmila Bravo RN 01/15/2025 2:27 PM EDT - 01/15/2025 11:59 PM EDT Hospital Encounter PAV [facility] 234 [facility] 800 [place] [address] Abnormal findings on diagnostic imaging of breast Discharge Disposition: Home or Self Care 01/15/2025 1:51 PM EDT - 01/15/2025 2:26 PM EDT Hospital Encounter PAV [facility] 234 [facility] 800 [place] [address] Abnormal findings on diagnostic imaging of breast Discharge Disposition: Home or Self Care 01/15/2025 Travel from Last 3 Months Family History [...] Breast Care Center [facility] [address] [place] [address] 07/30/2025 9:30 AM EDT Office Visit [facility] 740 [facility], 2nd [place] [address] Parish Lou MD 800 [facility] Sari Murry [address] Alexis [address] [place] [address] Health Maintenance Due Date Last [...] or (1 - 1-dose 75+ series) 2021 [id number] Vaccine (3 - season) 2024 04/08/2021, 07/07/2020 [facility]-Influenza Vaccine (#1) 12/29/202402/08, 03/28/2016 [facility]-DTaP,Tdap,and Td Vaccines (2 - Td or Tdap) 01/25/2035 01/25/2025 [facility]-Breast Cancer Screening Discontinued 01/06/2025 [facility]-Obesity Intervention Completed 01/29/2025 HPV Vaccines (No Doses Required) Completed [facility]-HIB Vaccines Aged Out No longer e [...] imaging of breast from Last 3 Months or Most Recently Relevant to Health Maintenance Results * Mammography Breast Post Biopsy Clip [...] documented in the patient's chart at the [facility]. Drafted [...] PM EDT) Case Report Surgical Pathology Case: [id number] Authorizing Provider: Quinten Anderson MD Collected: 01/15/2025 1410 Ordering Location: [facility] Received: 01/15/2025 1600 Pathologist: Marianela Ugarte MD Specimen: Breast, Left, Left breast solid mass 2:00-4:00 spans 8 cm 5 10:50 AM EDT [facility] Final Diagnosis A. 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 - TUMOR INVOLVES SEVEN OF SEVEN CORES (7/7) - SEE BIOMARKER CHECKLIST 10:50 AM EDT [facility] at 1050 EDT Synoptic [...] Drug Administration (FDA) cleared (test / vendor): [facility] Primary Antibody: SP1 PgR Testing Methodology: PgR Test Type: Food and Drug Administration (FDA) cleared (test / vendor): [facility]gR Primary Antibody: 1E2 HER2 IHC Testing Methodology: HER2 IHC Test Type: Food and Drug Administration (FDA) cleared (test / vendor): [facility] HER2 IHC Primary Antibody: 4B5 Image Analysis: Not performed 5 10:50 AM EDT [facility] Clinical Information R92.8 - Abnormal findings on diagnostic imaging of breast [ICD-10-CM] 10:50 AM EDT [facility] Special and Immunohistochemical Stains Special Stain: There are no tasks to display for the given criteria. IHC: A1-4 ER Quantitative (%) A1-5 AR (Progesterone) Quantitative (%) A1-6 HER2/PALMER Quantitative A1-7 HER2 FISH Extra Slide A1-8 HER2 FISH Extra Slide A1-9 HER2 FISH Extra Slide All controls show appropriate reactivity. All immunohistochemist ry, in situ hybridization, and histochemical tests were developed by and are performed at the [facility], [address] [place] [address]. All tests reported here, except those addressing [...] negativity on decalcified specimens. 10:50 AM EDT [facility] Gross Description A. LEFT BREAST SOLID [...] Time: 1m Pat [place] 10:50 AM EDT [facility] Intradepartmental Consultation with Agreement This case was seen in consultation with Dr. Chacon, who concurs with the above diagnosis. 10:50 AM EDT [facility] Note: A resident was involved in the service. I attest I examined the relevant preparations for the specimens and confirmed the diagnosis or interpretation. 10:50 AM EDT [facility] Tissue Left breast structure / Unknown 01/15/2025 2:10 PM EDT 01/15/2025 4:00 PM EDT us Quinten Anderson MD LAB PATHOLOGY ORDERABLES Final Result [facility] [address] [place] [address] * (ABNORMAL) Mammography Breast Diagnostic Tomosynthesis Bilateral [...] presents following [facility]. TECHNIQUE: Bilateral diagnostic mammogram [...] PROCEDURES Final Result from Last 3 Months or Most Recently Relevant to Health [place] [address] Care Teams Box Hinge And Lock Attacher Relationship Specialty Start Date End Date Quinten Anderson MD [address] [place] [address] [address]1 [address]1 [place] [address] PCP - General 09/10/20
--- OUTSIDE RECORDS SUMMARY | 2025-04-14 12:58 | XMS_ITS | Encounter Summary ---
Author Organization Healthcare Address [address] [place] [address] Care Team Providers Care Training Developer Name Role Phone Quinten Anderson MD Primary Care Provider [phone] Encounter Details Date Type Department Care Team (Late st Contact Info) Description 01/08/2025 Orders Only External Location [address] [place] [address] Provider, External Social History Tobacco Use [...] Center [facility] [place] [address] Sari Murry [facility] 800 [place] [address] 07/30/2025 9:30 AM EDT Office Visit [facility] 740 [facility], 2nd [place] [phone] Parish Lou MD 800 [facility] Sari Murry [address] [address] documented as of this encounter [...] on filedocumented in this encounter Care Teams Training Developer Relationship Specialty Start Date End Date Quinten Anderson MD [address] [place] [address] #1 [address]1 [place] [address] PCP - General 09/10/20 documented as of this encounter
--- OUTSIDE RECORDS SUMMARY | 2025-04-14 12:58 | XMS_ITS | Clinical Summary ---
Author Organization [facility] ystem Address [address] [place] [address] Care Team Providers Care Mechanical Project Manager Name Role Phone Unavailable Primary Care [...]
[2025-04-14 13:14] LABS: Alanine Aminotransferase 16 U/L (12-78); Albumin Level 4.2 g/dl (3.5-5.0); Albumin/Globulin Ratio 1.6 (1.1-1.8); Alkaline Phosphatase 94 U/L (38-126); Anion Gap 11.6 mEq/L (5-15); Aspartate Amino Transferase 23 U/L (14-36); Bilirubin,Total 0.4 mg/dl (0.2-1.3); Blood Urea Nitrogen 25 mg/dl (7-17); Calcium 9.3 mg/dl (8.4-10.2); Carbon Dioxide 24 mmol/L (22.0-30.0); Chloride 107 mmol/L (98-107); Creatinine,Serum 1.10 mg/dl (0.52-1.04); Estimated Glomerular Filt Rate 48 ml/min (>60); GFR (African American) 58 ML/MIN (>60); Globulin 2.6 g/dL (1.3-3.2); Glucose 100 mg/dl (74-100); Potassium 3.6 mmoL/L (3.5-5.1); Sodium 139 mmol/L (136-145); Total Protein,Serum 6.8 g/dl (6.3-8.2)
[2025-04-14 13:15] LABS: Hematocrit 35.3 % (37.0-47.0); Hemoglobin 11.4 g/dL (12.2-16.2); Immature Granulocytes % 1.9 %; Mean Corpuscular HGB Conc 32.3 g/dL (31.8-35.4); Mean Corpuscular Hemoglobin 28.6 pg (27.0-31.2); Mean Corpuscular Volume 88.5 fl (81-99); Nucleated Red Blood Cells % 0.4 %; Platelet Count 247 K/mm3 (142-424); Red Blood Count 3.99 M/mm3 (4.20-5.40); Red Cell Distribution Width-SD 53.1 fL; White Blood Count 4.7 K/mm3 (4.8-10.8)
[2025-04-14 13:36] VITALS: BP 135/70; PULSE 80; RESP 18; TEMP 36.6; O2SAT 100
[2025-04-14] MEDS: ONDANSETRON 4MG ODT 16 MG SL (13:36)
[2025-04-14] MEDS: LORATADINE 10MG TABLET 10 MG PO (13:36)
[2025-04-14] MEDS: FAMOTIDINE 20MG TABLET 20 MG PO (13:36)
[2025-04-14] MEDS: DEXAMETHASONE 4MG TABLET 12 MG PO (13:36)
[2025-04-14] MEDS: SODIUM CHLORIDE 0.9% 100ML BAG 100 ML IV (13:45)
[2025-04-14] MEDS: SODIUM CHLORIDE 0.9% 10ML FLUSH SYRINGE 10 ML IV (13:46)
[2025-04-14 14:01] VITALS: BP 129/72; PULSE 85; RESP 18; O2SAT 99
[2025-04-14 14:09] LABS: RBC Morphology Normal; Total Cells Counted 100
[2025-04-14 14:31] VITALS: BP 131/68; PULSE 84; RESP 18; O2SAT 100
[2025-04-14] MEDS: CARBOplatin 150 MG in 0.9 % SODIUM CHLORIDE 100 ML 230 MG IV (15:04)
[2025-04-14 15:05] VITALS: BP 121/69; PULSE 79; RESP 18; O2SAT 100
[2025-04-14 15:41] VITALS: BP 110/66; PULSE 81; RESP 18; O2SAT 100
== END 2025-04-14 23:59 | disposition home or self-care (01) ==
LOC: INF 12:53
PROVIDERS: PCP Family Medicine; Visit Provider Internal Medicine Medical Oncology
DX: C34.12 Malignant neoplasm of upper lobe, left bronchus or lung (principal); Z51.11 Encounter for antineoplastic chemotherapy
CPT/HCPCS: 80053; 85007; 85025; 85027; 96413; 96415; 96417; J7060; J8540; J9045; J9267; Q0162

== ENCOUNTER 2025-04-21 10:58 | Outpatient (CLI) | payer MEDICARE, OTHER, SELFPAY ==
--- OUTSIDE RECORDS SUMMARY | 2025-04-21 11:03 | XMS_ITS | Clinical Summary ---
Author Organization [facility] ystem Address [address] [place] [address] Care Team Providers Care Equipment Sales Specialist Name Role Phone Unavailable Primary Care Provider [...]
--- OUTSIDE RECORDS SUMMARY | 2025-04-21 11:03 | XMS_ITS | Encounter Summary ---
Author Organization Healthcare Address [address] [place] [address] Care Team Providers Care Pipe Organ Mechanic Apprentice Name Role Phone Quinten Anderson MD Primary Care Provider [phone] Encounter Details Date Type Department Care Team (Late st Contact Info) Description 11/10/2022 Orders Only External Location [address] [place] [phone] Provider, External Social History Tobacco Use Types [...] Breast Care [facility] [place] [address] Sari Murry [facility] 800 [place] [address] 07/30/2025 9:30 AM EDT Office Visit [facility] 740 [facility], 2nd [place] [phone] Parish Lou MD 800 [facility] S[address] [address] documented as of this encounter [...] on filedocumented in this encounter Care Teams Pipe Organ Mechanic Apprentice Relationship Specialty Start Date End Date Quinten Anderson MD [address] [place] [address] #1 #1 [place] [address] PCP - General 09/10/20 documented as of this encounter
--- OUTSIDE RECORDS SUMMARY | 2025-04-21 11:03 | XMS_ITS | Encounter Summary ---
Author Organization Healthcare Address [address] [place] [address] Care Team Providers Care Stacking Machine Operator Name Role Phone Quinten Anderson MD Primary Care Provider Encounter Details Date Type Department Care Team (Late st Contact Info) Description 08/26/2024 Orders Only External Location 800 [place] [address] Provider, External Social History Tobacco [...] Center [facility] [place] [address] Sari Murry [facility] 800 [place] [address] 07/30/2025 9:30 AM EDT Office Visit [facility] 740 [facility], 2nd [place] [phone] Parish Lou MD 800 [facility] [address] [address] documented as of this encounter [...] on filedocumented in this encounter Care Teams Stacking Machine Operator Relationship Specialty Start Date End Date Quinten Anderson MD [address] [place] [address] #1 [address]1 [place] [address] PCP - General 09/10/20 documented as of this encounter
--- OUTSIDE RECORDS SUMMARY | 2025-04-21 11:03 | XMS_ITS | Encounter Summary ---
Author Organization Healthcare Address [address] [place] [address] Care Team Providers Care Project Accountant Name Role Phone Quinten Anderson MD Primary Care Provider [phone] Encounter Details Date Type Department Care Team (Late st Contact Info) Description 12/15/2022 Orders Only External Location 800 [place] [phone] Provider, External Social History Tobacco Use Types [...] Breast Care [facility] [place] [address] Sari Murry [facility] 800 [place] [address] 07/30/2025 9:30 AM EDT Office Visit [facility] 740 [facility], 2nd [place] [phone] Parish Lou MD 800 [facility] [address] [address] documented as of this encounter [...] on filedocumented in this encounter Care Teams Project Accountant Relationship Specialty Start Date End Date Quinten Anderson MD [address] [place] [address] #1 #1 [place] [address] PCP - General 09/10/20 documented as of this encounter
--- OUTSIDE RECORDS SUMMARY | 2025-04-21 11:03 | XMS_ITS | Encounter Summary ---
Author Organization Healthcare Address [address] [place] [address] Care Team Providers Care Black Oxide Operator Name Role Phone Quinten Anderson MD Primary Care Provider [phone] Encounter Details Date Type Department Care Team (Late st Contact Info) Description 11/22/2022 Orders Only External Location [address] [place] [phone] Provider, External Social History Tobacco Use [...] Center [facility] [place] [address] [facility] 800 [place] [address] 07/30/2025 9:30 AM EDT Office Visit [facility] 740 [facility], 2nd [place] [phone] Parish Lou MD 800 [facility] [address] [address] documented as of this encounter [...] on filedocumented in this encounter Care Teams Black Oxide Operator Relationship Specialty Start Date End Date Quinten Anderson MD [address] [place] [address] #1 #1 [place] [address] PCP - General 09/10/20 documented as of this encounter
--- OUTSIDE RECORDS SUMMARY | 2025-04-21 11:03 | XMS_ITS | Clinical Summary ---
Author Organization Healthcare Address [address] [place] [address] Care Team Providers Care Feed Adviser Name Role Phone Quinten Anderson MD Primary Care Provider [phone] Allergies Active Allergy Reactions Criticality Noted Date [...] from 01/29/2025:Stage IIA(cT3, cN0, cM0, G2, ER+, MT+, HER2-) - Signed by Parish Lou MD on 02/08/2025 Encounters Date Type Department Care Team Description 02/03/2025 Travel 01/29/2025 11:00 AM EDT Office Visit [facility] 740 [facility], 2nd [place] [address] Parish Lou MD Malignant neoplasm of upper-outer quadrant of left breast in female, estrogen receptor positive (Primary Dx) 01/29/2025 Travel 01/22/2025 Telephone PAV [facility] 234 [facility] 800 [place] [address] Liudmila Bravo RN from Last 3 Months Family History Medical [...] Description 07/30/2025 8:00 AM EDT Appointment PAV [address] [place] [address] 07/30/2025 9:30 AM EDT Office Visit PAV [facility] 740 [facility], 2nd [place] [address] Parish Lou MD 800 [facility] [address] [place] [address] Health Maintenance Due Date Last Done Comments [facility]-Bone Density Scan 1945 [facility]-Depression Screening 1945 [facility]-Hepatitis C Screening 1945 [facility]-Medicare Annual Wellness (AWV) 1945 [facility]-/Child/Adol SDOH Screenings 01/01/1947 [facility]- SDOH Screenings 1964 [facility]-Adult SDOH Screenings 1964 [facility]-Pneumococcal Vaccine: 50+ Years (1 of 2 - PCV) 1965 [facility]-Zoster Vaccines (1 of 2) 1965 [facility]-RSV Vaccine: 60+ Years or (1 - 1-dose 75+ series) 2021 [id number] Vaccine (3 - season) 2024 04/08/2021, 07/07/2020 [...] Recently Relevant to Health Maintenance Results * (ABNORMAL) Mammography Breast Diagnostic Tomosynthesis Bilateral (01/06/2025 10:55 AM EDT) Anatomical Region Laterality Modality Breast Bilateral Mammography, [facility] er Impressions 01/06/2025 3:17 PM EDT Right [...] presents following [facility]. TECHNIQUE: Bilateral diagnostic mammogram was [...] Recently Relevant to Health Maintenance [place] [address] [facility] Care Teams Feed Adviser Relationship Specialty Start Date End Date Quinten Anderson MD [address] [place] [address] #1 #1 [place] [address] PCP - General 09/10/20
--- OUTSIDE RECORDS SUMMARY | 2025-04-21 11:03 | XMS_ITS | Encounter Summary ---
Author Organization Healthcare Address [address] [place] [address] Care Team Providers Care Switchboard Mechanic Name Role Phone Quinten Anderson MD Primary Care Provider [phone] Encounter Details Date Type Department Care Team (Late st Contact Info) Description 12/15/2022 Orders Only External Location 800 [place] [phone] Marty Hargrove MD [address] [facility] [address] [place] [address] Social History Tobacco Use Types Packs/Day Years [...] [facility] [place] [address] Sari Murry Building 800 [place] [address] 07/30/2025 9:30 AM EDT Office Visit [facility] 740 [facility], 2nd [place] [phone] Parish Lou MD 800 [facility] Sari Murry [address] [place] [address] documented as of this encounter [...] filedocumented in this encounter Care Teams Switchboard Mechanic Relationship Specialty Start Date End Date Quinten Anderson MD [address] [place] [address] #1 [address]1 [place] [address] PCP - General 09/10/20 documented as of this encounter
--- OUTSIDE RECORDS SUMMARY | 2025-04-21 11:03 | XMS_ITS | Encounter Summary ---
Author Organization Healthcare Address [address] [place] [address] Care Team Providers Care Power Electronics Engineer Name Role Phone Quinten Anderson MD Primary Care Provider [phone] Encounter Details Date Type Department Care Team (Late st Contact Info) Description 01/08/2025 Orders Only External Location [address] [place] [phone] Provider, External Social History Tobacco Use [...] Breast Care [facility] [place] [address] Sari Murry [facility] 800 [place] [address] 07/30/2025 9:30 AM EDT Office Visit [facility] 740 [facility], 2nd [place] [phone] Parish Lou MD 800 [facility] Sari Murry [address] [address] documented as of this [...] on filedocumented in this encounter Care Teams Power Electronics Engineer Relationship Specialty Start Date End Date Quinten Anderson MD [address] [place] [address] #1 #1 [place] [address] PCP - General 09/10/20 documented as of this encounter
--- OUTSIDE RECORDS SUMMARY | 2025-04-21 11:03 | XMS_ITS | Data Portability ---
Author Organization [facility] Address [address] [facility] [address] [place] [address] Assessment Encounter Date Assessment Date Assessment LastModified [...] Updated DateTime 08/26/2018 167.64 cm 29.1 kg/m2 70229.63 g 122/82 mm[Hg] Kamrynbrendan BargerReyes [facility] 08/26/2018 13:05:29 Social History Question Answer Notes LastModified by Organizat ion Details LastModified Time Tobacco Smoking Status Never Smoker Kamrynbrendan BargerReyes [facility] 08/26/2018 13:04:48 What Was The Date Of [...] ICD10 Code Diagnosis IMO Codes Diagnosis Note [id number] DIEGO BENITEZ MD [facility]G [facility] [address] [place] [address] 08/26/2018 11:44:08 08/27/2018 15:17:56 Carpal tunnel syndrome of right wrist [id number] 26401 G56.01 [id number] DIEGO BENITEZ MD SURGERY SCHEDULE [address] [place] [address] 09/06/2018 10:35:19 09/06/2018 10:36:44 [id number] DIEGO BENITEZ MD [facility]UROS[facility]G [facility] [address] [address] 09/20/2018 11:05:14 09/20/2018 14:07:43 Health Concerns Section Related Observation LastModified by Organization Detai ls LastModified Time None Recorded Concern Status LastModified by Organization Details LastModified Time None Recorded Advance Directives Directive None Recorded Payers Insurance Date Sequence Insurance Name Policy Number Policy Macdonald Covered Member ID Macdonald Member ID Guarantor Name 03/24/2020 1 [place] Liza Christiansen [id number] Liza Christiansen 09/17/2018 2 FOR LIFE ( - MEDICARE SUPPLEMENT) Liza Christiansen [id number] Liza Christiansen Notes Date Note Type Note [...] tingling and weakness. DIEGO BENITEZ MD [address] [place], [address], [facility] 08/26/2018 13:11:50 OBGyn Episode No OBEpisode recorded.
--- OUTSIDE RECORDS SUMMARY | 2025-04-21 11:03 | XMS_ITS | Encounter Summary ---
Author Organization Healthcare Address [address] [place] [address] Care Team Providers Care Poultry Farm Worker Name Role Phone Quinten Anderson MD Primary Care Provider [phone] Encounter Details Date Type Department Care Team (Late st Contact Info) Description 10/11/2022 Orders Only External Location [address] [place] [phone] Provider, External Social History Tobacco Use [...] Breast Care [facility] [place] [address] Sari Murry [facility] 800 [place] [address] 07/30/2025 9:30 AM EDT Office Visit [facility] 740 [facility], 2nd [place] [phone] Parish Lou MD 800 [facility] [address] [address] documented as of this encounter [...] on filedocumented in this encounter Care Teams Poultry Farm Worker Relationship Specialty Start Date End Date Quinten Anderson MD [address] [place] [address] #1 #1 [place] [address] PCP - General 09/10/20 documented as of this encounter
--- OUTSIDE RECORDS SUMMARY | 2025-04-21 11:03 | XMS_ITS | Encounter Summary ---
Author Organization Healthcare Address [address] [place] [address] Care Team Providers Care Lamp Shade Joiner Name Role Phone Quinten Anderson MD Primary Care Provider [phone] Encounter Details Date Type Department Care Team (Late st Contact Info) Description 12/01/2024 Orders Only External Location 800 [place] [address] Provider, External Social History Tobacco [...] Breast Care [facility] [place] [address] Sari Murry [facility] 800 [place] [address] 07/30/2025 9:30 AM EDT Office Visit [facility] [address] [facility], 2nd [place] [phone] Parish Lou MD [address] [facility] Sari Murry [address] [address] documented as of this encounter [...] on filedocumented in this encounter Care Teams Lamp Shade Joiner Relationship Specialty Start Date End Date Quinten Anderson MD [address] [place] [address] #1 [address]1 [place] [address] PCP - General 09/10/20 documented as of this encounter
[2025-04-21 11:19] LABS: Hematocrit 34.4 % (37.0-47.0); Hemoglobin 11.2 g/dL (12.2-16.2); Immature Granulocytes % 1.5 %; Mean Corpuscular HGB Conc 32.6 g/dL (31.8-35.4); Mean Corpuscular Hemoglobin 28.9 pg (27.0-31.2); Mean Corpuscular Volume 88.7 fl (81-99); Nucleated Red Blood Cells % 0 %; Platelet Count 166 K/mm3 (142-424); Red Blood Count 3.88 M/mm3 (4.20-5.40); Red Cell Distribution Width-SD 55.0 fL; White Blood Count 2.6 K/mm3 (4.8-10.8)
[2025-04-21 11:21] VITALS: BMI 34.4
[2025-04-21 11:22] LABS: Albumin Level 3.6 g/dl (3.5-5.0); Chloride 104 mmol/L (98-107); Potassium 4.0 mmoL/L (3.5-5.1); Sodium 133 mmol/L (136-145)
[2025-04-21 11:25] LABS: Alanine Aminotransferase 13 U/L (12-78); Albumin/Globulin Ratio 1.5 (1.1-1.8); Alkaline Phosphatase 84 U/L (38-126); Anion Gap 8.0 mEq/L (5-15); Aspartate Amino Transferase 20 U/L (14-36); Bilirubin,Total 0.2 mg/dl (0.2-1.3); Blood Urea Nitrogen 15 mg/dl (7-17); Calcium 9.4 mg/dl (8.4-10.2); Carbon Dioxide 25 mmol/L (22.0-30.0); Creatinine Clearance Estimated 62 mL/min (50-200); Creatinine,Serum 1.00 mg/dl (0.52-1.04); Estimated Glomerular Filt Rate 54 ml/min (>60); GFR (African American) 65 ML/MIN (>60); Globulin 2.4 g/dL (1.3-3.2); Glucose 96 mg/dl (74-100); Total Protein,Serum 6.0 g/dl (6.3-8.2)
[2025-04-21] MEDS: DEXAMETHASONE 4MG TABLET 12 MG (11:48)
[2025-04-21] MEDS: LORATADINE 10MG TABLET 10 MG PO (11:48)
[2025-04-21] MEDS: FAMOTIDINE 20MG TABLET 20 MG (11:48)
[2025-04-21] MEDS: ONDANSETRON 4MG ODT 16 MG (11:48)
[2025-04-21 12:10] LABS: RBC Morphology Normal; Total Cells Counted 100
[2025-04-21] MEDS: SODIUM CHLORIDE 0.9% 100ML BAG 100 ML IV (12:22)
[2025-04-21 12:25] VITALS: BP 96/56; PULSE 103; RESP 18; O2SAT 97
[2025-04-21 13:33] VITALS: BP 129/62; PULSE 91; RESP 22; O2SAT 96
[2025-04-21] MEDS: CARBOplatin 150 MG in 0.9 % SODIUM CHLORIDE 100 ML 230 MG IV (13:33)
[2025-04-21 14:13] VITALS: BP 135/61; PULSE 90; RESP 18; O2SAT 96
== END 2025-04-21 23:59 | disposition home or self-care (01) ==
PROVIDERS: PCP Family Medicine; Visit Provider Internal Medicine Medical Oncology
DX: C34.12 Malignant neoplasm of upper lobe, left bronchus or lung (principal); Z51.11 Encounter for antineoplastic chemotherapy
CPT/HCPCS: 80053; 85007; 85025; 85027; 96413; 96415; 96417; J7060; J8540; J9045; J9267; Q0162